=== PATIENT | male | born 1945 | race Caucasian/White ===

== ENCOUNTER 2017-12-12 15:57 | Inpatient (IN) | payer MEDICARE ==
[2017-12-12] MEDS ORDERED: ceFAZolin IN SWFI 2 GM/20 ML SYRINGE IVP ONE (16:09)
[2017-12-12] MEDS ORDERED: MORPHINE SULFATE 2 MG/ML SYRINGE IVP STA (16:20)
[2017-12-12] MEDS ORDERED: DIPH,PERTUS(ACELL)TETVAC-LF 0.5 ML VIAL IM ONE (16:35)
[2017-12-12 16:38] LABS: Basophils # (A) 0.1 k/uL (0-0.2); Basophils % (A) 1 %; Eosinophils # (A) 0.7 k/uL (0-0.7); Eosinophils % (A) 10 %; HCT 45.2 % (39.0-53.0); HGB 14.5 gm/dL (13.0-17.5); Lymphocytes # (A) 1.4 k/uL (1.0-4.8); Lymphocytes % (A) 21 %; MCH 30.6 pg (25.0-35.0); MCHC 32.2 g/dL (31.0-37.0); MCV 95.2 fL (80.0-100.0); Mean Platelet Volume 6.8; Monocytes # (A) 0.5 k/uL (0-1.0); Monocytes % (A) 7 %; Neutrophils # (A) 4.1 k/uL (1.3-7.7); Neutrophils % (A) 59 %; Platelet Count 310 k/uL (150-450); RBC 4.75 m/uL (4.30-5.90); RDW 13.3 % (11.5-15.5); WBC 6.9 k/uL (3.8-10.6)
--- NOTE | 2017-12-12 16:40 | XR ---
Left forearm HISTORY: Trauma and pain 2 views of the left forearm There is a comminuted intra-articular fracture of the distal metaphyseal left radius, comminuted frac ture of the distal ulna with displaced fracture fragments, angulation, lateral displacement of the di stal radius in relation to the ulna. Nonstandard views. Lucency in the soft tissues may be due to ope n fracture. There is soft tissue swelling. IMPRESSION: Findings suggest open fractures as described
[2017-12-12 16:48] LABS: Albumin 4.5 g/dL (3.5-5.0); Potassium 4.7 mmol/L (3.5-5.1); Total Bilirubin 0.7 mg/dL (0.2-1.3); Total Protein 7.3 g/dL (6.3-8.2)
[2017-12-12 16:53] LABS: INR 1.1 (<1.2); Prothrombin Time 10.4 sec (9.0-12.0)
[2017-12-12 16:55] LABS: Partial Thromboplastin Time 19.4 sec (22.0-30.0)
--- NOTE | 2017-12-12 17:25 | CT ---
EXAMINATION TYPE: CT brain saul phillips con DATE OF EXAM: 12/12/2017 COMPARISON: None HISTORY: Fall from ladder neck pain. Headache. CT DLP: 1421.3 mGycm Automated exposure control for dose reduction was used. TECHNIQUE: CT scan of the head and cervical spine are performed without contrast. FINDINGS: There is some cerebral cortical atrophy. There is no mass effect nor midline shift. There is no sign of intracranial hemorrhage. The calvarium is intact. There is opacification of most of th e right mastoid sinus. There is extensive mucosal thickening in the ethmoid sinus and maxillary sinus es. There is also involvement of frontal and sphenoid sinus. The calvarium is intact. Cervical vertebra have normal alignment. Posterior elements are intact. There is some mild narrowing and spurring at C5-6. Facet joints are intact. There is mild hypertrophic multilevel facet arthropath y. The skull base is intact. IMPRESSION: No acute intracranial abnormality. Severe pansinusitis. There is also chronic right mastoiditis. Ther e is mucosal thickening also in the right middle ear consistent with otitis media. Mild spondylotic changes in the cervical spine. No fracture.
--- NOTE | 2017-12-12 17:25 | ED ---
Upper Extremity HPI <Gregory Fulton - Last Filed: 12/12/17 17:32> - General Source: patient Mode of arrival: ambulatory Limitations: no limitations <Josefina Marx - Last Filed: 12/12/17 18:57> - General Chief Complaint: Extremity Injury, Upper Stated Complaint: CUT WRIST Time Seen by Provider: 12/12/17 16:08 - History of Present Illness Initial Comments: This a 72-year-old male with past medical history of type 2 diabetes, hypertension, coronary artery disease status post quadruple bypass on plavix who presents today for chief complaint of fall and left wrist pain. Patient states that about 20 minutes prior to arrival he was cleaning out his gutters, he rinsed off the deck. When he went up with the ladder he was two rungs from the roof he stated this was about 8 ft in the air, when the ladder slipped on the wet deck. When he reached the ground he extended his left outstretched hand which he stated took most of the fall he then rolled onto his left shoulder he hit his head on the deck after he rolled. Denies falling directly on his head. Patient denies falling onto his back or chest. Patient states that the pain in his wrist is 7/10, he can see his bone sticking through his skin. He was able to wiggle his fingers, they are warm to touch. Patient denies headache, chest pain, shortness breath, back pain, pain in any other extremity, gait abnormalities, dysphagia, speech changes. (Josefina Marx) - Related Data Home Medications Medication Instructions Recorded Confirmed ALPRAZolam [Xanax] 0.5 mg PO TID PRN 12/12/17 12/12/17 Albuterol Inhaler [Ventolin Hfa 1 puff INHALATION RT-Q6H PRN 12/12/17 12/12/17 Inhaler] Allopurinol [Zyloprim] 100 mg PO DAILY 12/12/17 12/12/17 Aspirin EC [Ecotrin Low Dose] 162 mg PO DAILY 12/12/17 12/12/17 Atorvastatin [Lipitor] 80 mg PO HS 12/12/17 12/12/17 Budesonide/Formoterol Fumarate 2 puff INHALATION RT-BID 12/12/17 12/12/17 [Symbicort 80-4.5 Mcg Inhaler] Clopidogrel Bisulfate [Plavix] 75 mg PO DAILY 12/12/17 12/12/17 Famotidine 40 mg PO BID 12/12/17 12/12/17 Fluticasone Nasal [place] [Flonase 1 spray EA NOSTRIL Q12H 12/12/17 12/12/17 Nasal [place]] Lisinopril [Zestril] 5 mg PO BID 12/12/17 12/12/17 Loratadine [Claritin] 10 mg PO DAILY PRN 12/12/17 12/12/17 Metoprolol Tartrate [Lopressor] 100 mg PO BID 12/12/17 12/12/17 Montelukast [Singulair] 10 mg PO DAILY 12/12/17 12/12/17 Sildenafil Citrate 100 mg PO DIRECTED PRN 12/12/17 12/12/17 metFORMIN HCL 1,000 mg PO BID 12/12/17 12/12/17 Allergies Allergy/AdvReac Type Severity Reaction Status Date / Time No Known Allergies Allergy Verified 12/12/17 16:46 Review of Systems ROS Other: All systems not noted in ROS Statement are negative. <Gregory Fulton - Last Filed: 12/12/17 17:32> ROS Other: All systems not noted in ROS Statement are negative. <Josefina Marx - Last Filed: 12/12/17 18:57> ROS Statement: Those systems with pertinent positive or pertinent negative responses have been documented in the HPI. Past Medical History Past Medical History: Coronary Artery Disease (CAD), Chest Pain / Angina, Diabetes Mellitus, Hyperlipidemia, Hypertension History of Any Multi-Drug Resistant Organisms: None Reported Past Surgical History: Coronary Bypass/CABG Past Psychological History: No Psychological Hx Reported Smoking Status: Former smoker Past Alcohol Use History: None Reported Past Drug Use History: None Reported <Josefina Marx - Last Filed: 12/12/17 18:57> General Exam <Gregory Fulton - Last Filed: 12/12/17 17:32> Limitations: no limitations <Josefina Marx - Last Filed: 12/12/17 18:57> - General Exam Comments Initial Comments: General: The patient is awake and alert, in no distress, and does not appear acutely ill. Eye: Pupils are equal, round and reactive to light, extra-ocular movements are intact. No nystagmus. There is normal conjunctiva bilaterally. No signs of icterus. Ears, nose, mouth and throat: There are moist mucous membranes and no oral lesions. Neck: The neck is supple, there is no tenderness or JVD. No midline or paravertebral tenderness to palpation of the C-spine. Patient is able to for flex, rotate, extend and lateral flex at the C-spine without difficulty or pain. Cardiovascular: There is a regular rate and rhythm. No murmur, rub or gallop is appreciated. Respiratory: Lungs are clear to auscultation, respirations are non-labored, breath sounds are equal. No wheezes, stridor, rales, or rhonchi. Gastrointestinal: Soft, non-distended, non-tender abdomen without masses or organomegaly noted. There is no rebound or guarding present. No CVA tenderness. Bowel sounds are unremarkable. Musculoskeletal: Gross deformity of the left wrist, laterally. 2cm laceration with penetrating bone fragments. Pt unable to range at the left wrist secondary to pain, tenderness to palpation over the distal forearm. Compartments soft and compressible. Pt able to wiggle fingers. Sensation intact of the hands b/l. Unable to palpate the radial pulse, the left hand is warm and capillary refill < 2seconds. Right radial pulse 2+. Pt is able to make the ok, fingers crossed and thumbs up sign with the left hand. Patient denies any pain to palpation over the shoulders, elbows, hips, knees, lower extremities and feet bilaterally. Pelvic rock negative. No rotation noted of the lower external ears bilaterally. Full range motion with strength 5/5 of the lower extremities equally bilaterally. 5/5 strength at the shoulder and elbows of the UE b/l. Neurological: A&O x 3. CN II-XII intact, There are no obvious motor or sensory deficits. Coordination appears grossly intact. Speech is normal. Skin: Skin is warm and dry and no rashes or lesions are noted. Psychiatric: Cooperative, appropriate mood & affect, normal judgment. (Josefina Marx) Vital Signs 12/12/17 16:04 Temperature 98.2 F Pulse Rate 86 Respiratory 20 Rate Blood Pressure 180/96 O2 Sat by Pulse 100 Oximetry Medical Decision Making - Lab Data Result diagrams: 12/12/17 16:27 12/12/17 16:27 <Gregory Fulton - Last Filed: 12/12/17 17:32> - Lab Data Result diagrams: 12/12/17 16:27 12/12/17 16:27 <Josefina Marx - Last Filed: 12/12/17 18:57> - Medical Decision Making I, Pablo Fulton, personally saw and examined the patient. I have reviewed and agree with the PA findings, including all diagnostic interpretations and treatment plans as written unless otherwise stated. I was present for the reyes portions of any procedures performed and the inclusive time noted for any critical care statement. (Gregory Fulton) CT negative for intracranial process, revealed acute otitis media. X-ray left wrist revealed a comminuted intra-articular fracture the distal left radius with a comminuted fracture of the distal ulna with displacement of fragments, angulatin and mild lateral displacement of the distal radius in relation to ulna. The ulna has penetrated through the soft tissues of the lateral aspect of the wrist. Pt was started on 2g ancef prior to imaging. Labs obtained and reviewed. Orthopedics consulted at 4:30 PM. I spoke with Es the Physician Exercise Specialist. I paged a second time at 5:25pm. Dr. Rowland returned page immediately, admitted pt for operative washout and closed reduction with IV abx. No further instruction. Pt admitted to [facility] in stable condition. (Josefina Marx) - Lab Data Lab Results 12/12/17 12/12/17 12/12/17 Range/Units 16:27 16:27 16:27 WBC 6.9 (3.8-10.6) k/uL RBC 4.75 (4.30-5.90) m/uL Hgb 14.5 (13.0-17.5) gm/dL Hct 45.2 (39.0-53.0) % MCV 95.2 (80.0-100.0) fL MCH 30.6 (25.0-35.0) pg MCHC 32.2 (31.0-37.0) g/dL RDW 13.3 (11.5-15.5) % Plt Count 310 (150-450) k/uL Neutrophils % 59 % Lymphocytes % 21 % Monocytes % 7 % Eosinophils % 10 % Basophils % 1 % Neutrophils # 4.1 (1.3-7.7) k/uL Lymphocytes # 1.4 (1.0-4.8) k/uL Monocytes # 0.5 (0-1.0) k/uL Eosinophils # 0.7 (0-0.7) k/uL Basophils # 0.1 (0-0.2) k/uL PT (9.0-12.0) sec INR (<1.2) APTT (22.0-30.0) sec Sodium 141 (137-145) mmol/L Potassium 4.7 (3.5-5.1) mmol/L Chloride 107 (98-107) mmol/L Carbon Dioxide 19 L (22-30) mmol/L Anion Gap 15 mmol/L BUN 23 H (9-20) mg/dL Creatinine 1.02 (0.66-1.25) mg/dL Est GFR (CKD-EPI)AfAm 86 (>60 ml/min/1.73 sqM) Est GFR (CKD-EPI)NonAf 74 (>60 ml/min/1.73 sqM) Glucose 125 H (74-99) mg/dL Calcium 10.0 (8.4-10.2) mg/dL Total Bilirubin 0.7 (0.2-1.3) mg/dL AST 33 (17-59) U/L ALT 37 (21-72) U/L Alkaline Phosphatase 85 (38-126) U/L Total Protein 7.3 (6.3-8.2) g/dL Albumin 4.5 (3.5-5.0) g/dL Blood Type A Positive Blood Type Recheck No Antibody Screen NEGATIVE Spec Expiration Date 12/15/2017232612/12/17 Range/Units 16:27 WBC (3.8-10.6) k/uL RBC (4.30-5.90) m/uL Hgb (13.0-17.5) gm/dL Hct (39.0-53.0) % MCV (80.0-100.0) fL MCH (25.0-35.0) pg MCHC (31.0-37.0) g/dL RDW (11.5-15.5) % Plt Count (150-450) k/uL Neutrophils % % Lymphocytes % % Monocytes % % Eosinophils % % Basophils % % Neutrophils # (1.3-7.7) k/uL Lymphocytes # (1.0-4.8) k/uL Monocytes # (0-1.0) k/uL Eosinophils # (0-0.7) k/uL Basophils # (0-0.2) k/uL PT 10.4 (9.0-12.0) sec INR 1.1 (<1.2) APTT 19.4 L (22.0-30.0) sec Sodium (137-145) mmol/L Potassium (3.5-5.1) mmol/L Chloride (98-107) mmol/L Carbon Dioxide (22-30) mmol/L Anion Gap mmol/L BUN (9-20) mg/dL Creatinine (0.66-1.25) mg/dL Est GFR (CKD-EPI)AfAm (>60 ml/min/1.73 sqM) Est GFR (CKD-EPI)NonAf (>60 ml/min/1.73 sqM) Glucose (74-99) mg/dL Calcium (8.4-10.2) mg/dL Total Bilirubin (0.2-1.3) mg/dL AST (17-59) U/L ALT (21-72) U/L Alkaline Phosphatase (38-126) U/L Total Protein (6.3-8.2) g/dL Albumin (3.5-5.0) g/dL Blood Type Blood Type Recheck Antibody Screen Spec Expiration Date Disposition <Gregory Fulton - Last Filed: 12/12/17 17:32> Is patient prescribed a controlled substance at d/c from ED?: No Time of Disposition: 17:30 Decision Date: 12/12/17 Decision Time: 17:30 <Josefina Marx - Last Filed: 12/12/17 18:57> Clinical Impression: Open fracture of distal ulna, Displaced comminuted fracture of shaft of radius , left arm, initial encounter for closed fracture Disposition: HOME SELF-CARE Condition: Stable
[2017-12-12] MEDS ORDERED: SODIUM CHLORIDE 0.9% 1,000 ML IV SCH ×2 (17:30→20:00)
[2017-12-12] MEDS ORDERED: fentaNYL (PF) 50 MCG/ML 2 ML AMP ONE (18:42)
[2017-12-12] MEDS ORDERED: LACTATED RINGERS 1,000 ML IV ONE (18:42)
[2017-12-12] MEDS ORDERED: ROCURONIUM BROMIDE 10 MG/ML 10 ML VIAL IV ONE (18:42)
[2017-12-12] MEDS ORDERED: LIDOCAINE 1% INJ 10MG/ML (20 ML MDV) ONE (18:42)
[2017-12-12] MEDS ORDERED: MIDAZOLAM 2 MG/2 ML VIAL ONE (18:42)
[2017-12-12] MEDS ORDERED: HYDROmorphone (PF) 1 MG/ML ONE (18:42)
[2017-12-12] MEDS ORDERED: PROPOFOL 10 MG/ML 20 ML VIAL IV ONE (18:42)
[2017-12-12] MEDS ORDERED: SODIUM CHLORIDE 0.9% IRRIGATIO 3,000 ML IRRIGATION ONE (18:45)
--- NOTE | 2017-12-12 18:46 | P.HPOR ---
History of Present Illness H&P Date: 12/12/17 The patient is a right-hand dominant 72-year-old male with a medical history significant for type 2 diabetes who presents with an isolated injury to his left wrist. Earlier today the patient fell off his ladder and injured the left arm. He had an open wound and deformity of the wrist. He was brought to the ER where x-rays and clinical exam showed an open distal radius and ulna fracture. At the time of my evaluation the patient is complaining of isolated left wrist pain. He denies hitting his head or losing consciousness. He denies pain in his neck or back. Past Medical History Past Medical History: Coronary Artery Disease (CAD), Chest Pain / Angina, Diabetes Mellitus, Hyperlipidemia, Hypertension History of Any Multi-Drug Resistant Organisms: None Reported Past Surgical History: Coronary Bypass/CABG Past Psychological History: No Psychological Hx Reported Smoking Status: Former smoker Past Alcohol Use History: None Reported Past Drug Use History: None Reported Medications and Allergies Home Medications Medication Instructions Recorded Confirmed Type ALPRAZolam [Xanax] 0.5 mg PO TID PRN 12/12/17 12/12/17 History Albuterol Inhaler [Ventolin Hfa 1 puff INHALATION RT-Q6H PRN 12/12/17 12/12/17 History Inhaler] Allopurinol [Zyloprim] 100 mg PO DAILY 12/12/17 12/12/17 History Aspirin EC [Ecotrin Low Dose] 162 mg PO DAILY 12/12/17 12/12/17 History Atorvastatin [Lipitor] 80 mg PO HS 12/12/17 12/12/17 History Budesonide/Formoterol Fumarate 2 puff INHALATION RT-BID 12/12/17 12/12/17 History [Symbicort 80-4.5 Mcg Inhaler] Clopidogrel Bisulfate [Plavix] 75 mg PO DAILY 12/12/17 12/12/17 History Famotidine 40 mg PO BID 12/12/17 12/12/17 History Fluticasone Nasal [place] [Flonase 1 spray EA NOSTRIL Q12H 12/12/17 12/12/17 History Nasal [place]] Lisinopril [Zestril] 5 mg PO BID 12/12/17 12/12/17 History Loratadine [Claritin] 10 mg PO DAILY PRN 12/12/17 12/12/17 History Metoprolol Tartrate [Lopressor] 100 mg PO BID 12/12/17 12/12/17 History Montelukast [Singulair] 10 mg PO DAILY 12/12/17 12/12/17 History Sildenafil Citrate 100 mg PO DIRECTED PRN 12/12/17 12/12/17 History metFORMIN HCL 1,000 mg PO BID 12/12/17 12/12/17 History Allergies Allergy/AdvReac Type Severity Reaction Status Date / Time No Known Allergies Allergy Verified 12/12/17 16:46 Physical Examination on examination the patient is in no apparent distress and is alert and able to answer questions. His head is normocephalic and atraumatic. He has no cervical spine tenderness. He demonstrates nonlabored breathing with symmetric chest expansion. He has no obvious deformities or tenderness throughout the right upper extremity and bilateral lower extremities. A focused examination of the left upper extremity was conducted. On inspection there is a dressing over the ulnar aspect of the arm. the dressing is saturated with blood. There is an open wound along the ulnar border of the wrist. There is an obvious deformity at the distal forearm. There is no tenderness over the left shoulder elbow. The arm and forearm are soft. The radial pulses palpable. The fingers are warm and well-perfused brisk capillary refill. Motor and sensory function are intact in the distribution of the median, ulnar, and radial nerves. There is no pain with passive range of motion of the fingers. Results x-rays of the left forearm show a displaced, comminuted intra-articular distal radius and ulna fracture - Labs Labs: Abnormal Lab Results - Last 24 Hours (Table) 12/12/17 12/12/17 Range/Units 16:27 16:27 APTT 19.4 L (22.0-30.0) sec Carbon Dioxide 19 L (22-30) mmol/L BUN 23 H (9-20) mg/dL Glucose 125 H (74-99) mg/dL H & H 12/12/17 Range/Units 16:27 Hgb 14.5 (13.0-17.5) gm/dL Hct 45.2 (39.0-53.0) % Coagulation 12/12/17 Range/Units 16:27 INR 1.1 (<1.2) Result Diagrams: 12/12/17 16:27 12/12/17 16:27 Assessment and Plan Assessment: The patient is a right-hand dominant 72-year-old male with a medical history significant for type 2 diabetes and coronary artery disease presenting with an open left distal radius and ulna fracture Plan: I recommended taking the patient for an urgent irrigation and debridement, closed reduction, pinning, and application of splint for his left forearm injury. He was given IV antibiotics in the emergency department and he will be kept overnight to receive 2 more doses of IV antibiotics. I have artery discussed the case with my hand partner Dr. Kvng Kelly who has agreed to definitively manage the patient's fractures on an outpatient basis. We discussed the potential risks and complications of the above mentioned procedure and also that he will likely need definitive fixation. The patient agreed to this and provided his consent to go forward with surgery.
[2017-12-12] MEDS ORDERED: HYDROcodone/APAP 5-325MG 1 EACH TAB PO PRN ×2 (19:56)
[2017-12-12] MEDS ORDERED: NALOXONE 0.4 MG/ML 1 ML VIAL IV PRN (19:56)
--- NOTE | 2017-12-12 19:56 | P.OP ---
Date of Procedure: 12/12/17 Preoperative Diagnosis: 1. open left distal radius and ulna fracture 2. Type 2 diabetes 3. Coronary artery disease Postoperative Diagnosis: same Procedure(s) Performed: 1. Closed reduction and percutaneous pinning left distal radius fracture as part of a staged procedure 2. Irrigation and debridement of open left distal radius and ulna fracture ( skin, subcutaneous tissue, muscle, and devitalized bone was sharply debrided with a scalpel) 3. Application of long-arm splint by physician, left arm Anesthesia: GETA Surgeon: Lukasz Rachel Estimated Blood Loss (ml): 25 IV fluids (ml): 500 Pathology: none sent Condition: stable Disposition: PACU Indications for Procedure: the patient is a 72-year-old male with a medical history significant for type 2 diabetes and coronary artery disease who sustained an isolated injury to his left wrist when he fell off a ladder earlier today. He was brought to the emergency department where he was found to have an open, highly comminuted intra -articular distal radius and ulna fracture. Orthopedics was consulted. He was given IV antibiotics in the emergency department. I spoke with my hand partner Dr. Kvng Kelly who agreed to definitively manage the patient and recommended an urgent irrigation and debridement, closed reduction, pinning, and application of splint. I agreed to temporize the patient. I met with the patient preoperatively and we discussed that tonight procedure was to irrigate and debride the open fracture and stabilized the wrist. The patient understands that he will need definitive surgery with Dr. Kelly. We discussed the potential risks and Locations of tonight surgery including but not limited to risk of anesthesia, risk of superficial infection, risk of deep infection, risk of delayed wound healing, risk of superficial wound necrosis, risk of damage to local blood vessels or nerves, and need for further surgery. The patient provided his consent to go forward with the above-mentioned procedure. Description of Procedure: the patient was met in preoperative holding and the correct left arm was marked with my initials. I reviewed the consent form with the patient and all of his questions were answered. He was brought to the operating room where he was positioned on a gurney. A general anesthetic and preoperative antibiotics were administered. The splint was taken down and there was a 3 cm open wound over the ulnar aspect of the distal wrist. There was exposed bone. The left arm was prepped and draped in the standard sterile fashion. Prior to starting surgery timeout was performed identifying the correct patient, operative extremity, and procedure. The patient's arm was then positioned on an arm table for surgery. I began by exploring, debriding, and copiously irrigating the open wound. The ulna fracture is found to be highly comminuted with several loose pieces. The wound was copiously irrigated with 3 L of sterile saline after I sharply debrided dirt and debris of the skin, subcutaneous tissue, muscle, and bone. Once the wound was irrigated I reduced the fracture and placed a K wire from the radial styloid into the shaftto provide additional fixation given the severe instability and the patient's wrist. The ulnar wound was then loosely reapproximated using 3-0 nylon. A sterile dressing was applied followed by a well-padded sugar tong splint with mold. The patient was then awoken from his anesthetic, and transferred to the PACU having tolerated the procedure well. Plan: The patient is going to be admitted overnight for a medicine consultation and 2 doses of postoperative antibiotics for his open fracture. The patient can discharge home tomorrow once his pain is controlled and he is receive 2 doses of postoperative antibiotics. The patient will follow up with Dr. Kvng Kelly next Saturday to discuss definitive treatment.
[2017-12-12] MEDS ORDERED: fentaNYL (PF) 50 MCG/ML 2 ML AMP IVP ONE ×2 (20:01→20:19)
[2017-12-12 20:49] LABS: Glucose,Whole Blood 147 mg/dL (75-99)
[2017-12-12 21:18] VITALS: BMI 27.1
[2017-12-12] MEDS: HYDROmorphone 1 MG/ML 1 ML SYRINGE IVP PRN (21:24)
[2017-12-13] MEDS: HYDROmorphone 1 MG/ML 1 ML SYRINGE IVP PRN ×3 (00:25→06:36)
[2017-12-13] MEDS: ceFAZolin IN SWFI 2 GM/20 ML SYRINGE IVP SCH ×2 (00:26→08:11)
--- NOTE | 2017-12-13 08:35 | P.DS ---
Providers Date of admission: 12/12/17 18:42 Expected date of discharge: 12/13/17 Attending physician: Lukasz Rachel Primary care physician: Segundo Anton - Discharge Diagnosis(es) (1) Displaced comminuted fracture of shaft of radius, left arm, initial encounter for closed fracture Current Visit: Yes Status: Acute (2) Open fracture of distal ulna Current Visit: Yes Status: Acute Hospital Course: The patient is a 72-year-old male who presented to the emergency department after sustaining a fall off a ladder 7 feet. He was found to have a comminuted and displaced distal radius fracture and open ulna fracture. He was taken to the operating room by Dr. Rachel for a closed reduction, irrigation and debridement, percutaneous pinning of the distal radius, and application of sugar tong splint. The procedure went well with no sequelae. Today, the patient's vitals are stable. The patient is having pain as expected and is currently receiving oral and IV pain medications. The patient's splint is clean dry and intact. He is able to wiggle his fingers. Neurological and circulatory status is intact. No other noted injuries at this time. CT of the head and neck was negative for fracture. The patient is stable for discharge home with follow-up in our office next week. Patient will follow-up with Dr. Ariel Kelly, our hand surgeon. Patient Condition at Discharge: Stable Plan - Discharge Summary Discharge Rx Participant: Yes New Discharge Prescriptions: New HYDROcodone/APAP 5-325MG [[place] 5] 1 - 2 each PO Q4-6H PRN #60 tab PRN Reason: Pain No Action Montelukast [Singulair] 10 mg PO DAILY Famotidine 40 mg PO BID Allopurinol [Zyloprim] 100 mg PO DAILY Sildenafil Citrate 100 mg PO DIRECTED PRN PRN Reason: ERECTILE DYSFUNCTION metFORMIN HCL 1,000 mg PO BID Budesonide/Formoterol Fumarate [Symbicort 80-4.5 Mcg Inhaler] 2 puff INHALATION RT-BID Atorvastatin [Lipitor] 80 mg PO HS Metoprolol Tartrate [Lopressor] 100 mg PO BID Lisinopril [Zestril] 5 mg PO BID Clopidogrel Bisulfate [Plavix] 75 mg PO DAILY Aspirin EC [Ecotrin Low Dose] 162 mg PO DAILY Albuterol Inhaler [Ventolin Hfa Inhaler] 1 puff INHALATION RT-Q6H PRN PRN Reason: Shortness Of Breath Loratadine [Claritin] 10 mg PO DAILY PRN PRN Reason: Allergy Symptoms Fluticasone Nasal [place] [Flonase Nasal [place]] 1 spray EA NOSTRIL Q12H ALPRAZolam [Xanax] 0.5 mg PO TID PRN PRN Reason: Anxiety Discharge Medication List ALPRAZolam [Xanax] 0.5 mg PO TID PRN 12/12/17 [History] Albuterol Inhaler [Ventolin Hfa Inhaler] 1 puff INHALATION RT-Q6H PRN 12/12/17 [ History] Allopurinol [Zyloprim] 100 mg PO DAILY 12/12/17 [History] Aspirin EC [Ecotrin Low Dose] 162 mg PO DAILY 12/12/17 [History] Atorvastatin [Lipitor] 80 mg PO HS 12/12/17 [History] Budesonide/Formoterol Fumarate [Symbicort 80-4.5 Mcg Inhaler] 2 puff INHALATION RT-BID 12/12/17 [History] Clopidogrel Bisulfate [Plavix] 75 mg PO DAILY 12/12/17 [History] Famotidine 40 mg PO BID 12/12/17 [History] Fluticasone Nasal [place] [Flonase Nasal [place]] 1 spray EA NOSTRIL Q12H 12/12/17 [ History] Lisinopril [Zestril] 5 mg PO BID 12/12/17 [History] Loratadine [Claritin] 10 mg PO DAILY PRN 12/12/17 [History] Metoprolol Tartrate [Lopressor] 100 mg PO BID 12/12/17 [History] Montelukast [Singulair] 10 mg PO DAILY 12/12/17 [History] Sildenafil Citrate 100 mg PO DIRECTED PRN 12/12/17 [History] metFORMIN HCL 1,000 mg PO BID 12/12/17 [History] HYDROcodone/APAP 5-325MG [[place] 5] 1 - 2 each PO Q4-6H PRN #60 tab 12/13/17 [Rx] Follow up Appointment(s)/Referral(s): Segundo Anton MD [Primary Care Provider] - 1-2 days Ariel Kelly DO [Doctor of Osteopathic Medicine] - 12/18/17 Activity/Diet/Wound Care/Special Instructions: 1. Non-weight bearing on your left arm 2. Keep splint on at all times, do not remove 3. Use a sling for comfort 4. Take pain medications as prescribed Discharge Disposition: HOME SELF-CARE
--- NOTE | 2017-12-13 09:07 | FL ---
EXAMINATION TYPE: FL guidance operating room DATE OF EXAM: 12/12/2017 HISTORY: Flouroscopy time 45 seconds of fluoroscopy provided. IMPRESSION: 1. Fluoroscopy time.
--- NOTE | 2017-12-13 09:17 | XR ---
EXAMINATION TYPE: XR wrist limited LT DATE OF EXAM: 12/12/2017 COMPARISON: NONE HISTORY: Intraoperative TECHNIQUE: One view submitted FINDINGS: Comminuted fractures of the distal radius and ulna persist with postsurgical change. IMPRESSION: Postsurgical change
[2017-12-13 09:50] VITALS: BP 136/69; PULSE 97; RESP 16; TEMP 97.6
[2017-12-13] MEDS ORDERED: HYDROcodone/APAP 7.5-325MG 1 EACH TAB PO PRN (11:54)
== END 2017-12-13 16:05 | disposition home or self-care (01) | DRG 512 ==
LOC: EC 15:57 → 3SUR 18:14 → OBSVTOIN 18:42
PROVIDERS: ADMIT Orthopaedic Surgery; ATTEND Orthopaedic Surgery
PROC: 0PSJ04Z Reposition Left Radius with Internal Fixation Device, Open Approach (ICD-10-PCS; 2017-12-12)
PROC: 0PSL04Z Reposition Left Ulna with Internal Fixation Device, Open Approach (ICD-10-PCS; 2017-12-12)
PROC: 3E0234Z Introduction of Serum, Toxoid and Vaccine into Muscle, Percutaneous Approach (ICD-10-PCS; 2017-12-12)
PROC: 0PBL0ZZ Excision of Left Ulna, Open Approach (ICD-10-PCS; principal; 2017-12-12 18:25)
DX: S52.502B Unspecified fracture of the lower end of left radius, initial encounter for open fracture type I or II (principal); S52.602B Unspecified fracture of lower end of left ulna, initial encounter for open fracture type I or II; E11.9 Type 2 diabetes mellitus without complications; Z23 Encounter for immunization; I25.10 Atherosclerotic heart disease of native coronary artery without angina pectoris; E78.5 Hyperlipidemia, unspecified; I10 Essential (primary) hypertension; M10.9 Gout, unspecified; Z79.84 Long term (current) use of oral hypoglycemic drugs; Z79.02 Long term (current) use of antithrombotics/antiplatelets; Z79.82 Long term (current) use of aspirin; Z79.51 Long term (current) use of inhaled steroids; Z79.899 Other long term (current) drug therapy; Z95.1 Presence of aortocoronary bypass graft; Z87.19 Personal history of other diseases of the digestive system; Z87.891 Personal history of nicotine dependence; W11.XXXA Fall on and from ladder, initial encounter
CPT/HCPCS: 36415; 70450; 72125; 80053; 85025; 85610; 85730; 86850; 86900; 86901; 90471; 90715; 96361; 96374; 96375; 99285

== ENCOUNTER 2021-08-29 02:50 | Emergency (ER) | payer MEDICARE ==
[2021-08-29 02:58] VITALS: BP 169/84; PULSE 74; RESP 22; TEMP 98.1
[2021-08-29 03:25] LABS: Appearance,Urine Clear (Clear); Bilirubin,Urine Negative (Negative); Blood,Urine Trace (Negative); Color,Urine Light Yellow; Glucose,Urine (UA) 4+ (Negative); Ketones,Urine Negative (Negative); Leukocyte Esterase,Urine Negative (Negative); Nitrite,Urine Negative (Negative); PH, Urine 5.5 (5.0-8.0); Protein,Urine Negative (Negative); RBC,Urine <1 /hpf (0-5); Specific Gravity,Urine 1.004 (1.001-1.035); Urobilinogen,Urine <2.0 mg/dL (<2.0); WBC,Urine 1 /hpf (0-5)
[2021-08-29 03:28] LABS: Glucose,Whole Blood 143 mg/dL (75-99)
[2021-08-29 03:44] LABS: Basophils # (A) 0.1 k/uL (0-0.2); Basophils % (A) 1 %; Eosinophils # (A) 0.5 k/uL (0-0.7); Eosinophils % (A) 4 %; HCT 49.3 % (39.0-53.0); HGB 15.7 gm/dL (13.0-17.5); Lymphocytes # (A) 0.9 k/uL (1.0-4.8); Lymphocytes % (A) 8 %; MCH 30.9 pg (25.0-35.0); MCHC 31.8 g/dL (31.0-37.0); MCV 97.2 fL (80.0-100.0); Mean Platelet Volume 8.1; Monocytes # (A) 0.9 k/uL (0-1.0); Monocytes % (A) 8 %; Neutrophils # (A) 9.4 k/uL (1.3-7.7); Neutrophils % (A) 78 %; Platelet Count 259 k/uL (150-450); RBC 5.07 m/uL (4.30-5.90); RDW 13.4 % (11.5-15.5); WBC 11.9 k/uL (3.8-10.6)
--- NOTE | 2021-08-29 03:49 | XR ---
EXAMINATION TYPE: XR KUB DATE OF EXAM: 08/29/2021 COMPARISON: NONE HISTORY: Urine retention TECHNIQUE: 2 views upright FINDINGS: No evidence of intestinal obstruction or pneumoperitoneum. Fecal pattern is normal. There i s rounded 3 mm calcification over the left kidney. There is small rounded calcifications also over th e right kidney. IMPRESSION: Bilateral renal calculi. Nonacute abdomen.
--- NOTE | 2021-08-29 03:56 | ED ---
Male Urogenital HPI - General Chief complaint: Urogenital Stated complaint: Abdominal Pain, urine retention Time Seen by Provider: 08/29/21 03:06 Source: patient, RN notes reviewed Mode of arrival: ambulatory Limitations: no limitations - History of Present Illness Initial comments: This is a pleasant 75-year-old male who presents to emergency department complaining of urinary retention. Patient states just started several hours ago. Patient states she's been able to get only a small amount of urine out very frequently. Patient believes it might be due to his new diabetes medication, Jiardiance. He states she's been on this medication for about 1 month. Patient denying any fever or chills. Has some pressure in the suprapubic area. Patient was able to out about 20 mL of urine when he was in triage. Patient has no history of prostate cancer. No significant history of BPH other than age-related. Denying any nausea or vomiting. Minimal dysuria. No rashes or lesions. No testicular pain. Penile discharge. No headache, no fever or chills, no changes in vision or hearing, no sore throat or difficulty with speech, no neck pain, no chest pain or shortness of breath, , no nausea or vomiting, no changes in bowel movements, no numbness or tingling, no extremity pain, no skin rashes or lesions. Onset/Timin -: days(s) - Related Data Home Medications Medication Instructions Recorded Confirmed ALPRAZolam [Xanax] 0.5 mg PO TID PRN 12/12/17 12/12/17 Albuterol Inhaler (Mhu) [Ventolin 1 puff INHALATION RT-Q6H PRN 12/12/17 12/12/17 Hfa Inhaler] Aspirin EC [Ecotrin Low Dose] 162 mg PO DAILY 12/12/17 12/12/17 Atorvastatin [Lipitor] 80 mg PO HS 12/12/17 12/12/17 Budesonide/Formoterol Fumarate 2 puff INHALATION RT-BID 12/12/17 12/12/17 [Symbicort 80-4.5 Mcg Inhaler] Clopidogrel Bisulfate [Plavix] 75 mg PO DAILY 12/12/17 12/12/17 Famotidine 40 mg PO BID 12/12/17 12/12/17 Fluticasone Nasal [place] [Flonase 1 spray EA NOSTRIL Q12H 12/12/17 12/12/17 Nasal [place]] Loratadine [Claritin] 10 mg PO DAILY PRN 12/12/17 12/12/17 Metoprolol Tartrate [Lopressor] 100 mg PO BID 12/12/17 12/12/17 Montelukast [Singulair] 10 mg PO DAILY 12/12/17 12/12/17 Sildenafil Citrate 100 mg PO DIRECTED PRN 12/12/17 12/12/17 allopurinoL [Zyloprim] 100 mg PO DAILY 12/12/17 12/12/17 lisinopriL [Zestril] 5 mg PO BID 12/12/17 12/12/17 metFORMIN HCL [Glucophage] 1,000 mg PO BID 12/12/17 12/12/17 Previous Rx's Medication Instructions Recorded Hydrocodone/Acetaminophen [[place] 1 - 2 tab PO Q4-6H PRN 7 Days #60 12/13/17 7.5-325] tab Allergies Allergy/AdvReac Type Severity Reaction Status Date / Time No Known Allergies Allergy Verified 08/29/21 02:58 Review of Systems ROS Statement: Those systems with pertinent positive or pertinent negative responses have been documented in the HPI. ROS Other: All systems not noted in ROS Statement are negative. Past Medical History Past Medical History: Coronary Artery Disease (CAD), Chest Pain / Angina, Diabetes Mellitus, Hyperlipidemia, Hypertension History of Any Multi-Drug Resistant Organisms: None Reported Past Surgical History: Coronary Bypass/CABG Past Psychological History: No Psychological Hx Reported Smoking Status: Never smoker Past Alcohol Use History: None Reported Past Drug Use History: None Reported General Exam - General Exam Comments Initial Comments: Patient minimal distress secondary to urinary retention. Does not appear to be ill or toxic. Vital signs reviewed, cranial nerves II through XII grossly intact Limitations: no limitations General appearance: alert, in distress Head exam: Present: atraumatic, normocephalic, normal inspection Eye exam: Present: normal appearance, PERRL, EOMI. Absent: scleral icterus, conjunctival injection, periorbital swelling ENT exam: Present: normal exam, mucous membranes moist Neck exam: Present: normal inspection. Absent: tenderness, meningismus, lymphadenopathy Respiratory exam: Present: normal lung sounds bilaterally. Absent: respiratory distress, wheezes, rales, rhonchi, stridor Cardiovascular Exam: Present: regular rate, normal rhythm, normal heart sounds. Absent: systolic murmur, diastolic murmur, rubs, gallop, clicks GI/Abdominal exam: Present: soft, tenderness (Mild tenderness in suprapubic area with evidence of distended urinary bladder.), normal bowel sounds. Absent: distended, guarding, rebound, rigid Extremities exam: Present: normal inspection, full ROM, normal capillary refill. Absent: tenderness, pedal edema, joint swelling, calf tenderness Back exam: Present: normal inspection Neurological exam: Present: alert, oriented X3, CN II-XII intact Psychiatric exam: Present: normal affect, normal mood Skin exam: Present: warm, dry, intact, normal color. Absent: rash Course Vital Signs 08/29/21 02:53 Temperature 98.1 F Pulse Rate 74 Respiratory 22 Rate Blood Pressure 169/84 O2 Sat by Pulse 97 Oximetry Medical Decision Making - Medical Decision Making Romero catheter was placed. Patient had 1900 mL of urine output. Patient will be sent home with a Romero catheter. Patient will be given follow-up with urology. There was no evidence of infectious process. Patient's urine did have 4+ glucose but his blood sugar was in the 130s on Accu-Chek. - Lab Data Result diagrams: 08/29/21 03:34 08/29/21 03:34 Lab Results 08/29/21 08/29/21 08/29/21 Range/Units 03:01 03:26 03:34 WBC 11.9 H (3.8-10.6) k/uL RBC 5.07 (4.30-5.90) m/uL Hgb 15.7 (13.0-17.5) gm/dL Hct 49.3 (39.0-53.0) % MCV 97.2 (80.0-100.0) fL MCH 30.9 (25.0-35.0) pg MCHC 31.8 (31.0-37.0) g/dL RDW 13.4 (11.5-15.5) % Plt Count 259 (150-450) k/uL MPV 8.1 Neutrophils % 78 % Lymphocytes % 8 % Monocytes % 8 % Eosinophils % 4 % Basophils % 1 % Neutrophils # 9.4 H (1.3-7.7) k/uL Lymphocytes # 0.9 L (1.0-4.8) k/uL Monocytes # 0.9 (0-1.0) k/uL Eosinophils # 0.5 (0-0.7) k/uL Basophils # 0.1 (0-0.2) k/uL Sodium (137-145) mmol/L Potassium (3.5-5.1) mmol/L Chloride (98-107) mmol/L Carbon Dioxide (22-30) mmol/L Anion Gap mmol/L BUN (9-20) mg/dL Creatinine (0.66-1.25) mg/dL Est GFR (CKD-EPI)AfAm (>60 ml/min/1.73 sqM) Est GFR (CKD-EPI)NonAf (>60 ml/min/1.73 sqM) Glucose (74-99) mg/dL POC Glucose (mg/dL) 143 H (75-99) mg/dL POC Glu Biomathematician ID Shelton, Vik Calcium (8.4-10.2) mg/dL Total Bilirubin (0.2-1.3) mg/dL AST (17-59) U/L ALT (4-49) U/L Alkaline Phosphatase (38-126) U/L Total Protein (6.3-8.2) g/dL Albumin (3.5-5.0) g/dL Urine Color Light Yellow Urine Appearance Clear (Clear) Urine pH 5.5 (5.0-8.0) Ur Specific [place] 1.004 (1.001-1.035) Urine Protein Negative (Negative) Urine Glucose (UA) 4+ H (Negative) Urine Ketones Negative (Negative) Urine Blood Trace H (Negative) Urine Nitrite Negative (Negative) Urine Bilirubin Negative (Negative) Urine Urobilinogen <2.0 (<2.0) mg/dL Ur Leukocyte Esterase Negative (Negative) Urine RBC <1 (0-5) /hpf Urine WBC 1 (0-5) /hpf 08/29/21 Range/Units 03:34 WBC (3.8-10.6) k/uL RBC (4.30-5.90) m/uL Hgb (13.0-17.5) gm/dL Hct (39.0-53.0) % MCV (80.0-100.0) fL MCH (25.0-35.0) pg MCHC (31.0-37.0) g/dL RDW (11.5-15.5) % Plt Count (150-450) k/uL MPV Neutrophils % % Lymphocytes % % Monocytes % % Eosinophils % % Basophils % % Neutrophils # (1.3-7.7) k/uL Lymphocytes # (1.0-4.8) k/uL Monocytes # (0-1.0) k/uL Eosinophils # (0-0.7) k/uL Basophils # (0-0.2) k/uL Sodium 135 L (137-145) mmol/L Potassium 4.3 (3.5-5.1) mmol/L Chloride 103 (98-107) mmol/L Carbon Dioxide 20 L (22-30) mmol/L Anion Gap 12 mmol/L BUN 17 (9-20) mg/dL Creatinine 1.24 (0.66-1.25) mg/dL Est GFR (CKD-EPI)AfAm 67 (>60 ml/min/1.73 sqM) Est GFR (CKD-EPI)NonAf 58 (>60 ml/min/1.73 sqM) Glucose 144 H (74-99) mg/dL POC Glucose (mg/dL) (75-99) mg/dL POC Glu Biomathematician ID Calcium 9.7 (8.4-10.2) mg/dL Total Bilirubin 1.0 (0.2-1.3) mg/dL AST 30 (17-59) U/L ALT 20 (4-49) U/L Alkaline Phosphatase 81 (38-126) U/L Total Protein 7.1 (6.3-8.2) g/dL Albumin 4.3 (3.5-5.0) g/dL Urine Color Urine Appearance (Clear) Urine pH (5.0-8.0) Ur Specific [place] (1.001-1.035) Urine Protein (Negative) Urine Glucose (UA) (Negative) Urine Ketones (Negative) Urine Blood (Negative) Urine Nitrite (Negative) Urine Bilirubin (Negative) Urine Urobilinogen (<2.0) mg/dL Ur Leukocyte Esterase (Negative) Urine RBC (0-5) /hpf Urine WBC (0-5) /hpf Disposition Clinical Impression: Acute urinary retention, Hypertension, poor control Disposition: HOME SELF-CARE Condition: Fair Instructions (If sedation given, give patient instructions): Urinary Retention in Men (ED), Romero Catheter Placement and Care (ED), Hypertension (ED) Additional Instructions: Follow-up with your regular physician as directed. Return to the ER immediately if any symptoms worsen, new symptoms arise, or any other problems develop. Call in the morning and set up a follow-up appointment with the urologist, Dr. Manzano Contact your regular physician as well to discuss possible side effects to medications as well as your blood pressure which was elevated here today. Is patient prescribed a controlled substance at d/c from ED?: No Referrals: Juan Manzano MD [STAFF PHYSICIAN] - 1-2 days Segundo Anton MD [Primary Care Provider] - 08/29/21 Time of Disposition: 03:55
[2021-08-29 04:07] LABS: Albumin 4.3 g/dL (3.5-5.0); Calcium 9.7 mg/dL (8.4-10.2); Potassium 4.3 mmol/L (3.5-5.1); Total Protein 7.1 g/dL (6.3-8.2)
== END 2021-08-29 04:27 | disposition home or self-care (01) ==
LOC: EC 02:50
DX: R33.9 Retention of urine, unspecified (principal); I10 Essential (primary) hypertension; I25.10 Atherosclerotic heart disease of native coronary artery without angina pectoris; Z79.1 Long term (current) use of non-steroidal anti-inflammatories (NSAID); E78.5 Hyperlipidemia, unspecified; E11.9 Type 2 diabetes mellitus without complications
CPT/HCPCS: 36415; 74018; 80053; 81001; 85025

== ENCOUNTER 2022-09-17 06:39 | Emergency (ER) | payer MEDICARE, OTHER ==
--- NOTE | 2022-09-17 07:08 | ED ---
Abdominal Pain HPI - General Chief Complaint: Abdominal Pain Stated Complaint: ABD PAIN Time Seen by Provider: 09/17/22 06:50 Source: patient, RN notes reviewed Mode of arrival: ambulatory Limitations: no limitations - History of Present Illness Initial Comments: This is a 76-year-old male who presents to the emergency department for problems urinating. States that he has not been able to produce much urine over the course of 12 hours aside from a few small drops. He has subsequently had difficulty producing more than a few pieces of stool. He had a similar problem a little over a year ago requiring Gallagher catheter placement and symptoms feels very similar. He followed up with urology afterwards but is unsure if he was told why this happened. Unsure if he has any prostate problems. He has developed a lot of pain and distention in his lower and mid abdomen. Patient is having difficulty sitting still as a result of the discomfort. Denies any fevers, chills, sore throat, cough, dyspnea, chest pain, palpitations, nausea, vomiting, diarrhea, back pain, or headaches. MD Complaint: abdominal pain - Related Data Home Medications Medication Instructions Recorded Confirmed ALPRAZolam [Xanax] 0.5 mg PO TID PRN 12/12/17 12/12/17 Albuterol Inhaler [Ventolin Hfa 1 puff INHALATION RT-Q6H PRN 12/12/17 12/12/17 Inhaler] Aspirin EC [Ecotrin Low Dose] 162 mg PO DAILY 12/12/17 12/12/17 Atorvastatin [Lipitor] 80 mg PO HS 12/12/17 12/12/17 Budesonide/Formoterol Fumarate 2 puff INHALATION RT-BID 12/12/17 12/12/17 [Symbicort 80-4.5 Mcg Inhaler] Clopidogrel Bisulfate [Plavix] 75 mg PO DAILY 12/12/17 12/12/17 Famotidine 40 mg PO BID 12/12/17 12/12/17 Fluticasone Nasal [place] [Flonase 1 spray EA NOSTRIL Q12H 12/12/17 12/12/17 Nasal [place]] Loratadine [Claritin] 10 mg PO DAILY PRN 12/12/17 12/12/17 Metoprolol Tartrate [Lopressor] 100 mg PO BID 12/12/17 12/12/17 Montelukast [Singulair] 10 mg PO DAILY 12/12/17 12/12/17 Sildenafil Citrate 100 mg PO DIRECTED PRN 12/12/17 12/12/17 allopurinoL [Zyloprim] 100 mg PO DAILY 12/12/17 12/12/17 lisinopriL [Zestril] 5 mg PO BID 12/12/17 12/12/17 metFORMIN HCL [Glucophage] 1,000 mg PO BID 12/12/17 12/12/17 Previous Rx's Medication Instructions Recorded Hydrocodone/Acetaminophen [[place] 1 - 2 tab PO Q4-6H PRN 7 Days #60 12/13/17 7.5-325] tab Allergies Allergy/AdvReac Type Severity Reaction Status Date / Time No Known Allergies Allergy Verified 09/17/22 06:45 Review of Systems ROS Statement: Those systems with pertinent positive or pertinent negative responses have been documented in the HPI. ROS Other: All systems not noted in ROS Statement are negative. Past Medical History Past Medical History: Coronary Artery Disease (CAD), Chest Pain / Angina, Diabetes Mellitus, Hyperlipidemia, Hypertension Additional Past Medical History / Comment(s): agent orange History of Any Multi-Drug Resistant Organisms: None Reported Past Surgical History: Coronary Bypass/CABG Past Psychological History: No Psychological Hx Reported Smoking Status: Never smoker Past Alcohol Use History: None Reported Past Drug Use History: None Reported General Exam Limitations: no limitations General appearance: alert, in distress Head exam: Present: atraumatic, normocephalic, normal inspection Respiratory exam: Present: normal lung sounds bilaterally. Absent: respiratory distress, wheezes, rales, rhonchi, stridor Cardiovascular Exam: Present: regular rate, normal rhythm, normal heart sounds. Absent: systolic murmur, diastolic murmur, rubs, gallop, clicks GI/Abdominal exam: Present: soft, distended, tenderness (diffuse), normal bowel sounds Neurological exam: Present: alert, oriented X3, CN II-XII intact Psychiatric exam: Present: normal affect, normal mood Skin exam: Present: warm, dry, intact, normal color. Absent: rash Course Vital Signs 09/17/22 09/17/22 06:45 10:20 Temperature 97.7 F 98.3 F Pulse Rate 69 80 Respiratory 18 17 Rate Blood Pressure 186/82 124/74 O2 Sat by Pulse 97 93 L Oximetry Medical Decision Making - Medical Decision Making This is a 76-year-old male who presents to the emergency department for urinary retention. Was pt. sent in by a medical professional or institution? @ -No Did you speak to anyone other than the patient for history? @ -No Did you review nursing and triage notes? @ -Yes, and I agree, it is accurate with regards to the patient's symptoms. Were old charts reviewed? @ -No Differential Diagnosis? @ -Differential Urinary Retention: UTI, ureteral calculus, BPH, this is not meant to be an all-inclusive list. EKG interpreted by me (3pts min.)? @ -Not obtained X-rays interpreted by me (1pt min.)? @ -Not obtained CT interpreted by me (1pt min.)? @ -Not obtained U/S interpreted by me (1pt. min.)? @ -Not interpreted by me What testing was considered but not performed? (CT, X-rays, U/S, labs)? Why? @ -None What meds were considered but not given? Why? @ -None Did you discuss the management of the patient with other professionals? @ -No Did you reconcile home meds? @ -No Was smoking cessation discussed for >3mins.? @ -No Was critical care preformed (if so, how long)? @ -No Were there social determinants of health that impacted care today? How? (Homelessness, low income, unemployed, alcoholism, drug addiction, transp ortation, low edu. Level, literacy, decrease access to med. care, shelter, rehab)? @ -No Was there de-escalation of care discussed even if they declined? (Discuss DNR or withdrawal of care, Hospice)? @ -No What co-morbidities impacted this encounter? (DM, HTN, Smoking, COPD, CAD, Cancer, CVA, Hep., AIDS, mental health diagnosis, sleep apnea, morbid obesity)? @ -DM Was patient admitted / discharged? @ -Discharged. Bladder scan revealed 250 mL of urine. A gallagher catheter was subsequently placed. Urinalysis has a large amount of blood, however there was otherwise no sign of infection. Lab work was nonactionable. Ultrasound of the kidneys and bladder obtained. No acute findings were identified. His prostate does appear enlarged per the ultrasound reading. Patient ended up putting out 1400 mL of urine after Gallagher catheter placement with significant relief in symptoms. Patient discharged home with Gallagher catheter in place and instructed to follow-up with urology. Undiagnosed new problem with uncertain prognosis? @ -None Drug Therapy requiring intensive monitoring for toxicity (Heparin, Nitro, Insul in, Cardizem)? @ -None Were any procedures done? @ -None Diagnosis/symptom? @ -Urinary retention Acute, or Chronic, or Acute on Chronic? @ -Acute Uncomplicated (without systemic symptoms) or Complicated (systemic symptoms)? @ -Uncomplicated Side effects of treatment? @ -None Exacerbation, Progression, or Severe Exacerbation] @ -Not applicable Poses a threat to life or bodily function? @ -No Return precautions reviewed in depth, the patient is instructed to return to the emergency department with any new, worsening, or concerning symptoms. Patient verbalized understanding. This case was discussed in detail with the attending ED physician, Dr. Fitzgerald. Presentation, findings, and treatment plan discussed in detail as well. - Lab Data Result diagrams: 09/17/22 07:45 09/17/22 08:45 Lab Results 09/17/22 09/17/22 09/17/22 Range/Units 06:56 07:45 08:45 WBC 11.2 H (3.8-10.6) k/uL RBC 5.09 (4.30-5.90) m/uL Hgb 16.0 (13.0-17.5) gm/dL Hct 49.3 (39.0-53.0) % MCV 96.8 (80.0-100.0) fL MCH 31.5 (25.0-35.0) pg MCHC 32.5 (31.0-37.0) g/dL RDW 13.5 (11.5-15.5) % Plt Count 288 (150-450) k/uL MPV 7.7 Neutrophils % 77 % Lymphocytes % 10 % Monocytes % 7 % Eosinophils % 4 % Basophils % 1 % Neutrophils # 8.6 H (1.3-7.7) k/uL Lymphocytes # 1.1 (1.0-4.8) k/uL Monocytes # 0.8 (0-1.0) k/uL Eosinophils # 0.4 (0-0.7) k/uL Basophils # 0.1 (0-0.2) k/uL Sodium 138 (137-145) mmol/L Potassium 4.5 (3.5-5.1) mmol/L Chloride 107 (98-107) mmol/L Carbon Dioxide 22 (22-30) mmol/L Anion Gap 9 mmol/L BUN 17 (9-20) mg/dL Creatinine 0.84 (0.66-1.25) mg/dL Est GFR (CKD-EPI)AfAm >90 (>60 ml/min/1.73 sqM) Est GFR (CKD-EPI)NonAf 86 (>60 ml/min/1.73 sqM) Glucose 221 H (74-99) mg/dL Calcium 9.2 (8.4-10.2) mg/dL Total Bilirubin 0.9 (0.2-1.3) mg/dL AST 22 (17-59) U/L ALT 21 (4-49) U/L Alkaline Phosphatase 74 (38-126) U/L Total Protein 6.5 (6.3-8.2) g/dL Albumin 3.9 (3.5-5.0) g/dL Urine Color Yellow Urine Appearance Clear (Clear) Urine pH 5.5 (5.0-8.0) Ur Specific [place] 1.025 (1.001-1.035) Urine Protein Negative (Negative) Urine Glucose (UA) 4+ H (Negative) Urine Ketones Negative (Negative) Urine Blood Large H (Negative) Urine Nitrite Negative (Negative) Urine Bilirubin Negative (Negative) Urine Urobilinogen <2.0 (<2.0) mg/dL Ur Leukocyte Esterase Trace H (Negative) Urine RBC 98 H (0-5) /hpf Urine WBC 6 H (0-5) /hpf Ur Squamous Epith Cells <1 (0-4) /hpf - Radiology Data Radiology results: report reviewed, image reviewed Disposition Clinical Impression: Urinary retention Disposition: HOME SELF-CARE Instructions (If sedation given, give patient instructions): Urinary Retention in Men (ED), Gallagher Catheter Placement and Care (ED), How to Change a Catheter Drainage Bag (DC) Additional Instructions: Return to the emergency department with any new, worsening, or concerning symptoms. Contact urology as listed below for a follow-up appointment regarding the urinary retention. Is patient prescribed a controlled substance at d/c from ED?: No Referrals: [facility],Clinic [Primary Care Provider] - 1-2 days Juan Manzano MD [STAFF PHYSICIAN] - 1-2 days
[2022-09-17] MEDS ORDERED: MORPHINE SULFATE 2 MG/ML SYRINGE IVP STA (08:04)
[2022-09-17] MEDS ORDERED: KETOROLAC 15 MG/ML 1 ML VIAL IVP STA (08:04)
[2022-09-17 08:26] LABS: Appearance,Urine Clear (Clear); Bilirubin,Urine Negative (Negative); Blood,Urine Large (Negative); Color,Urine Yellow; Glucose,Urine (UA) 4+ (Negative); Ketones,Urine Negative (Negative); Leukocyte Esterase,Urine Trace (Negative); Nitrite,Urine Negative (Negative); PH, Urine 5.5 (5.0-8.0); Protein,Urine Negative (Negative); RBC,Urine 98 /hpf (0-5); Specific Gravity,Urine 1.025 (1.001-1.035); Squamous Epithelial Cell,Urine <1 /hpf (0-4); Urobilinogen,Urine <2.0 mg/dL (<2.0); WBC,Urine 6 /hpf (0-5)
[2022-09-17 08:35] LABS: Basophils # (A) 0.1 k/uL (0-0.2); Basophils % (A) 1 %; Eosinophils # (A) 0.4 k/uL (0-0.7); Eosinophils % (A) 4 %; HCT 49.3 % (39.0-53.0); Lymphocytes # (A) 1.1 k/uL (1.0-4.8); Lymphocytes % (A) 10 %; MCH 31.5 pg (25.0-35.0); MCHC 32.5 g/dL (31.0-37.0); MCV 96.8 fL (80.0-100.0); Mean Platelet Volume 7.7; Monocytes # (A) 0.8 k/uL (0-1.0); Monocytes % (A) 7 %; Neutrophils # (A) 8.6 k/uL (1.3-7.7); Neutrophils % (A) 77 %; Platelet Count 288 k/uL (150-450); RBC 5.09 m/uL (4.30-5.90); RDW 13.5 % (11.5-15.5); WBC 11.2 k/uL (3.8-10.6)
[2022-09-17 09:08] LABS: ALT 21 U/L (4-49); AST 22 U/L (17-59); African American GFR (CKD) >90 (>60 ml/min/1.73 sqM); Albumin 3.9 g/dL (3.5-5.0); Alkaline Phosphatase 74 U/L (38-126); Anion Gap 9 mmol/L; Blood Urea Nitrogen 17 mg/dL (9-20); Calcium 9.2 mg/dL (8.4-10.2); Carbon Dioxide 22 mmol/L (22-30); Chloride 107 mmol/L (98-107); Glucose 221 mg/dL (74-99); Non-African American GFR(CKD) 86 (>60 ml/min/1.73 sqM); Potassium 4.5 mmol/L (3.5-5.1); Sodium 138 mmol/L (137-145); Total Bilirubin 0.9 mg/dL (0.2-1.3); Total Protein 6.5 g/dL (6.3-8.2)
--- NOTE | 2022-09-17 09:47 | US ---
EXAMINATION TYPE: US kidneys/renal and bladder DATE OF EXAM: 09/17/2022 COMPARISON: NONE CLINICAL INDICATION: Male, 76 years old with history of Urinary retention; urinary retention, history of kidney stones EXAM MEASUREMENTS: Right Kidney: 11.9 x 4.5 x 4.3 cm Left Kidney: 11.9 x 5.6 x 4.1 cm Right Kidney: cystic area = 1.8 x 2.0 x 1.8cm. possible stones = 0.8cm Left Kidney: possible stones = 0.7cm Bladder: Romero Catheter *Prostate appears enlarged = 5.2cm IMPRESSION: 1. Bilateral nephrolithiasis. No evidence hydronephrosis. 2. Simple cyst right kidney.
[2022-09-17 10:25] VITALS: BP 124/74; PULSE 80; RESP 17; TEMP 98.3
== END 2022-09-17 10:28 | disposition home or self-care (01) ==
LOC: EC 06:39
DX: N20.0 Calculus of kidney (principal); N28.1 Cyst of kidney, acquired; I10 Essential (primary) hypertension; E11.9 Type 2 diabetes mellitus without complications; E78.5 Hyperlipidemia, unspecified; I25.10 Atherosclerotic heart disease of native coronary artery without angina pectoris; Z79.82 Long term (current) use of aspirin; Z79.899 Other long term (current) drug therapy
CPT/HCPCS: 51798; 36415; 80053; 85025; 81001; 76770; 99284; 96374; 96375; 51702; J2270; J1885

== ENCOUNTER 2024-09-30 13:37 | Inpatient (IN) | payer OTHER, MEDICARE ==
[2024-09-30 14:23] LABS: Basophils # (A) 0.06 10*3/uL (0.00-0.10); Basophils % (A) 0.5 %; Eosinophils # (A) 0.02 10*3/uL (0.04-0.35); Eosinophils % (A) 0.2 %; HCT 45.2 % (39.6-50.0); HGB 15.7 g/dL (13.0-17.0); Lymphocytes # (A) 0.78 10*3/uL (0.90-5.00); Lymphocytes % (A) 6.3 %; MCH 32.4 pg (27.0-32.0); MCHC 34.7 g/dL (32.0-37.0); MCV 93.2 fL (80.0-97.0); Monocytes # (A) 1.02 10*3/uL (0.20-1.00); Monocytes % (A) 8.2 %; Neutrophils # (A) 10.45 10*3/uL (1.80-7.70); Neutrophils % (A) 84.5 %; Platelet Count 245 10*3/uL (140-440); RBC 4.85 10*6/uL (4.40-5.60); RDW 13.6 % (11.5-14.5); WBC 12.37 10*3/uL (4.50-10.00)
--- NOTE | 2024-09-30 14:25 | ED ---
Fall HPI - General Source: patient, EMS, RN notes reviewed Mode of arrival: EMS Limitations: physical limitation <Harinder Jarrell - Last Filed: 09/30/24 14:23> <Jasmeet Garcia - Last Filed: 09/30/24 21:46> - General Chief Complaint: Fall Stated Complaint: Fall Time Seen by Provider: 09/30/24 13:46 - History of Present Illness Initial Comments: 78-year-old male presents emergency department with chief complaint of a fall. Patient states that he was on the roof approximate 10 feet when he fell off yesterday around noon. Patient states that he has back pain he did strike his head he is on blood thinners per patient. Patient states that he was able to crawl back into his house has been laying on the ground. Patient states his pain is diffuse in his back, he has mild headache no significant neck pain he w as placed in a c-collar by EMS denies hip or pelvis pain (Harinder Jarrell) - Related Data Home Medications Medication Instructions Recorded Confirmed ALPRAZolam [Xanax] 0.5 mg PO TID PRN 12/12/17 09/30/24 Albuterol Inhaler [Ventolin Hfa 2 puff INHALATION RT-Q4H PRN 12/12/17 09/30/24 Inhaler] Atorvastatin [Lipitor] 80 mg PO HS 12/12/17 09/30/24 Clopidogrel Bisulfate [Plavix] 75 mg PO DAILY 12/12/17 09/30/24 Fluticasone Nasal [place] [Flonase 1 spray EA NOSTRIL Q12H 12/12/17 09/30/24 Nasal [place]] Loratadine [Claritin] 10 mg PO DAILY PRN 12/12/17 09/30/24 Metoprolol Tartrate [Lopressor] 100 mg PO BID 12/12/17 09/30/24 Montelukast [Singulair] 10 mg PO DAILY 12/12/17 09/30/24 lisinopriL [Zestril] 5 mg PO BID 12/12/17 09/30/24 metFORMIN HCL [Glucophage] 1,000 mg PO BID 12/12/17 09/30/24 Fluticasone Propion/Salmeterol 1 puff INHALATION RT-BID 09/30/24 09/30/24 [Fluticasone-Salmeterol 250-50] Nitroglycerin Sl Tabs [Nitrostat] 0.4 mg SUBLINGUAL Q5M PRN 09/30/24 09/30/24 Tamsulosin [Flomax] 0.4 mg PO BID 09/30/24 09/30/24 glipiZIDE [Glucotrol] 10 mg PO DAILY 09/30/24 09/30/24 Allergies Allergy/AdvReac Type Severity Reaction Status Date / Time No Known Allergies Allergy Verified 09/30/24 19:05 Review of Systems ROS Other: All systems not noted in ROS Statement are negative. <Harinder Jarrell - Last Filed: 09/30/24 14:23> ROS Other: All systems not noted in ROS Statement are negative. <Jasmeet Garcia - Last Filed: 09/30/24 21:46> ROS Statement: Those systems with pertinent positive or pertinent negative responses have been documented in the HPI. Past Medical History Past Medical History: Coronary Artery Disease (CAD), Chest Pain / Angina, Diabetes Mellitus, Hyperlipidemia, Hypertension Additional Past Medical History / Comment(s): agent orange History of Any Multi-Drug Resistant Organisms: None Reported Past Surgical History: Coronary Bypass/CABG Past Psychological History: No Psychological Hx Reported Smoking Status: Never smoker Past Alcohol Use History: None Reported Past Drug Use History: None Reported <Harinder Jarrell - Last Filed: 09/30/24 14:23> General Exam Limitations: no limitations General appearance: alert, in no apparent distress Head exam: Present: atraumatic, normocephalic, normal inspection Eye exam: Present: normal appearance, PERRL, EOMI. Absent: scleral icterus, conjunctival injection, periorbital swelling ENT exam: Present: normal exam, normal oropharynx, mucous membranes moist Neck exam: Present: normal inspection. Absent: tenderness, meningismus, full ROM (In c-collar), lymphadenopathy Respiratory exam: Present: normal lung sounds bilaterally. Absent: respiratory distress, wheezes, rales, rhonchi, stridor Cardiovascular Exam: Present: regular rate, normal rhythm, normal heart sounds. Absent: systolic murmur, diastolic murmur, rubs, gallop, clicks GI/Abdominal exam: Present: soft, normal bowel sounds. Absent: distended, tenderness, guarding, rebound, rigid Extremities exam: Present: full ROM. Absent: normal inspection (Abrasions of the lower extremity), tenderness Back exam: Present: normal inspection, tenderness, paraspinal tenderness, vertebral tenderness. Absent: full ROM Neurological exam: Present: alert, oriented X3, CN II-XII intact, reflexes normal. Absent: motor sensory deficit <Harinder Jarrell - Last Filed: 09/30/24 14:23> Course Vital Signs 09/30/24 09/30/24 09/30/24 13:42 15:15 16:58 Pulse Rate 101 H 90 79 Respiratory 17 16 19 Rate Blood Pressure 120/63 170/84 159/87 O2 Sat by Pulse 95 92 L 96 Oximetry 09/30/24 18:05 Pulse Rate 64 Respiratory 17 Rate Blood Pressure 178/98 O2 Sat by Pulse 95 Oximetry Medical Decision Making - EKG Data -: EKG Interpreted by Me <Harinder Jarrell - Last Filed: 09/30/24 14:23> - Lab Data Result diagrams: 09/30/24 14:10 09/30/24 14:10 <Jasmeet Garcia - Last Filed: 09/30/24 21:46> - Medical Decision Making Patient signed out to me pending results of imaging and labs. Briefly, patient fell over 24 hours ago. Hit his head. Is on blood thinners. Fell off a roof. Was able to crawl into his house and laid down and did not move because he was so sore. Primarily complaining of back pain. Brought in by EMS for further evaluation at this time. Previous provider evaluate the patient and started workup. Labs returned remarkable for a creatinine kinase of 2288. Patient started on IV fluid hydration. Patient did not meet criteria for trauma activation or code coag as the fall occurred [address] brain, C-spine, chest abdomen pelvis is interpreted by myself as negative for any obvious acute injury, including no obvious spine injury. No acute intracranial bleed. Cervical collar cleared. I discussed results with the patient. He will be admitted for fluid hydration for his rhabdomyolysis. Patient was in agreement this plan. I spoke with the admitting provider, Dr. Valero who accepted the admission. Diagnosis/symptom? @ -Fall, rhabdomyolysis, dehydration Acute, or Chronic, or Acute on Chronic? @ -Acute Uncomplicated (without systemic symptoms) or Complicated (systemic symptoms)? @ -Complicated Side effects of treatment? @ -None Exacerbation, Progression, or Severe Exacerbation] @ -No Poses a threat to life or bodily function? @ -Potentially, yes (Jasmeet Garcia) - Lab Data Lab Results 09/30/24 09/30/24 09/30/24 Range/Units 14:10 14:10 14:10 WBC 12.37 H (4.50-10.00) 10*3/uL RBC 4.85 (4.40-5.60) 10*6/uL Hgb 15.7 (13.0-17.0) g/dL Hct 45.2 (39.6-50.0) % MCV 93.2 (80.0-97.0) fL MCH 32.4 H (27.0-32.0) pg MCHC 34.7 (32.0-37.0) g/dL Plt Count 245 (140-440) 10*3/uL MPV 9.9 (9.5-12.2) fL Immature Gran % (Auto) 0.3 % Neutrophils % 84.5 % Lymphocytes % 6.3 % Monocytes % 8.2 % Eosinophils % 0.2 % Basophils % 0.5 % Immature Gran # 0.04 (0.00-0.04) 10*3/uL Neutrophils # 10.45 H (1.80-7.70) 10*3/uL Lymphocytes # 0.78 L (0.90-5.00) 10*3/uL Monocytes # 1.02 H (0.20-1.00) 10*3/uL Eosinophils # 0.02 L (0.04-0.35) 10*3/uL Basophils # 0.06 (0.00-0.10) 10*3/uL PT 11.8 (10.0-12.5) sec INR 1.1 (<1.2) APTT 21.9 L (22.0-30.0) sec Sodium 143 (137-145) mmol/L Potassium 4.0 (3.5-5.1) mmol/L Chloride 108 H (98-107) mmol/L Carbon Dioxide 20 L (22-30) mmol/L Anion Gap 15 mmol/L BUN 21 H (9-20) mg/dL Creatinine 0.85 (0.66-1.25) mg/dL Est GFR (CKD-EPI)AfAm >90 (>60 ml/min/1.73 sqM) Est GFR (CKD-EPI)NonAf 85 (>60 ml/min/1.73 sqM) Glucose 195 H (74-99) mg/dL Calcium 10.0 (8.4-10.2) mg/dL Magnesium 1.7 (1.6-2.3) mg/dL Total Bilirubin 2.3 H (0.2-1.3) mg/dL AST 51 (17-59) U/L ALT 25 (4-49) U/L Alkaline Phosphatase 107 (38-126) U/L Creatine Kinase 2288 H* (55-170) U/L Total Protein 7.2 (6.3-8.2) g/dL Albumin 4.5 (3.5-5.0) g/dL - EKG Data EKG Comments: EKG performed at 13: 51 sinus rhythm with a rate of 99 MD 165 QRS 98 QT/QTc 350/406 (Harinder Jarrell) Disposition <Harinder Jarrell - Last Filed: 09/30/24 14:23> Time of Disposition: 17:40 <Jasmeet Garcia - Last Filed: 09/30/24 21:46> Clinical Impression: Fall, Rhabdomyolysis, Dehydration Disposition: ADMITTED IP TO THIS HOSP Condition: Stable
[2024-09-30 14:34] LABS: ALT 25 U/L (4-49); AST 51 U/L (17-59); African American GFR (CKD) >90 (>60 ml/min/1.73 sqM); Albumin 4.5 g/dL (3.5-5.0); Alkaline Phosphatase 107 U/L (38-126); Anion Gap 15 mmol/L; Blood Urea Nitrogen 21 mg/dL (9-20); Calcium 10.0 mg/dL (8.4-10.2); Carbon Dioxide 20 mmol/L (22-30); Chloride 108 mmol/L (98-107); Glucose 195 mg/dL (74-99); Magnesium 1.7 mg/dL (1.6-2.3); Non-African American GFR(CKD) 85 (>60 ml/min/1.73 sqM); Potassium 4.0 mmol/L (3.5-5.1); Sodium 143 mmol/L (137-145); Total Protein 7.2 g/dL (6.3-8.2)
[2024-09-30 14:38] LABS: INR 1.1 (<1.2); Prothrombin Time 11.8 sec (10.0-12.5)
[2024-09-30 14:45] LABS: Partial Thromboplastin Time 21.9 sec (22.0-30.0)
[2024-09-30 15:14] LABS: Creatine Kinase 2288 U/L (55-170)
[2024-09-30] MEDS: HYDROmorphone 0.5 MG/0.5 ML SYRINGE IVP STA (15:27)
[2024-09-30] MEDS: SODIUM CHLORIDE 0.9% 1,000 ML IV ONE (15:29)
--- NOTE | 2024-09-30 16:28 | CT ---
EXAMINATION TYPE: CT brain saul wo con DATE OF EXAM: 09/30/2024 COMPARISON: 12/12/2017 CLINICAL INDICATION: Male, 78 years old with history of pain; PHH, Fall from roof over 24 hours ago, pt. hit head on thinners, no loc, back pain. TECHNIQUE: CT scan of the head and cervical spine are performed without contrast. CT DLP: 1540.[address] CTDI: mGy Automated exposure control for dose reduction was used. Findings: Head CT: Ventricles, basal cisterns and sulci over convexities are mildly to moderately enlarged consistent wi th mild to moderate age-appropriate atrophy. There is no mass effect or shift of midline structures. No abnormal density is seen throughout the brain parenchyma and there is no acute intra or extra-axia l hemorrhage. Posterior fossa including the brainstem, fourth ventricle and cerebellar pontine angles are grossly n ormal. The intraorbital contents appear normal and symmetric. There is complete opacification of the right a xilla sinus with inspissated dense material and there is marked mucosal thickening in the ethmoid sin uses. There is fluid in the mastoid air cells bilaterally, left greater than right. Calvarium is inta ct. CT cervical spine: Craniovertebral junction relationships and prevertebral soft tissues are normal. The cervical vertebral segments are normal in height and alignment and there is no fracture subluxati on. There is mild degenerative disease at C5-6 level where there is mild disc space narrowing and spondyl osis. There is mild degenerative change of facet joints throughout the cervical spine. There is mild degene ration of the uncovertebral joints at the C5-6 level. The bony cervical canal is widely patent and there is no bony encroachment of the neural foramina. The paraspinal soft tissues unremarkable. IMPRESSION: 1. Head CT: No acute bleed or mass effect. Mild to moderate age-appropriate senescent changes. 2. CT cervical spine: No acute trauma. Mild degenerative changes as described above. [facility], , 09/30/2024 4:25 PM
--- NOTE | 2024-09-30 16:34 | CT ---
EXAMINATION TYPE: CT ChestAbdPelvis w con DATE OF EXAM: 09/30/2024 COMPARISON: None CLINICAL INDICATION: Male, 78 years old with history of fall, back pain CT DLP: 1393.5 mGycm Automated exposure control for dose reduction was used. CONTRAST: CT scan of the chest, abdomen and pelvis is performed without Oral Contrast and with IV Contrast, pat ient injected with 100 ml mL of Isovue 300. FINDINGS: CT chest: There is no suspicious lung mass or nodule. There is no abnormal airspace/consolidative density or abnormal interstitial density. There is no pleural effusion, pleural thickening or pneumothorax. The great vessels and chest are normal there is no mediastinal, hilar or axillary adenopathy. No focal osseous lesions are seen. CT abdomen and pelvis: There is mild cholelithiasis.. There is no biliary ductal dilatation. There is no focal mass or organomegaly involving the liver, pancreas, spleen or adrenal glands.. There is no solid renal mass or hydronephrosis. There is no retroperitoneal adenopathy or hemorrhage in the caliber of the abdominal aorta is normal. The bowel loops are normal in caliber and there is no dilatation or obstruction. No inflammatory jarvis ges identified in the bowel wall and mesentery. There is no free intracranial air or fluid. There is no pelvic mass or adenopathy. There is marked prostatic hypertrophy. No focal osseous lesions are seen. There are fat-containing inguinal hernias, right greater than left . IMPRESSION: 1. No acute trauma within the chest, abdomen or pelvis. 2. Mild cholelithiasis. 3. Marked prostatic hypertrophy. 4. Bilateral fat-containing inguinal hernias. [facility], , 09/30/2024 4:31 PM
[2024-09-30] MEDS: SODIUM CHLORIDE 0.9% 500 ML 500 ML IV ONE (16:57)
[2024-09-30] MEDS ORDERED: ONDANSETRON 4 MG/2 ML VIAL IVP PRN (17:42)
[2024-09-30] MEDS ORDERED: ACETAMINOPHEN TAB 325 MG TAB PO PRN (17:42)
[2024-09-30] MEDS ORDERED: NALOXONE 0.4 MG/ML 1 ML VIAL IV PRN (17:42)
[2024-09-30] MEDS: SODIUM CHLORIDE 0.9% 1,000 ML IV SCH (18:09)
[2024-09-30] MEDS: HYDROmorphone 0.5 MG/0.5 ML SYRINGE IVP PRN (18:12)
[2024-09-30] MEDS ORDERED: ALBUTEROL NEBULIZED 2.5 MG/3 ML INHALATION PRN (19:18)
[2024-09-30] MEDS: metFORMIN 500 MG TAB PO SCH (20:12)
[2024-09-30] MEDS: BACITRACIN OINT 1 EACH PACKET TOPICAL ONE (20:12)
[2024-09-30] MEDS: TAMSULOSIN 0.4 MG CAP.ER.24H PO SCH (20:13)
[2024-09-30] MEDS: METOPROLOL TARTRATE 50 MG TAB PO SCH (20:13)
[2024-09-30] MEDS: ATORVASTATIN 80 MG TAB PO SCH (20:59)
[2024-09-30] MEDS: FLUTICASONE NASAL 50MCG/SPRAY 16GM BTL EA NOSTRIL SCH (21:12)
--- NOTE | 2024-09-30 21:38 | P.HPIM ---
History of Present Illness H&P Date: 09/30/24 Chief Complaint: Fall Patient is a 78 y/o M with MPHx of CAD, Angina, DM, HLD, HTN, Asthma, and agent orange exposure here for being unable to bear weight after a fall. He was cleaning the gutters when he fell around 10ft onto his back/buttock 2 days ago around noon. He was not able to bear weight after this and had to spend 6 hours crawling back home. Throughout the course of that night he regained the ability to walk and was able to walk to bed/bathroom that night. The next day he was unable to get out of bed and had to crawl out. It was at this time around 11:30am earlier today he decided to call the ambulance and go to the ER. He endorses new onset back/right shoulder pain since the fall. He has not urinated in 2 days but denies hematuria, dysuria. Endorses weakness and myalgia in the back region and R shoulder. Review of Systems Constitutional: Denies chills, Denies fever, Denies night sweats, Denies weight gain, Denies weight loss Ears, nose, mouth and throat: Reports as per HPI Cardiovascular: Reports as per HPI Respiratory: Reports as per HPI Gastrointestinal: Reports as per HPI Genitourinary: Reports as per HPI Musculoskeletal: Reports as per HPI Integumentary: Reports as per HPI Neurological: Reports weakness Psychiatric: Reports as per HPI Endocrine: Reports as per HPI Hematologic/Lymphatic: Reports as per HPI Allergic/Immunologic: Reports as per HPI Past Medical History Past Medical History: Coronary Artery Disease (CAD), Chest Pain / Angina, Diabetes Mellitus, Hyperlipidemia, Hypertension Additional Past Medical History / Comment(s): agent orange History of Any Multi-Drug Resistant Organisms: None Reported Past Surgical History: Coronary Bypass/CABG (8/9 years ago) Past Psychological History: No Psychological Hx Reported Smoking Status: Never smoker Past Alcohol Use History: None Reported Past Drug Use History: None Reported Medications and Allergies Home Medications Medication Instructions Recorded Confirmed Type ALPRAZolam [Xanax] 0.5 mg PO TID PRN 12/12/17 09/30/24 History Albuterol Inhaler [Ventolin Hfa 2 puff INHALATION RT-Q4H PRN 12/12/17 09/30/24 History Inhaler] Atorvastatin [Lipitor] 80 mg PO HS 12/12/17 09/30/24 History Clopidogrel Bisulfate [Plavix] 75 mg PO DAILY 12/12/17 09/30/24 History Fluticasone Nasal [place] [Flonase 1 spray EA NOSTRIL Q12H 12/12/17 09/30/24 History Nasal [place]] Loratadine [Claritin] 10 mg PO DAILY PRN 12/12/17 09/30/24 History Metoprolol Tartrate [Lopressor] 100 mg PO BID 12/12/17 09/30/24 History Montelukast [Singulair] 10 mg PO DAILY 12/12/17 09/30/24 History lisinopriL [Zestril] 5 mg PO BID 12/12/17 09/30/24 History metFORMIN HCL [Glucophage] 1,000 mg PO BID 12/12/17 09/30/24 History Fluticasone Propion/Salmeterol 1 puff INHALATION RT-BID 09/30/24 09/30/24 History [Fluticasone-Salmeterol 250-50] Nitroglycerin Sl Tabs [Nitrostat] 0.4 mg SUBLINGUAL Q5M PRN 09/30/24 09/30/24 History Tamsulosin [Flomax] 0.4 mg PO BID 09/30/24 09/30/24 History glipiZIDE [Glucotrol] 10 mg PO DAILY 09/30/24 09/30/24 History Allergies Allergy/AdvReac Type Severity Reaction Status Date / Time No Known Allergies Allergy Verified 09/30/24 19:05 Physical Exam Vitals: Vital Signs Pulse Resp BP Pulse Ox 09/30/24 18:05 64 17 178/98 95 09/30/24 16:58 79 19 159/87 96 09/30/24 15:15 90 16 170/84 92 L 09/30/24 13:42 101 H 17 120/63 95 Intake and Output 09/30/24 09/30/24 09/30/24 06:59 14:59 22:59 Other: Weight 84.822 kg - Constitutional General appearance: cooperative, no acute distress - EENT Eyes: EOMI, PERRLA ENT: NA/AT - Neck Neck: no normal ROM (Cannot turn head to the right all the way) - Respiratory Respiratory: bilateral: CTA - Cardiovascular Rhythm: regular Heart sounds: normal: S1, S2 Abnormal Heart Sounds: no systolic murmur, no diastolic murmur - Gastrointestinal General gastrointestinal: normal bowel sounds, soft - Psychiatric Psychiatric: A&O x's 3, appropriate affect, intact judgment & insight Results CBC & Chem 7: 09/30/24 14:10 09/30/24 14:10 Labs: Abnormal Lab Results - Last 24 Hours (Table) 09/30/24 09/30/24 09/30/24 Range/Units 14:10 14:10 14:10 WBC 12.37 H (4.50-10.00) 10*3/uL MCH 32.4 H (27.0-32.0) pg Neutrophils # 10.45 H (1.80-7.70) 10*3/uL Lymphocytes # 0.78 L (0.90-5.00) 10*3/uL Monocytes # 1.02 H (0.20-1.00) 10*3/uL Eosinophils # 0.02 L (0.04-0.35) 10*3/uL APTT 21.9 L (22.0-30.0) sec Chloride 108 H (98-107) mmol/L Carbon Dioxide 20 L (22-30) mmol/L BUN 21 H (9-20) mg/dL Glucose 195 H (74-99) mg/dL Total Bilirubin 2.3 H (0.2-1.3) mg/dL Creatine Kinase 2288 H* (55-170) U/L CT scan - abdomen: report reviewed, image reviewed CT Scan - head: report reviewed, image reviewed Assessment and Plan (1) Rhabdomyolysis Current Visit: Yes Status: Acute Priority: High Code(s): M62.82 - RHABDOMYOLYSIS SNOMED Code(s): 138200547 (2) Neck pain on right side Current Visit: Yes Status: Acute Code(s): M54.2 - CERVICALGIA SNOMED Code(s): 40756093 (3) Hyperlipidemia Current Visit: Yes Status: Chronic Priority: Medium Code(s): E78.5 - HYPERLIPIDEMIA, UNSPECIFIED SNOMED Code(s): 27764752 (4) Diabetes Current Visit: Yes Status: Chronic Priority: Medium Code(s): E11.9 - TYPE 2 DIABETES MELLITUS WITHOUT COMPLICATIONS SNOMED Code(s): 72212356 Plan: #Suspected Rhabdomyolysis Patient has elevated CK (2288) in the setting of a fall and extended period of immobilization with no urine production for 2 days is suspicious for mild rhabdomyolysis. CT ABD and Head CT has ruled out any acute processes Plan: -Continue 150ml/hr normal saline -Serial CK measurements #Right Sided Neck Pain Patient endorses new onset right sided neck and mid back pain after the fall. Likely d/t how he landed and muscle soreness after injury Plan: -PT/OT to see/evaluate patient #Hyperlipidemia Chronic issue Plan: continue lipitor and atorvastatin #DM Chronic Plan: Continue Metformin and Glipizide Attestation : Patient seen and examined with biomedical scientist. Agree with above assessment and plan. 69-year-old male patient with a past medical history of coronary artery disease, [id number] type 2 diabetes mellitus, dyslipidemia and essential hypertension who presented after a mechanical fall. Patient has elevated creatinine kinase of around 2000. He has mild rhabdomyolysis due to extended period of immobilization. He does complain of muscle pain. No acute kidney injury. Will continue with aggressive IV fluid resuscitation with serial creatinine kinase measurements. Trauma imaging did not show any fracture or dislocation. Patient does complain of right-sided neck and mid back pain along with bilateral knee pain. Will continue with pain management and have physical therapy evaluate patient. Discontinue statin therapy for now . Will keep patient on low-dose insulin sliding scale for type 2 diabetes Time spent : 55 min Time with Patient: Greater than 30
[2024-10-01 01:05] LABS: Bacteria,Urine Occasional /hpf; Bilirubin,Urine Negative (Negative); Blood,Urine Moderate (Negative); Color,Urine Light Yellow; Glucose,Urine (UA) 1+ (Negative); Leukocyte Esterase,Urine Large (Negative); Mucus,Urine Many /hpf; Nitrite,Urine Positive (Negative); PH, Urine 5.5 (5.0-8.0); Protein,Urine 1+ (Negative); RBC,Urine 87 /hpf (0-5); Squamous Epithelial Cell,Urine 2 /hpf (0-4); Urobilinogen,Urine <2.0 mg/dL (<2.0); WBC,Urine 122 /hpf (0-5)
[2024-10-01 01:07] LABS: Specific Gravity,Urine 1.050 (1.001-1.035)
[2024-10-01 01:08] LABS: Ketones,Urine 2+ (Negative)
[2024-10-01] MEDS: ALPRAZolam 0.5 MG TAB PO PRN (01:40)
[2024-10-01] MEDS ORDERED: glipiZIDE 5 MG TAB PO SCH (07:30)
[2024-10-01 08:21] LABS: Glucose,Whole Blood 147 mg/dL (70-110)
[2024-10-01] MEDS: INSULIN LISPRO (HumaLOG) 100 UNIT/ML 10 mL VL SQ SCH (09:39)
[2024-10-01] MEDS: CLOPIDOGREL 75 MG TAB PO SCH (09:40)
[2024-10-01] MEDS: MONTELUKAST 10 MG TAB PO SCH (09:40)
[2024-10-01] MEDS: ENOXAPARIN 40 MG/0.4 ML SYRINGE SQ SCH (09:41)
[2024-10-01 09:57] LABS: Basophils # (A) 0.05 10*3/uL (0.00-0.10); Basophils % (A) 0.4 %; Eosinophils # (A) 0.02 10*3/uL (0.04-0.35); Eosinophils % (A) 0.1 %; HCT 45.8 % (39.6-50.0); HGB 15.3 g/dL (13.0-17.0); Lymphocytes # (A) 0.79 10*3/uL (0.90-5.00); Lymphocytes % (A) 5.8 %; MCH 31.8 pg (27.0-32.0); MCHC 33.4 g/dL (32.0-37.0); MCV 95.2 fL (80.0-97.0); Monocytes # (A) 1.15 10*3/uL (0.20-1.00); Monocytes % (A) 8.5 %; Neutrophils # (A) 11.48 10*3/uL (1.80-7.70); Neutrophils % (A) 84.7 %; Platelet Count 239 10*3/uL (140-440); RBC 4.81 10*6/uL (4.40-5.60); RDW 13.8 % (11.5-14.5); WBC 13.56 10*3/uL (4.50-10.00)
[2024-10-01 10:18] LABS: African American GFR (CKD) 74 (>60 ml/min/1.73 sqM); Anion Gap 14 mmol/L; Blood Urea Nitrogen 25 mg/dL (9-20); Calcium 9.2 mg/dL (8.4-10.2); Carbon Dioxide 17 mmol/L (22-30); Chloride 110 mmol/L (98-107); Glucose 154 mg/dL (74-99); Non-African American GFR(CKD) 64 (>60 ml/min/1.73 sqM); Potassium 4.3 mmol/L (3.5-5.1); Sodium 141 mmol/L (137-145)
[2024-10-01 12:21] LABS: Glucose,Whole Blood 187 mg/dL (70-110)
[2024-10-01] MEDS: LACTATED RINGERS 1,000 ML IV SCH (13:12)
--- NOTE | 2024-10-01 15:30 | P.PN ---
Subjective Progress Note Date: 10/01/24 Principal diagnosis: 78 y.o M with PMHx of CAD, Angina, DM, HLD, HTN, Asthma, and agent orange exposure here for being unable to bear weight after a mechanical fall, he is a/f suspected rhabdomyolysis secondary to extended immobility from his fall. Hospital course: Trauma imaging was unremarkable for fractures or dislocations, was found to have an elevated creatinine kinase >2000, no CHARLEY was noted. Started on aggressive IV fluid resuscitation with serial CK. Of note pt initially reported lower extremity muscle pain specifically, b/l knee pain. Also reported right-sided ne ck and mid back pain. Pt was started on a pain medication regimen and physical therapy evaluation was placed. Was started on low-dose insulin sliding scale for type 2 diabetes. Interval history: No acute events overnight. Hemodynamically stable and afebrile. Continues to endorses lower back pain, and bilateral lower extremity pain. Endorses that he urinated once earlier this morning. No other symptoms noted. Physical Exam: Vital signs reviewed. General: nontoxic, no distress, appears at stated age Head: atraumatic, normocephalic, symmetric Eyes: EOMI, anicteric sclera Mouth: no lip lesion, mucus membranes moist Resp: comfortable on room air, no use of accessory muscles Abdominal: soft, non-tender to palpation, no appreciable organomegaly Extremities: b/l knee abrasions, no gross muscle atrophy, no edema. Muscle strength 3/5 with b/l hip flexion. Cap refill < 2sec BLE Neuro: Alert, Oriented, CNII-XII grossly intact Psych: well appearing, appropriate affect Pertinent Labs: WBC 12.37 > 13.56 CK 2288 > 736 Cl 108 > 110 HCO3 20 > 17 BUN 21 > 25 Imaging: no new imaging Assessment and Plan: 78 y.o M with PMHx of CAD, Angina, DM, HLD, HTN, Asthma, and agent orange expo sure here for being unable to bear weight after a mechanical fall, he is a/f suspected rhabdomyolysis secondary to extended immobility from his fall. # Mild traumatic rhabdomyolysis #non-anion gap metabolic acidosis #Close diastolic leukocytosis, likely reactive - elevated CK in the setting of a fall and extended period of immobilization with minimal UOP for mild rhabdomyolysis, now with down trending CK 2288 > 736 - d/c serial CK measurements as now downtrending - c/w IVFs, switched to 150cc/hr LR from NS for metabolic acidosis likely secondary to NS - monitor I/Os #Right Sided Neck Pain - new onset right sided neck and mid back pain after the fall. Likely d/t mechanism of injury - follow up PT/OT eval/recs #Hyperlipidemia Chronic - continue to hold atorvastatin for now #Asymptomatic bacteriuria - Continue to monitor off antibiotics #DM Chronic - c/w low dose insulin sliding scale #HTN chronic - can resume home dose of lisinopril and metoprolol #BPH - Continue tamsulosin Fluids: 150 cc/hr LR Electrolytes: monitor chloride Nutrition: on heart healthy diet Ambulatory Status/Activity: fall precuations, follow-up PT/OT consult DVT ppx: lovenox Anticipated discharge place: pending clinical course Anticipated discharge time: pending clinical course I have seen and evaluated the patient today. Discussed with the resident and agree with the residents finding and plan as documented in the resident's note. Changes highlighted in blue font. Objective - Vital Signs Vital signs: Vital Signs Temp 97.2 F L 10/01/24 08:20 Pulse 70 10/01/24 10:50 Resp 16 10/01/24 10:50 BP 163/80 10/01/24 10:50 Pulse Ox 94 L 10/01/24 10:50 FiO2 Intake & Output 09/30/24 10/01/24 10/01/24 18:59 06:59 18:59 Output Total 75 Balance -75 Weight 84.822 kg Output: Urine 75 - Labs CBC & Chem 7: 10/01/24 08:39 10/01/24 08:39 Labs: Abnormal Lab Results - Last 24 Hours (Table) 09/30/24 09/30/24 09/30/24 Range/Units 14:10 14:10 14:10 WBC 12.37 H (4.50-10.00) 10*3/uL MCH 32.4 H (27.0-32.0) pg Immature Gran # (0.00-0.04) 10*3/uL Neutrophils # 10.45 H (1.80-7.70) 10*3/uL Lymphocytes # 0.78 L (0.90-5.00) 10*3/uL Monocytes # 1.02 H (0.20-1.00) 10*3/uL Eosinophils # 0.02 L (0.04-0.35) 10*3/uL APTT 21.9 L (22.0-30.0) sec Chloride 108 H (98-107) mmol/L Carbon Dioxide 20 L (22-30) mmol/L BUN 21 H (9-20) mg/dL Glucose 195 H (74-99) mg/dL POC Glucose (mg/dL) (70-110) mg/dL Total Bilirubin 2.3 H (0.2-1.3) mg/dL Creatine Kinase 2288 H* (55-170) U/L Ur Specific [place] (1.001-1.035) Urine Protein (Negative) Urine Glucose (UA) (Negative) Urine Ketones (Negative) Urine Blood (Negative) Ur Leukocyte Esterase (Negative) Urine RBC (0-5) /hpf Urine WBC (0-5) /hpf Urine Bacteria (None) /hpf Urine Mucus (None) /hpf 10/01/24 10/01/24 10/01/24 Range/Units 00:30 08:19 08:39 WBC (4.50-10.00) 10*3/uL MCH (27.0-32.0) pg Immature Gran # (0.00-0.04) 10*3/uL Neutrophils # (1.80-7.70) 10*3/uL Lymphocytes # (0.90-5.00) 10*3/uL Monocytes # (0.20-1.00) 10*3/uL Eosinophils # (0.04-0.35) 10*3/uL APTT (22.0-30.0) sec Chloride (98-107) mmol/L Carbon Dioxide (22-30) mmol/L BUN (9-20) mg/dL Glucose (74-99) mg/dL POC Glucose (mg/dL) 147 H (70-110) mg/dL Total Bilirubin (0.2-1.3) mg/dL Creatine Kinase 736 H (55-170) U/L Ur Specific [place] 1.050 H (1.001-1.035) Urine Protein 1+ H (Negative) Urine Glucose (UA) 1+ H (Negative) Urine Ketones 2+ H (Negative) Urine Blood Moderate H (Negative) Ur Leukocyte Esterase Large H (Negative) Urine RBC 87 H (0-5) /hpf Urine WBC 122 H (0-5) /hpf Urine Bacteria Occasional H (None) /hpf Urine Mucus Many H (None) /hpf 10/01/24 10/01/24 10/01/24 Range/Units 08:39 08:39 12:19 WBC 13.56 H (4.50-10.00) 10*3/uL MCH (27.0-32.0) pg Immature Gran # 0.07 H (0.00-0.04) 10*3/uL Neutrophils # 11.48 H (1.80-7.70) 10*3/uL Lymphocytes # 0.79 L (0.90-5.00) 10*3/uL Monocytes # 1.15 H (0.20-1.00) 10*3/uL Eosinophils # 0.02 L (0.04-0.35) 10*3/uL APTT (22.0-30.0) sec Chloride 110 H (98-107) mmol/L Carbon Dioxide 17 L (22-30) mmol/L BUN 25 H (9-20) mg/dL Glucose 154 H (74-99) mg/dL POC Glucose (mg/dL) 187 H (70-110) mg/dL Total Bilirubin (0.2-1.3) mg/dL Creatine Kinase (55-170) U/L Ur Specific [place] (1.001-1.035) Urine Protein (Negative) Urine Glucose (UA) (Negative) Urine Ketones (Negative) Urine Blood (Negative) Ur Leukocyte Esterase (Negative) Urine RBC (0-5) /hpf Urine WBC (0-5) /hpf Urine Bacteria (None) /hpf Urine Mucus (None) /hpf
[2024-10-01 19:01] LABS: Glucose,Whole Blood 161 mg/dL (70-110)
[2024-10-02] MEDS: hydrALAZINE HCL 20 MG/ML 1 ML VIAL IVP PRN (02:34)
[2024-10-02 05:11] LABS: Basophils # (A) 0.04 10*3/uL (0.00-0.10); Basophils % (A) 0.3 %; Eosinophils # (A) 0.05 10*3/uL (0.04-0.35); Eosinophils % (A) 0.3 %; HCT 43.3 % (39.6-50.0); HGB 14.7 g/dL (13.0-17.0); Lymphocytes # (A) 0.57 10*3/uL (0.90-5.00); Lymphocytes % (A) 3.6 %; MCH 32.2 pg (27.0-32.0); MCHC 33.9 g/dL (32.0-37.0); MCV 95.0 fL (80.0-97.0); Monocytes # (A) 0.89 10*3/uL (0.20-1.00); Monocytes % (A) 5.6 %; Neutrophils # (A) 14.04 10*3/uL (1.80-7.70); Neutrophils % (A) 89.1 %; Platelet Count 185 10*3/uL (140-440); RBC 4.56 10*6/uL (4.40-5.60); RDW 13.6 % (11.5-14.5); WBC 15.76 10*3/uL (4.50-10.00)
[2024-10-02 05:32] LABS: African American GFR (CKD) 39 (>60 ml/min/1.73 sqM); Anion Gap 17 mmol/L; Blood Urea Nitrogen 39 mg/dL (9-20); Calcium 9.3 mg/dL (8.4-10.2); Carbon Dioxide 16 mmol/L (22-30); Chloride 109 mmol/L (98-107); Glucose 178 mg/dL (74-99); Magnesium 1.7 mg/dL (1.6-2.3); Non-African American GFR(CKD) 34 (>60 ml/min/1.73 sqM); Potassium 3.8 mmol/L (3.5-5.1); Sodium 142 mmol/L (137-145)
[2024-10-02 06:36] LABS: Glucose,Whole Blood 187 mg/dL (70-110)
[2024-10-02 11:47] LABS: Glucose,Whole Blood 210 mg/dL (70-110)
--- NOTE | 2024-10-02 12:56 | US ---
EXAMINATION TYPE: US kidneys/renal and bladder DATE OF EXAM: 10/02/2024 COMPARISON: CLINICAL INDICATION: Male, 78 years old with history of michelle; Hx right renal cyst. Patient states he feels like he has to void but can't go. TECHNIQUE: Grayscale imaging of the bilateral kidneys and urinary bladder: FINDINGS: EXAM MEASUREMENTS: Right Kidney: 12.4 x 6.5 x 6.4 cm Left Kidney: 12.9 x 5.2 x 7.2 cm Right Kidney: Hydronephrosis. Lower medial hypoechoic anterior lesion = 2.4 x 1.9 x 2.0 cm Left Kidney: No prominent hydronephrosis or masses seen at time of scan Bladder: Very distended, anechoic Bilateral Jets not seen There is no evidence for hydronephrosis at this point in time. No nephrolithiasis is seen. No darrell s are identified. The urinary bladder is anechoic. IMPRESSION: Right hydronephrosis not definitively seen on prior CT. If there is concern for obstructive uropathy consider renal stone protocol CT. No hydronephrosis seen on 09/30/2024 CT. [facility], , 10/02/2024 12:53 PM
--- NOTE | 2024-10-02 14:50 | P.PN ---
Subjective Progress Note Date: 10/02/24 Principal diagnosis: 78 y.o M with PMHx of CAD, Angina, DM, HLD, HTN, Asthma, and agent orange exposure here for being unable to bear weight after a mechanical fall, he is a/f suspected rhabdomyolysis secondary to extended immobility from his fall. Hospital course: Trauma imaging was unremarkable for fractures or dislocations, was found to have an elevated creatinine kinase >2000, no CHARLEY was noted. Started on aggressive IV fluid resuscitation with serial CK. Of note pt initially reported lower extremity muscle pain specifically, b/l knee pain. Also reported right-sided ne ck and mid back pain. Pt was started on a pain medication regimen and physical therapy evaluation was placed. Was started on low-dose insulin sliding scale for type 2 diabetes. Found to have CHARLEY on hospital day 2. Interval history: Now in CHARLEY with elevated Cr 1.89. Otherwise hemodynamically stable and afebrile. Was straight cath overnight. Continues to endorse lower back pain, and bilateral lower extremity pain but much improved from admission. No other symptoms noted. Physical Exam: Vital signs reviewed. General: nontoxic, no distress, appears at stated age Head: atraumatic, normocephalic, symmetric Eyes: EOMI, anicteric sclera Mouth: no lip lesion, mucus membranes moist Resp: comfortable on room air, no use of accessory muscles Abdominal: soft, non-tender to palpation, no appreciable organomegaly Extremities: b/l knee abrasions, no gross muscle atrophy, no edema. Muscle stre ngth 3/5 with b/l hip flexion. Cap refill < 2sec BLE Neuro: Alert, Oriented, CNII-XII grossly intact Psych: well appearing, appropriate affect Pertinent Labs: WBC 12.37 > 13.56 > 15.76 CK 2288 > 736 Cl 108 > 110 > 109 HCO3 20 > 17 > 16 BUN 21 > 25 > 39 Cr 0.85 > 1.12 > 1.89 Imaging: no new imaging Assessment and Plan: 78 y.o M with PMHx of CAD, Angina, DM, HLD, HTN, Asthma, and agent orange exposure here for being unable to bear weight after a mechanical fall, he is a/f suspected rhabdomyolysis secondary to extended immobility from his fall. Acute #Mild traumatic rhabdomyolysis #anion gap metabolic acidosis #Leukocytosis, likely reactive #acute kidney injury, post secondary to urinary retention vs intrarenal secondary to contrast - elevated CK in the setting of a fall and extended period of immobilization with minimal UOP for mild rhabdomyolysis, now with down trending CK 2288 > 736 - c/w IVFs, switched to 150cc/hr LR from NS for metabolic acidosis - CHARLEY, mild traumatic rhabdomyolysis vs. post-renal from obstruction - monitor I/Os, urine output, serial bladder scans Q6H - renal US to r/o any intrarenal pathology resulting in CHARLEY - lovenox (renally excreted) switched to HSQ #Right Sided Neck Pain - new onset right sided neck and mid back pain after the fall. Likely d/t mechanism of injury, improving - follow up PT/OT eval/recs Chronic #Hyperlipidemia - continue to hold atorvastatin for now #DM - c/w low dose insulin sliding scale #HTN - c/w metoprolol home dose - hold lisinopril d/t CHARLEY #BPH - Continue tamsulosin Fluids: 150 cc/hr LR Electrolytes: monitor chloride, BUN/Cr Nutrition: on heart healthy diet Ambulatory Status/Activity: fall precuations, follow-up PT/OT consult DVT ppx: HSQ Anticipated discharge place: pending clinical course Anticipated discharge time: pending clinical course I have seen and evaluated the patient today. Discussed with the resident and agree with the residents finding and plan as documented in the resident's note. Changes highlighted in blue font. Objective - Vital Signs Vital signs: Vital Signs Temp 97.6 F 10/02/24 01:06 Pulse 83 10/02/24 01:06 Resp 18 10/01/24 21:10 BP 149/72 10/02/24 04:38 Pulse Ox 92 L 10/02/24 01:06 FiO2 Intake & Output 10/01/24 10/02/24 10/02/24 18:59 06:59 18:59 Output Total 75 885 Balance -75 -885 Weight 84.822 kg Output: Urine 75 885 Straight 425 Other: Voiding Method External Catheter - Labs CBC & Chem 7: 10/02/24 04:26 10/02/24 04:26 Labs: Abnormal Lab Results - Last 24 Hours (Table) 10/01/24 10/01/24 10/01/24 Range/Units 08:19 08:39 08:39 WBC 13.56 H (4.50-10.00) 10*3/uL MCH (27.0-32.0) pg Immature Gran # 0.07 H (0.00-0.04) 10*3/uL Neutrophils # 11.48 H (1.80-7.70) 10*3/uL Lymphocytes # 0.79 L (0.90-5.00) 10*3/uL Monocytes # 1.15 H (0.20-1.00) 10*3/uL Eosinophils # 0.02 L (0.04-0.35) 10*3/uL Chloride (98-107) mmol/L Carbon Dioxide (22-30) mmol/L BUN (9-20) mg/dL Creatinine (0.66-1.25) mg/dL Glucose (74-99) mg/dL POC Glucose (mg/dL) 147 H (70-110) mg/dL Creatine Kinase 736 H (55-170) U/L 10/01/24 10/01/24 10/01/24 Range/Units 08:39 12:19 18:59 WBC (4.50-10.00) 10*3/uL MCH (27.0-32.0) pg Immature Gran # (0.00-0.04) 10*3/uL Neutrophils # (1.80-7.70) 10*3/uL Lymphocytes # (0.90-5.00) 10*3/uL Monocytes # (0.20-1.00) 10*3/uL Eosinophils # (0.04-0.35) 10*3/uL Chloride 110 H (98-107) mmol/L Carbon Dioxide 17 L (22-30) mmol/L BUN 25 H (9-20) mg/dL Creatinine (0.66-1.25) mg/dL Glucose 154 H (74-99) mg/dL POC Glucose (mg/dL) 187 H 161 H (70-110) mg/dL Creatine Kinase (55-170) U/L 10/02/24 10/02/24 10/02/24 Range/Units 04:26 04:26 06:34 WBC 15.76 H (4.50-10.00) 10*3/uL MCH 32.2 H (27.0-32.0) pg Immature Gran # 0.17 H (0.00-0.04) 10*3/uL Neutrophils # 14.04 H (1.80-7.70) 10*3/uL Lymphocytes # 0.57 L (0.90-5.00) 10*3/uL Monocytes # (0.20-1.00) 10*3/uL Eosinophils # (0.04-0.35) 10*3/uL Chloride 109 H (98-107) mmol/L Carbon Dioxide 16 L (22-30) mmol/L BUN 39 H (9-20) mg/dL Creatinine 1.89 H (0.66-1.25) mg/dL Glucose 178 H (74-99) mg/dL POC Glucose (mg/dL) 187 H (70-110) mg/dL Creatine Kinase (55-170) U/L
[2024-10-02] MEDS: HEPARIN SODIUM,PORCINE 5,000 UNIT/ML 1 ML VIAL SQ SCH (16:34)
[2024-10-02 17:02] LABS: Glucose,Whole Blood 217 mg/dL (70-110)
[2024-10-03 04:32] LABS: Basophils # (A) 0.06 10*3/uL (0.00-0.10); Basophils % (A) 0.6 %; Eosinophils # (A) 0.40 10*3/uL (0.04-0.35); Eosinophils % (A) 3.8 %; HCT 38.7 % (39.6-50.0); HGB 13.0 g/dL (13.0-17.0); Lymphocytes # (A) 0.67 10*3/uL (0.90-5.00); Lymphocytes % (A) 6.4 %; MCH 31.7 pg (27.0-32.0); MCHC 33.6 g/dL (32.0-37.0); MCV 94.4 fL (80.0-97.0); Monocytes # (A) 0.89 10*3/uL (0.20-1.00); Monocytes % (A) 8.5 %; Neutrophils # (A) 8.33 10*3/uL (1.80-7.70); Neutrophils % (A) 80.0 %; Platelet Count 154 10*3/uL (140-440); RBC 4.10 10*6/uL (4.40-5.60); RDW 13.9 % (11.5-14.5); WBC 10.42 10*3/uL (4.50-10.00)
[2024-10-03 04:58] LABS: African American GFR (CKD) 74 (>60 ml/min/1.73 sqM); Anion Gap 11 mmol/L; Blood Urea Nitrogen 35 mg/dL (9-20); Calcium 9.0 mg/dL (8.4-10.2); Carbon Dioxide 20 mmol/L (22-30); Chloride 106 mmol/L (98-107); Glucose 151 mg/dL (74-99); Magnesium 1.9 mg/dL (1.6-2.3); Non-African American GFR(CKD) 64 (>60 ml/min/1.73 sqM); Potassium 3.4 mmol/L (3.5-5.1); Sodium 137 mmol/L (137-145)
[2024-10-03 06:04] LABS: Glucose,Whole Blood 148 mg/dL (70-110)
[2024-10-03] MEDS: POTASSIUM CHLORIDE ER 20 MEQ TAB.ER PO STA (09:19)
[2024-10-03 11:45] LABS: Glucose,Whole Blood 296 mg/dL (70-110)
--- NOTE | 2024-10-03 13:16 | P.PN ---
Subjective Progress Note Date: 10/03/24 Subjective: Patient seen and examined at bedside. No acute events overnight. Now has a Romero catheter. Claims that he is eating and drinking better Pertinent positives and negatives as discussed above, a complete review of systems was performed and all other systems are negative. Vitals Signs Reviewed. General: Nontoxic, no distress, appears at stated age, Romero catheter in place Derm: Warm, dry Head: Atraumatic, normocephalic, symmetric Eyes: EOMI, no lid lag, anicteric sclera Mouth: No lip lesion, mucus membranes moist Cardiovascular: S1S2 reg, no murmur Lungs: CTA bilateral, no rhonchi, no rales, no accessory muscle use Abdominal: Soft, nontender to palpation, no guarding, no appreciable organomegaly Ext: No gross muscle atrophy, no edema, no contractures Neuro: CN II-XI grossly intact, no focal neuro deficits, strength 3/5 bilateral lower extremities Psych: Alert, oriented, appropriate affect Data Reviewed Today: Pertinent Labs: WBC 10.42, potassium 3.4, creatinine 1.12, blood sugars range between 148-217, magnesium 1.9 Imaging: Renal ultrasound did show right hydronephrosis, no prior hydronephrosis seen on CT. Assessment and Plan: Active: CHARLEY likely postrenal, resolving Acute urinary retention status post Romero catheter BPH Right hydronephrosis Mild traumatic rhabdomyolysis, improving Mild metabolic acidosis, improving - Renal function improving with Romero catheter as well as lactated Ringer's 150 cc an hour - Continue fluids for now - No symptoms with regards to right hydronephrosis, continue to monitor renal function - Continue to hold lisinopril - Continue tamsulosin 0.4 twice daily Generalized weakness Debility -PT OT - Will likely need subacute rehab Hypokalemia - 40 mill equivalent oral potassium given today - Monitor BMP Type 2 diabetes - Continue sliding scale insulin, monitor for hypoglycemia Resolved: Leukocytosis Chronic: Hypertension CAD Dyslipidemia-holding statin Asthma/COPD, not in exacerbation DVT ppx: Subcu heparin Code status: Full code Anticipated discharge place: Pending clinical course Anticipated discharge time: Pending clinical course Objective - Vital Signs Vital signs: Vital Signs Temp 99.3 F 10/03/24 07:29 Pulse 69 10/03/24 07:29 Resp 18 10/03/24 07:29 BP 167/71 10/03/24 07:29 Pulse Ox 93 L 10/03/24 07:29 FiO2 Intake & Output 10/02/24 10/03/24 10/03/24 18:59 06:59 18:59 Intake Total 2300 Output Total 3950 2000 Balance -3950 300 Intake: Intake, IV Titration 1800 Amount Lactated Ringers 1,000 ml 1800 @ 150 mls/hr IV .[id number] [facility] Rx#:[id number] Oral 500 Output: Urine 3950 2000 Straight 1650 1000 Other: Voiding Method Urinal Indwelling Catheter Indwelling Catheter - Labs CBC & Chem 7: 10/03/24 04:05 10/03/24 04:05 Labs: Abnormal Lab Results - Last 24 Hours (Table) 10/02/24 10/03/24 10/03/24 Range/Units 17:00 04:05 04:05 WBC 10.42 H (4.50-10.00) 10*3/uL RBC 4.10 L (4.40-5.60) 10*6/uL Hct 38.7 L (39.6-50.0) % Immature Gran # 0.07 H (0.00-0.04) 10*3/uL Neutrophils # 8.33 H (1.80-7.70) 10*3/uL Lymphocytes # 0.67 L (0.90-5.00) 10*3/uL Eosinophils # 0.40 H (0.04-0.35) 10*3/uL Potassium 3.4 L (3.5-5.1) mmol/L Carbon Dioxide 20 L (22-30) mmol/L BUN 35 H (9-20) mg/dL Glucose 151 H (74-99) mg/dL POC Glucose (mg/dL) 217 H (70-110) mg/dL 10/03/24 10/03/24 Range/Units 06:01 11:41 WBC (4.50-10.00) 10*3/uL RBC (4.40-5.60) 10*6/uL Hct (39.6-50.0) % Immature Gran # (0.00-0.04) 10*3/uL Neutrophils # (1.80-7.70) 10*3/uL Lymphocytes # (0.90-5.00) 10*3/uL Eosinophils # (0.04-0.35) 10*3/uL Potassium (3.5-5.1) mmol/L Carbon Dioxide (22-30) mmol/L BUN (9-20) mg/dL Glucose (74-99) mg/dL POC Glucose (mg/dL) 148 H 296 H (70-110) mg/dL
[2024-10-03 16:40] LABS: Glucose,Whole Blood 189 mg/dL (70-110)
[2024-10-03] MEDS: SYMBICORT 80-4.5 MCG INHALER INHALATION SCH (19:07)
[2024-10-03 20:28] LABS: Glucose,Whole Blood 143 mg/dL (70-110)
[2024-10-04 06:36] LABS: Glucose,Whole Blood 208 mg/dL (70-110)
[2024-10-04 09:06] LABS: Anion Gap 12.00 mmol/L (4.00-12.00); BUN/Creat Ratio 17.44 Ratio (12.00-20.00); Blood Urea Nitrogen 15.7 mg/dL (9.0-27.0); Calcium 8.7 mg/dL (8.7-10.3); Carbon Dioxide 23.0 mmol/L (21.6-31.8); Chloride 103 mmol/L (96-109); Glucose 192 mg/dL (70-110); Magnesium 1.4 mg/dL (1.5-2.4); Potassium 3.5 mmol/L (3.5-5.5); Sodium 138 mmol/L (135-145)
[2024-10-04] MEDS: MAGNESIUM SULFATE-D5W PMX 1 GM in DEXTROSE/WATER 1 100ML.BAG IVPB SCH (10:44)
--- NOTE | 2024-10-04 10:47 | P.PN ---
Subjective Progress Note Date: 10/04/24 Principal diagnosis: 78 y.o M with PMHx of CAD, Angina, DM, HLD, HTN, Asthma, and agent orange exposure here for being unable to bear weight after a mechanical fall, he is a/f suspected rhabdomyolysis secondary to extended immobility from his fall. Hospital course: Trauma imaging was unremarkable for fractures or dislocations, was found to have an elevated creatinine kinase >2000, no CHARLEY was noted. Started on aggressive IV fluid resuscitation with serial CK. Of note pt initially reported lower extremity muscle pain specifically, b/l knee pain. Also reported right-sided ne ck and mid back pain. Pt was started on a pain medication regimen and physical therapy evaluation was placed. Was started on low-dose insulin sliding scale for type 2 diabetes. Found to have CHARLEY on hospital day 2, intrarenal vs post renal, likely post renal as pt has BPH and was retaining urine, was straight cath before eventual indwelling gallagher catheter placement. Renal US showed right hydronephrosis, however asymptomatic. Interval history: No acute events overnight. Hemodynamically stable and afebrile. Appropriate UOP with gallagher catheter in place. Continues to endorse lower back pain, and bilateral lower extremity pain but much improved from admission. No other symptoms noted. Physical Exam: Vital signs reviewed. General: nontoxic, no distress, appears at stated age Head: atraumatic, normocephalic, symmetric Eyes: EOMI, anicteric sclera Mouth: no lip lesion, mucus membranes moist Resp: comfortable on room air, no use of accessory muscles Abdominal: soft, non-tender to palpation, no appreciable organomegaly Extremities: b/l knee abrasions, no gross muscle atrophy, no edema. Muscle strength 3/5 with b/l hip flexion. Cap refill < 2sec BLE Neuro: Alert, Oriented, CNII-XII grossly intact Psych: well appearing, appropriate affect Pertinent Labs: Cl 109 > 106 > 103 HCO3 16 > 20 > 23 BUN 39 > 35 > 15.7 Cr 1.89 > 1.12 > 0.9 Imaging: no new imaging Assessment and Plan: 78 y.o M with PMHx of CAD, Angina, DM, HLD, HTN, Asthma, and agent orange exposure here for being unable to bear weight after a mechanical fall, he is a/f suspected rhabdomyolysis secondary to extended immobility from his fall. Active: #CHARLEY likely postrenal, resolved #Acute urinary retention s/p Gallagher catheter #BPH #Right hydronephrosis #Mild traumatic rhabdomyolysis, improving #Mild metabolic acidosis, resolved - Renal function improving with Gallagher catheter as well as lactated Ringer's 150 cc an hour - D/C gallagher and fluids is having adequate PO intake - No symptoms with regards to right hydronephrosis, continue to monitor renal function - can resume lisinopril as CHARLEY has resolved - c/w tamsulosin 0.4 twice daily #Generalized weakness #Debility - PT/OT eval - OOBTC/ambulate - Will likely need subacute rehab #Hypokalemia, resolved #Hypomagenesium - supplement with 2mg - Monitor BMP #Type 2 diabetes - Continue sliding scale insulin, monitor for hypoglycemia Resolved: #Leukocytosis Chronic: #Hypertension -resume home lisinopril #CAD #Dyslipidemia-resume home statin #Asthma/COPD, not in exacerbation DVT ppx: HSQ Code status: Full code Anticipated discharge place: Pending clinical course Anticipated discharge time: Pending clinical course Chelsie Correa MD PGY1 FM I have seen and evaluated the patient today. Discussed with the resident and agree with the residents finding and plan as documented in the resident's note. Changes highlighted in blue font. Objective - Vital Signs Vital signs: Vital Signs Temp 99.4 F 10/04/24 00:55 Pulse 79 10/04/24 00:55 Resp 17 10/04/24 00:55 BP 155/63 10/04/24 00:55 Pulse Ox 94 L 10/04/24 00:55 FiO2 Intake & Output 10/03/24 10/04/24 10/04/24 18:59 06:59 18:59 Output Total 1500 1601 Balance -1500 -1601 Output: Urine 1500 1600 Stool 1 Other: Voiding Method Indwelling Catheter Indwelling Catheter # Voids 1 - Labs CBC & Chem 7: 10/03/24 04:05 10/04/24 05:55 Labs: Abnormal Lab Results - Last 24 Hours (Table) 10/03/24 10/03/24 10/03/24 Range/Units 11:41 16:38 20:27 POC Glucose (mg/dL) 296 H 189 H 143 H (70-110) mg/dL 10/04/24 Range/Units 06:34 POC Glucose (mg/dL) 208 H (70-110) mg/dL
[2024-10-04 12:01] LABS: Glucose,Whole Blood 220 mg/dL (70-110)
[2024-10-04 16:59] LABS: Glucose,Whole Blood 205 mg/dL (70-110)
[2024-10-04] MEDS ORDERED: ZINC OXIDE PASTE (Z-GUARD) 1 APPLIC TOPICAL PRN (19:22)
[2024-10-04 20:15] LABS: Glucose,Whole Blood 213 mg/dL (70-110)
[2024-10-04] MEDS ORDERED: HEPARIN SODIUM 1,000 UN/ML (10ML VL) IV PRN (22:24)
--- NOTE | 2024-10-04 22:27 | P.EN ---
new onset afib with RVR asympotmatic transfer to step down unit initiate cardizem bolus / drip, titrate to heart rate<110 heparin gtt dosing by [facility] cardio consult check echo , TSH reflex F t4
[2024-10-04] MEDS: HEPARIN SOD,PORK IN 0.45% NACL 25,000 UNIT in 0.45% NACL 1 250ML.BAG IV SCH (23:11)
[2024-10-04] MEDS: HEPARIN SODIUM 1,000 UN/ML (10ML VL) IV ONE (23:14)
[2024-10-05 00:01] LABS: INR 1.1 (<1.2); Partial Thromboplastin Time 23.1 sec (22.0-30.0); Prothrombin Time 11.6 sec (10.0-12.5)
[2024-10-05 00:50] LABS: Basophils # (A) 0.07 10*3/uL (0.00-0.10); Basophils % (A) 0.6 %; Eosinophils # (A) 0.28 10*3/uL (0.04-0.35); Eosinophils % (A) 2.5 %; HCT 44.0 % (39.6-50.0); HGB 15.0 g/dL (13.0-17.0); Lymphocytes # (A) 0.70 10*3/uL (0.90-5.00); Lymphocytes % (A) 6.2 %; MCH 31.7 pg (27.0-32.0); MCHC 34.1 g/dL (32.0-37.0); MCV 93.0 fL (80.0-97.0); Monocytes # (A) 0.96 10*3/uL (0.20-1.00); Monocytes % (A) 8.5 %; Neutrophils # (A) 9.26 10*3/uL (1.80-7.70); Neutrophils % (A) 81.6 %; Platelet Count 205 10*3/uL (140-440); RBC 4.73 10*6/uL (4.40-5.60); RDW 13.6 % (11.5-14.5); WBC 11.34 10*3/uL (4.50-10.00)
[2024-10-05 05:58] LABS: Glucose,Whole Blood 219 mg/dL (70-110)
[2024-10-05 08:06] LABS: African American GFR (CKD) >90 (>60 ml/min/1.73 sqM); Anion Gap 7 mmol/L; Blood Urea Nitrogen 18 mg/dL (9-20); Calcium 9.0 mg/dL (8.4-10.2); Carbon Dioxide 27 mmol/L (22-30); Chloride 108 mmol/L (98-107); Glucose 205 mg/dL (74-99); Magnesium 1.6 mg/dL (1.6-2.3); Non-African American GFR(CKD) 84 (>60 ml/min/1.73 sqM); Potassium 3.4 mmol/L (3.5-5.1); Sodium 142 mmol/L (137-145)
[2024-10-05] MEDS: APIXABAN 5 MG TAB PO SCH (09:55)
[2024-10-05] MEDS: HYDROcodone/APAP 5-325MG 1 EACH TAB PO ONE (09:55)
[2024-10-05] MEDS: POTASSIUM CHLORIDE ER 20 MEQ TAB.ER PO STA (09:56)
[2024-10-05] MEDS: DILTIAZEM 5 MG/ML 5 ML VIAL IVP STA (09:56)
[2024-10-05] MEDS: DILTIAZEM 125 MG in DEXTROSE 5% IN WATER 100 ML IV SCH (09:57)
[2024-10-05 10:01] LABS: NT-Pro-B-Type Natriuretic Pept 7450 pg/mL
[2024-10-05 10:47] LABS: Basophils # (A) 0.07 X 10*3/uL (0.00-0.10); Basophils % (A) 0.8 %; Eosinophils # (A) 0.31 X 10*3/uL (0.04-0.35); Eosinophils % (A) 3.7 %; HCT 40.1 % (39.6-50.0); HGB 13.4 g/dL (13.0-17.0); Immature Grans, Automated 0.40 %; Lymphocytes # (A) 0.89 X 10*3/uL (0.90-5.00); Lymphocytes % (A) 10.6 %; MCH 31.5 pg (27.0-32.0); MCHC 33.4 g/dL (32.0-37.0); MCV 94.4 FL (80.0-97.0); Monocytes # (A) 0.97 X 10*3/uL (0.20-1.00); Monocytes % (A) 11.5 %; NRBC Per 100 WBC 0 X 10*3/uL (0.00-0.01); Neutrophils # (A) 6.14 X 10*3/uL (1.80-7.70); Neutrophils % (A) 73.0 %; Platelet Count 198 X 10*3/uL (140-440); RBC 4.25 X 10*6/uL (4.40-5.60); RDW 13.7 % (11.5-14.5); WBC 8.41 X 10*3/uL (4.50-10.00)
[2024-10-05 11:44] LABS: Glucose,Whole Blood 161 mg/dL (70-110)
--- NOTE | 2024-10-05 12:41 | P.CRDCN ---
History of Present Illness Consult date: 10/05/24 History of present illness: HISTORY OF PRESENTING ILLNESS: 78-year-old with past medical history of CAD status post CABG, dyslipidemia diabetes hypertension asthma. Apparently patient was on a ladder clearing his roof gutters when he had a fall and could not get up with prolonged immobility with concerns of rhabdomyolysis. On admission his CPK was more than 2000, with mild evidence of CHARLEY urinary retention requiring Romero catheterization, mild right hydronephrosis. He was also having generalized weakness, debility and some electrolyte imbalance. Yesterday it was noted that patient was in atrial fibrillation which is a new diagnosis for him. For this cardiology was consulted. He denies having any active chest pain chest pressure shortness of breath. Denies any palpitation symptoms. He denies feeling sick before he had a mechanical fall. Admission ECG shows normal sinus rhythm Repeat ECG shows atrial fibrillation, rate controlled Telemetry shows atrial fibrillation Pertinent labs, TSH 3.5, NT-proBNP 7450, BUN 18, creatinine 0.8, magnesium 1.6 potassium 3.4. REVIEW OF SYSTEMS: 14 point review of system is negative except what is mentioned above in HPI. PHYSICAL EXAMINATION: Neck: Brisk carotid upstroke, no jugular venous distention. Lungs: Clear to auscultation. Heart: Irregular rate and rhythm, S1-S2, , no murmur or rub. Chest surgical sc ar is intact Abdomen: Soft nontender, positive bowel sounds. Extremities: No edema, intact distal pulses. Neuro: Alert, oritented, no focal deficits. Detailed neuro exam was not performed. ASSESSMENT: # Atrial fibrillation, rate controlled. New diagnosis 09/2024, [id number] # CAD status post CABG # Essential hypertension # Type 2 diabetes # Dyslipidemia # Admitted with mechanical fall, rhabdomyolysis, CHARLEY with urinary retention, generalized weakness PLAN: Replace electrolyte. Keep potassium at 4 magnesium at 2. Give 2 g of magnesium sulfate IV Start Eliquis 5 mg twice daily. Discontinue Plavix. Start aspirin 81 mg daily for history of CABG Continue metoprolol 100 twice daily, Discontinue Cardizem drip Obtain echocardiogram Obtain HbA1c and lipid panel Reed Morales MD, FACC, RPVI Thank you for allowing [facility] to participate in this patient's care. Feel free to reach out in case of any followup questions. Past Medical History Past Medical History: Coronary Artery Disease (CAD), Chest Pain / Angina, Diabe nicholas Mellitus, Hyperlipidemia, Hypertension Additional Past Medical History / Comment(s): agent orange History of Any Multi-Drug Resistant Organisms: None Reported Past Surgical History: Coronary Bypass/CABG Past Anesthesia/Blood Transfusion Reactions: No Reported Reaction Past Psychological History: No Psychological Hx Reported Smoking Status: Never smoker Past Alcohol Use History: None Reported Past Drug Use History: None Reported Medications and Allergies Home Medications Medication Instructions Recorded Confirmed Type ALPRAZolam [Xanax] 0.5 mg PO TID PRN 12/12/17 09/30/24 History Albuterol Inhaler [Ventolin Hfa 2 puff INHALATION RT-Q4H PRN 12/12/17 09/30/24 History Inhaler] Atorvastatin [Lipitor] 80 mg PO HS 12/12/17 09/30/24 History Clopidogrel Bisulfate [Plavix] 75 mg PO DAILY 12/12/17 09/30/24 History Fluticasone Nasal [place] [Flonase 1 spray EA NOSTRIL Q12H 12/12/17 09/30/24 History Nasal [place]] Loratadine [Claritin] 10 mg PO DAILY PRN 12/12/17 09/30/24 History Metoprolol Tartrate [Lopressor] 100 mg PO BID 12/12/17 09/30/24 History Montelukast [Singulair] 10 mg PO DAILY 12/12/17 09/30/24 History lisinopriL [Zestril] 5 mg PO BID 12/12/17 09/30/24 History metFORMIN HCL [Glucophage] 1,000 mg PO BID 12/12/17 09/30/24 History Fluticasone Propion/Salmeterol 1 puff INHALATION RT-BID 09/30/24 09/30/24 History [Fluticasone-Salmeterol 250-50] Nitroglycerin Sl Tabs [Nitrostat] 0.4 mg SUBLINGUAL Q5M PRN 09/30/24 09/30/24 History Tamsulosin [Flomax] 0.4 mg PO BID 09/30/24 09/30/24 History glipiZIDE [Glucotrol] 10 mg PO DAILY 09/30/24 09/30/24 History Allergies Allergy/AdvReac Type Severity Reaction Status Date / Time No Known Allergies Allergy Verified 09/30/24 19:05 Physical Exam Vitals: Vital Signs Temp Pulse Pulse Resp BP Pulse Ox 10/05/24 12:27 97.8 F 96 16 154/93 99 10/05/24 09:50 91 18 146/85 95 10/05/24 04:00 98.2 F 82 18 172/82 92 L 10/05/24 00:00 98.8 F 98 18 175/93 94 L 10/04/24 20:20 18 10/04/24 19:40 98.8 F 114 H 16 147/84 93 L 10/04/24 13:59 98.2 F 54 L 18 138/76 92 L Intake and Output 10/04/24 10/05/24 10/05/24 22:59 06:59 14:59 Output Total 2175 650 Balance -2175 -650 Output: Urine 2175 650 Uretheral (Romero) 1325 Other: Voiding Method Bedside Commode Indwelling Catheter Urinal # Bowel Movements 2 Weight 77.5 kg Results 10/05/24 06:48 10/05/24 06:48 Coagulation 10/04/24 Range/Units 23:26 PT 11.6 (10.0-12.5) sec APTT 23.1 (22.0-30.0) sec CBC 10/04/24 10/05/24 Range/Units 23:26 06:48 WBC 11.34 H 8.41 (4.50-10.00) 10*3/uL RBC 4.73 4.25 L (4.40-5.60) 10*6/uL Hgb 15.0 13.4 (13.0-17.0) g/dL Hct 44.0 40.1 (39.6-50.0) % Plt Count 205 198 (140-440) 10*3/uL Comprehensive Metabolic Panel 10/05/24 Range/Units 06:48 Sodium 142 (137-145) mmol/L Potassium 3.4 L (3.5-5.1) mmol/L Chloride 108 H (98-107) mmol/L Carbon Dioxide 27 (22-30) mmol/L BUN 18 (9-20) mg/dL Creatinine 0.88 (0.66-1.25) mg/dL Glucose 205 H (74-99) mg/dL Calcium 9.0 (8.4-10.2) mg/dL Current Medications Generic Name Dose Route Start Last Admin Trade Name Freq PRN Reason Stop Dose Admin Acetaminophen 650 mg 09/30/24 17:42 Acetaminophen Tab 325 Mg Tab PO Q6HR PRN Mild Pain or Fever > 100.5 Albuterol Sulfate 2.5 mg 09/30/24 19:18 Albuterol Nebulized 2.5 Mg/3 Ml INHALATION RT-Q4H PRN Shortness Of Breath Alprazolam 0.5 mg 09/30/24 19:18 10/05/24 05:32 Alprazolam 0.5 Mg Tab PO 0.5 mg TID PRN Administration Anxiety Apixaban 5 mg 10/05/24 09:15 10/05/24 09:55 Apixaban 5 Mg Tab PO 5 mg BID FOUZIA Administration Protocol Budesonide/Formoterol Fumarate 2 puff 10/03/24 20:00 10/05/24 08:48 Symbicort 80-4.5 Mcg Inhaler INHALATION 2 puff RT-BID FOUZIA Administration Fluticasone Propionate 1 spray 09/30/24 20:00 10/05/24 09:56 Fluticasone Nasal 50mcg/[place] 16gm Btl EA NOSTRIL 1 spray Q12H FOUZIA Administration Hydromorphone HCl 0.5 mg 09/30/24 17:42 10/04/24 23:09 Hydromorphone 0.5 Mg/0.5 Ml Syringe IVP 0.5 mg Q3HR PRN Administration Moderate Pain (Scale 4 to 6) Insulin Human Lispro 0 unit 10/01/24 07:30 10/05/24 12:32 Insulin Lispro (Humalog) 100 Unit/Ml 10 Ml Vl SQ 2 unit AC-TID FOUZIA Administration Protocol Lidocaine 1 patch 10/06/24 09:00 Lidocaine 4% Patch TOPICAL DAILY FOUZIA Protocol Lisinopril 5 mg 10/04/24 09:30 10/05/24 09:56 Lisinopril 5 Mg Tab PO 5 mg DAILY FOUZIA Administration Metoprolol Tartrate 100 mg 09/30/24 21:00 10/05/24 09:54 Metoprolol Tartrate 50 Mg Tab PO 100 mg BID FOUZIA Administration Montelukast Sodium 10 mg 10/01/24 09:00 10/05/24 09:54 Montelukast 10 Mg Tab PO 10 mg DAILY FOUZIA Administration Naloxone HCl 0.2 mg 09/30/24 17:42 Naloxone 0.4 Mg/Ml 1 Ml Vial IV Q2M PRN Opioid Reversal Ondansetron HCl 4 mg 09/30/24 17:42 Ondansetron 4 Mg/2 Ml Vial IVP Q8HR PRN Nausea And Vomiting Petrolatum 1 applic 10/04/24 19:22 Zinc Oxide Paste (Z-Guard) 1 Applic TOPICAL BID PRN Wound Healing Protocol Tamsulosin HCl 0.4 mg 09/30/24 21:00 10/05/24 09:55 Tamsulosin 0.4 Mg Cap.Er.24h PO 0.4 mg BID FOUZIA Administration Intake and Output 10/04/24 10/05/24 10/05/24 22:59 06:59 14:59 Output Total 2175 650 Balance -2175 -650 Output: Urine 2175 650 Uretheral (Romero) 1325 Other: Voiding Method Bedside Commode Indwelling Catheter Urinal # Bowel Movements 2 Weight 77.5 kg 10/05/24 06:48 10/05/24 06:48
--- NOTE | 2024-10-05 14:12 | P.PN ---
Subjective Progress Note Date: 10/05/24 Principal diagnosis: 78 year old male with PMHx of CAD,angina, DM, hyperlipedmia, HTN, asthma, and agent orange exposure due to not being able to bear weight after mechanical fall, rhabdomyolysis (resolved) secondary to immobility and CHARLEY (resolved) due to rhabdomyolysis. Subject: H&P TEMPLATE 78 y.o M with PMHx of CAD, Angina, DM, hyperlipidemia, HTN, Asthma, and agent orange exposure here for due to not being unable to bear weight after a mechanical fall, rhabdomyolysis secondary to immobility due to fall, now resolved. Hospital course: Trauma imaging was unremarkable for fractures or dislocations, was found to have an elevated creatinine kinase >2000, no CHARLEY was noted. Started on aggressive IV fluid resuscitation with serial CK. Of note pt initially reported lower extremity muscle pain specifically, b/l knee pain. Also reported right-sided neck and mid back pain. pt. states he feels weak. Pt was started on a pain medication regimen and physical therapy evaluation was placed. Was started on low-dose insulin sliding scale for type 2 diabetes. Found to have CHARLEY on hospital day 2. Swithced to 150cc/hr LR from NS due to metablic acidosis, straight cath inititated then swithced to gallagher catheter. Renal US showed right hydronephrosis. Swithced from lovenox to HSQ. 10/04/2024 new onset a.fib with RVR asymptomatic [id number] = 5, cardizem bolus/drip to titrate to heart rate <110, switched to metoporlol after cardizem d/c. Patient seen and examined at bedside. Overnight events as mentioned above CT head/spine, no abnormalities. Abd/pelvis u/s; right hydronephrosis. Pertinent Labs: WBC 11.34 >8.41 Cl 103 > 108 HCO3 23 > 27 BUN 15.7 > 18 Cr 0.9 >0.88 TSH 3.5 NT-proBNP 7450 EKG independently interpreted, shows atrial fibrillation with RVR, now sinus rhythm Potassium 3.4, magnesium 1.6 Physical Exam: Vital signs reviewed. General: nontoxic, no distress, appears at stated age Head: atraumatic, normocephalic, symmetric Eyes: EOMI, anicteric sclera Mouth: no lip lesion, mucus membranes moist Resp: comfortable on room air, no use of accessory muscles Abdominal: soft, non-tender to palpation, no appreciable organomegaly Extremities: b/l knee abrasions (wrapped), no gross muscle atrophy, no edema. Muscle strength 3/5 with b/l hip flexion. Neuro: Alert, Oriented, CNII-XII grossly intact Psych: well appearing, appropriate affect Review of systems: Pertinent positives and negatives as discussed in HPI, a complete review of systems was performed and all other systems are negative. Physical examination: Vital signs reviewed General: non toxic, no distress, appears at stated age, normal weight Derm: no unusual rashes/lesions, warm Head: atraumatic, normocephalic, symmetric Eyes: EOMI, anicteric sclera, pupils equal round reactive to light ENT: Nose and ears atraumatic Neck: No cervical lymphadenopathy, trachea midline, supple Mouth: no lip lesion, mucus membranes moist Cardiovascular: S1S2 reg, no murmur, positive dorsalis pedis pulse bilateral, no edema Lungs: CTA bilateral, no rhonchi, no rales, no accessory muscle use Abdominal: soft, nontender to palpation, no guarding Ext: muscle strength 5 out of 5 in all 4 extremities grossly, no gross muscle atrophy Neuro: CN II-XI grossly intact, no gross focal neuro deficits Psych: Alert, oriented to person, place, and time Assessment/Plan: Atrial fibrillation, rate controlled. New diagnosis 09/2024, [id number], con tinue Eliquis 5 twice daily, Metoprolol 100 twice daily, cardio following, echocardiogram pending Acute urinary retention, continue Gallagher catheter - repeat bladder scan 10/06, continue tamsulosin Generalized weakness - PT/OT eval T2DM - contine sliding scale insulin, monitor for hypoglycemia HTN - continue lisinopril Dyslipidemia - continue to hold statin due to recent rhabdo Hypokalemia-40 mEq oral potassium given DVT prophylaxis: Eliquis Code status: Full code Anticipated discharge place: Pending clinical course Anticipated discharge time: Pending clinical course Catherine Hou MD PGY-1 FM Dictation was produced using [employer] dictation software. please excuse any grammatical, word or spelling errors. Octavia confidentiality statement: "The information contained in this communication, including attachments, is confidential, may be privileged, and is intended only for the use of the named recipient(s). Unauthorized use, disclosure, forwarding or copying is strictly prohibited and may be unlawful. If you have received this communication in error, please notify me IMMEDIATELY at the phone number or pager listed above." I have seen and evaluated the patient today. Discussed with the resident and agree with the residents finding and plan as documented in the resident's note. Changes highlighted in blue font. Objective - Vital Signs Vital signs: Vital Signs Temp 97.8 F 10/05/24 12:27 Pulse 96 10/05/24 12:27 Resp 16 10/05/24 12:27 BP 154/93 10/05/24 12:27 Pulse Ox 99 10/05/24 12:27 FiO2 Intake & Output 10/04/24 10/05/24 10/05/24 18:59 06:59 18:59 Output Total 1500 2175 651 Balance -1500 -2175 -651 Weight 77.5 kg Output: Urine 1500 2175 650 Uretheral (Gallagher) 1325 Stool 1 Other: Voiding Method Indwelling Catheter Indwelling Catheter Indwelling Catheter # Bowel Movements 2 - Labs CBC & Chem 7: 10/05/24 06:48 10/05/24 06:48 Labs: Abnormal Lab Results - Last 24 Hours (Table) 10/04/24 10/04/24 10/04/24 Range/Units 16:57 20:13 23:26 WBC 11.34 H (4.50-10.00) 10*3/uL RBC (4.40-5.60) X 10*6/uL Immature Gran # 0.07 H (0.00-0.04) 10*3/uL Neutrophils # 9.26 H (1.80-7.70) 10*3/uL Lymphocytes # 0.70 L (0.90-5.00) 10*3/uL Potassium (3.5-5.1) mmol/L Chloride (98-107) mmol/L Glucose (74-99) mg/dL POC Glucose (mg/dL) 205 H 213 H (70-110) mg/dL 10/05/24 10/05/24 10/05/24 Range/Units 05:56 06:48 06:48 WBC (4.50-10.00) 10*3/uL RBC 4.25 L (4.40-5.60) X 10*6/uL Immature Gran # (0.00-0.04) 10*3/uL Neutrophils # (1.80-7.70) 10*3/uL Lymphocytes # 0.89 L (0.90-5.00) 10*3/uL Potassium 3.4 L (3.5-5.1) mmol/L Chloride 108 H (98-107) mmol/L Glucose 205 H (74-99) mg/dL POC Glucose (mg/dL) 219 H (70-110) mg/dL 10/05/24 Range/Units 11:43 WBC (4.50-10.00) 10*3/uL RBC (4.40-5.60) X 10*6/uL Immature Gran # (0.00-0.04) 10*3/uL Neutrophils # (1.80-7.70) 10*3/uL Lymphocytes # (0.90-5.00) 10*3/uL Potassium (3.5-5.1) mmol/L Chloride (98-107) mmol/L Glucose (74-99) mg/dL POC Glucose (mg/dL) 161 H (70-110) mg/dL
[2024-10-05 15:48] LABS: Cholesterol 97.00 mg/dL (0.00-200.00); HDL Cholesterol 15.50 mg/dL (40.00-60.00); LDL Cholesterol,Calculated 44.3 mg/dL (0.0-131.0); Triglycerides 186.00 mg/dL (0.00-149.00); VLDL Calculation 37.20 mg/dL (5.00-40.00)
[2024-10-05 16:24] LABS: Glucose,Whole Blood 274 mg/dL (70-110)
[2024-10-05] MEDS: ASPIRIN 81 MG PO SCH (16:41)
--- NOTE | 2024-10-05 19:28 | CA ---
Transthoracic Echo Report Name: Geraldo Bales Age: 78 Gender: M : 1945 Exam Date: 10/05/2024 08:18 Exam Location: [facility] Ht (in): 71 Wt (lb): 187 Ordering Physician: Carol Avila MD Attending/Referring Phys: [id number], Margarita Special Procedures Tech Sheree Grace RDCS Procedure CPT: Indications: new afib Cardiac Hx: Technical Quality: Fair Contrast 1: Total Dose (mL): Contrast 2: Total Dose (mL): MEASUREMENTS (Male / Female) Normal Values 2D ECHO LV Diastolic Diameter PLAX 4.6 cm 4.2 - 5.9 / 3.9 - 5.3 cm LV Systolic Diameter PLAX 2.7 cm IVS Diastolic Thickness 1.0 cm 0.6 - 1.0 / 0.6 - 0.9 cm LVPW Diastolic Thickness 1.1 cm 0.6 - 1.0 / 0.6 - 0.9 cm LV Relative Wall Thickness 0.5 RV Internal Dim ED PLAX 3.0 cm LA Systolic Diameter LX 3.8 cm 3.0 - 4.0 / 2.7 - 3.8 cm LV Diastolic Volume MOD 4C 128.6 cm??? LV Systolic Volume MOD 4C 70.3 cm??? LV Ejection Fraction MOD 4C 45.4 % LV Cardiac Index MOD 4C 2703.4 cm???/min???m??? LV Diastolic Length 4C 8.7 cm LV Systolic Length 4C 7.7 cm LV Diastolic Volume MOD 2C 70.6 cm??? LV Systolic Volume MOD 2C 38.0 cm??? LV Ejection Fraction MOD 2C 46.2 % LV Cardiac Index MOD 2C 1510.8 cm???/min???m??? LV Diastolic Length 2C 8.6 cm LV Systolic Length 2C 7.3 cm M-MODE Aortic Root Diameter MM 3.1 cm LA Systolic Diameter MM 1.8 cm LA Ao Ratio MM 0.6 DOPPLER AV Peak Velocity 130.3 cm/s AV Peak Gradient 6.8 mmHg AV Mean Velocity 86.8 cm/s AV Mean Gradient 3.5 mmHg AV Velocity Time Integral 20.9 cm LVOT Peak Velocity 102.1 cm/s LVOT Peak Gradient 4.2 mmHg LVOT Velocity Time Integral 17.9 cm FINDINGS Left Ventricle Left ventricular ejection fraction is estimated at 40-45 %. Left ventricular cavity size normal. Left ventricular wall thickness normal. Right Ventricle Normal right ventricular size. Unable to estimate the right ventricular systolic pressure. Right Atrium Normal right atrial size. No right atrial thrombus or mass seen. Left Atrium Normal left atrial size. No left atrial thrombus or mass present. Mitral Valve Structurally normal mitral valve. No evidence for mitral valve prolapse. No mitral stenosis. Mild mitral regurgitation. Aortic Valve Trileaflet aortic valve. Aortic valve sclerosis. No aortic stenosis. No aortic regurgitation. Tricuspid Valve Structurally normal tricuspid valve. No tricuspid stenosis, regurgitation or prolapse. Pulmonic Valve Pulmonic valve not well visualized. Pericardium No pericardial effusion. Aorta Normal size aortic root and proximal ascending aorta. CONCLUSIONS Reason for echo: New onset atrial fibrillation Patient in atrial fibrillation with RVR. Mildly reduced LV systolic function ejection fraction 45% Previewed by: Dr. Yang Toro MD (Electronically Signed) Final Date: 05 October 2024 19:27
[2024-10-05 20:08] LABS: Glucose,Whole Blood 328 mg/dL (70-110)
[2024-10-05] MEDS: INSULIN LISPRO (HumaLOG) 100 UNIT/ML 10 mL VL SQ ONE (21:45)
[2024-10-06 05:37] LABS: Glucose,Whole Blood 165 mg/dL (70-110)
[2024-10-06 08:17] LABS: Basophils # (A) 0.10 10*3/uL (0.00-0.10); Basophils % (A) 1.3 %; Eosinophils # (A) 0.81 10*3/uL (0.04-0.35); Eosinophils % (A) 10.4 %; HCT 38.0 % (39.6-50.0); HGB 12.8 g/dL (13.0-17.0); Lymphocytes # (A) 1.06 10*3/uL (0.90-5.00); Lymphocytes % (A) 13.6 %; MCH 31.8 pg (27.0-32.0); MCHC 33.7 g/dL (32.0-37.0); MCV 94.3 fL (80.0-97.0); Monocytes # (A) 0.81 10*3/uL (0.20-1.00); Monocytes % (A) 10.4 %; Neutrophils # (A) 4.93 10*3/uL (1.80-7.70); Neutrophils % (A) 63.5 %; Platelet Count 230 10*3/uL (140-440); RBC 4.03 10*6/uL (4.40-5.60); RDW 13.6 % (11.5-14.5); WBC 7.77 10*3/uL (4.50-10.00)
[2024-10-06 08:37] LABS: ALT 59 U/L (4-49); AST 38 U/L (17-59); African American GFR (CKD) >90 (>60 ml/min/1.73 sqM); Albumin 2.8 g/dL (3.5-5.0); Alkaline Phosphatase 132 U/L (38-126); Anion Gap 6 mmol/L; Blood Urea Nitrogen 19 mg/dL (9-20); Calcium 8.7 mg/dL (8.4-10.2); Carbon Dioxide 29 mmol/L (22-30); Chloride 106 mmol/L (98-107); Glucose 158 mg/dL (74-99); Magnesium 1.5 mg/dL (1.6-2.3); Non-African American GFR(CKD) 84 (>60 ml/min/1.73 sqM); Potassium 3.6 mmol/L (3.5-5.1); Sodium 141 mmol/L (137-145); Total Protein 5.4 g/dL (6.3-8.2)
[2024-10-06] MEDS: LIDOCAINE 4% PATCH TOPICAL SCH (09:54)
--- NOTE | 2024-10-06 10:31 | P.PN ---
Subjective Progress Note Date: 10/06/24 HISTORY OF PRESENTING ILLNESS: 78-year-old with past medical history of CAD status post CABG, dyslipidemia diabetes hypertension asthma. Apparently patient was on a ladder clearing his roof gutters when he had a fall and could not get up with prolonged immobility with concerns of rhabdomyolysis. On admission his CPK was more than 2000, with mild evidence of CHARLEY urinary retention requiring Romero catheterization, mild right hydronephrosis. He was also having generalized weakness, debility and some electrolyte imbalance. Yesterday it was noted that patient was in atrial fibrillation which is a new d iagnosis for him. For this cardiology was consulted. He denies having any active chest pain chest pressure shortness of breath. Denies any palpitation symptoms. He denies feeling sick before he had a mechanical fall. Admission ECG shows normal sinus rhythm Repeat ECG shows atrial fibrillation, rate controlled Telemetry shows atrial fibrillation Pertinent labs, TSH 3.5, NT-proBNP 7450, BUN 18, creatinine 0.8, magnesium 1.6 potassium 3.4. 10/06/2024 Seen and examined at bedside this a.m. Blood pressure 150 systolic, labs shows potassium 3.6, magnesium 1.5. Will give him additional magnesium. He is in sinus rhythm at this time with heart rate around 180s. He is going in and out of atrial fibrillation when reviewing his 24-hour telemetry REVIEW OF SYSTEMS: 14 point review of system is negative except what is mentioned above in HPI. PHYSICAL EXAMINATION: Neck: Brisk carotid upstroke, no jugular venous distention. Lungs: Clear to auscultation. Heart: Irregular rate and rhythm, S1-S2, , no murmur or rub. Chest surgical scar is intact Abdomen: Soft nontender, positive bowel sounds. Extremities: No edema, intact distal pulses. Neuro: Alert, oritented, no focal deficits. Detailed neuro exam was not performed. ASSESSMENT: # Atrial fibrillation, rate controlled. New diagnosis 09/2024, [id number] # CAD status post CABG # Essential hypertension # Type 2 diabetes # Dyslipidemia # Admitted with mechanical fall, rhabdomyolysis, CHARLEY with urinary retention, generalized weakness PLAN: Replace electrolyte. Keep potassium at 4 magnesium at 2. Give 2 g of magnesium sulfate IV Start Eliquis 5 mg twice daily. Discontinue Plavix. Start aspirin 81 mg daily for history of CABG Continue metoprolol 100 twice daily, Goal is to continue metoprolol at this time and discharge him on a Holter monitor. If he has significant A-fib burden, consider rhythm control with amiodarone or catheter ablation. Objective - Vital Signs Vital signs: Vital Signs Temp 98.5 F 10/06/24 04:00 Pulse 96 10/06/24 08:33 Resp 16 10/06/24 08:33 BP 152/75 10/06/24 08:33 Pulse Ox 92 L 10/06/24 08:33 FiO2 Intake & Output 10/05/24 10/06/24 10/06/24 18:59 06:59 18:59 Intake Total 377 780 237 Output Total 827 1060 300 Balance -450 -280 -63 Weight 89.5 kg Intake: Oral 377 780 237 Output: Urine 825 1060 300 Stool 2 Other: Voiding Method Indwelling Catheter Indwelling Catheter - Labs CBC & Chem 7: 10/06/24 07:44 10/06/24 07:44 Labs: Abnormal Lab Results - Last 24 Hours (Table) 10/05/24 10/05/24 10/05/24 Range/Units 06:48 06:48 06:48 RBC 4.25 L (4.40-5.60) X 10*6/uL Hgb (13.0-17.0) g/dL Hct (39.6-50.0) % Immature Gran # (0.00-0.04) 10*3/uL Lymphocytes # 0.89 L (0.90-5.00) X 10*3/uL Eosinophils # (0.04-0.35) 10*3/uL Glucose (74-99) mg/dL POC Glucose (mg/dL) (70-110) mg/dL Hemoglobin A1c 7.1 H (<=6.0) % Magnesium (1.6-2.3) mg/dL Total Bilirubin (0.2-1.3) mg/dL ALT (4-49) U/L Alkaline Phosphatase (38-126) U/L Total Protein (6.3-8.2) g/dL Albumin (3.5-5.0) g/dL Triglycerides 186.00 H (0.00-149.00) mg/dL HDL Cholesterol 15.50 L (40.00-60.00) mg/dL 10/05/24 10/05/2425 Range/Units 11:43 16:22 20:03 RBC (4.40-5.60) X 10*6/uL Hgb (13.0-17.0) g/dL Hct (39.6-50.0) % Immature Gran # (0.00-0.04) 10*3/uL Lymphocytes # (0.90-5.00) X 10*3/uL Eosinophils # (0.04-0.35) 10*3/uL Glucose (74-99) mg/dL POC Glucose (mg/dL) 161 H 274 H 328 H (70-110) mg/dL Hemoglobin A1c (<=6.0) % Magnesium (1.6-2.3) mg/dL Total Bilirubin (0.2-1.3) mg/dL ALT (4-49) U/L Alkaline Phosphatase (38-126) U/L Total Protein (6.3-8.2) g/dL Albumin (3.5-5.0) g/dL Triglycerides (0.00-149.00) mg/dL HDL Cholesterol (40.00-60.00) mg/dL 10/06/24 10/06/24 10/06/24 Range/Units 05:34 07:44 07:44 RBC 4.03 L (4.40-5.60) X 10*6/uL Hgb 12.8 L (13.0-17.0) g/dL Hct 38.0 L (39.6-50.0) % Immature Gran # 0.06 H (0.00-0.04) 10*3/uL Lymphocytes # (0.90-5.00) X 10*3/uL Eosinophils # 0.81 H (0.04-0.35) 10*3/uL Glucose 158 H (74-99) mg/dL POC Glucose (mg/dL) 165 H (70-110) mg/dL Hemoglobin A1c (<=6.0) % Magnesium 1.5 L (1.6-2.3) mg/dL Total Bilirubin 1.5 H (0.2-1.3) mg/dL ALT 59 H (4-49) U/L Alkaline Phosphatase 132 H (38-126) U/L Total Protein 5.4 L (6.3-8.2) g/dL Albumin 2.8 L (3.5-5.0) g/dL Triglycerides (0.00-149.00) mg/dL HDL Cholesterol (40.00-60.00) mg/dL
[2024-10-06 11:32] LABS: Glucose,Whole Blood 231 mg/dL (70-110)
[2024-10-06] MEDS: MAGNESIUM SULFATE-D5W PMX 1 GM in DEXTROSE/WATER 1 100ML.BAG IVPB SCH (12:36)
[2024-10-06] MEDS: POTASSIUM CHLORIDE ER 20 MEQ TAB.ER PO STA (12:36)
[2024-10-06] MEDS: DAPAGLIFLOZIN PROPANEDIOL 10 MG TABLET PO SCH (12:39)
--- NOTE | 2024-10-06 15:25 | P.PN ---
Subjective Progress Note Date: 10/06/24 Hospital Course: Trauma imaging was unremarkable for fractures or dislocations, was found to have an elevated creatinine kinase >2000, no CHARLEY was noted. Started on aggressive IV fluid resuscitation with serial CK. Of note pt initially reported lower extremity muscle pain specifically, b/l knee pain. Also reported right-sided neck and mid back pain. pt. states he feels weak. Pt was started on a pain medic ation regimen and physical therapy evaluation was placed. Was started on low- dose insulin sliding scale for type 2 diabetes. Found to have CHARLEY on hospital day 2. Swithced to 150cc/hr LR from NS due to metablic acidosis, straight cath initiated then switched to gallagher catheter. Renal US showed right hydronephrosis. Switched from lovenox to HSQ. 10/04/2024 new onset a.fib with RVR asymptomatic [id number] = 5, cardizem bolus/drip to titrate to heart rate <110, switched to metoporlol 100 metoprolol bid, after cardizem d/c. CHF with ejection fraction of 40-45% per scho on 10/05/2024. Pro-bnp 7450. Gallagher discontinued and patient is urinating. Apixiban initiated at 5mg BID, aspirin 81mg daily for hisotry of CABG, pt denies any chest pain, palpitation and states he has been feeling better. potassium replaced to keep at 4, and Magnesium at 2, magnesium sulfate 2 g given. Patient states physical therapy is going well, physical therapy evaluation states benefits for short term post acute rehab placement. Subjective: Patient seen and examined at bedside. Glucose spiked to 326, insulin aspart 1 0units given, repeat glucose 165. Pertinent positives and negatives as discussed above, a complete review of systems was performed and all other systems are negative. Vitals: Signs Reviewed Physical Exam: Vital signs reviewed. General: nontoxic, no distress, appears at stated age Head: atraumatic, normocephalic, symmetric Eyes: EOMI, anicteric sclera Mouth: no lip lesion, mucus membranes moist Resp: comfortable on room air, no use of accessory muscles Abdominal: soft, non-tender to palpation, no appreciable organomegaly Extremities: b/l knee abrasions (wrapped), no gross muscle atrophy, no edema. Muscle strength 3/5 with b/l hip flexion. Neuro: Alert, Oriented, CNII-XII grossly intact Psych: well appearing, appropriate affect Data Received Today: Pertinent Labs: WBC: 11.34 > 8.41 > 7.77 RBC: 4.73 > 4.25 > 4.03 hgb: 15 > 13.4 > 12.8 POC glucose: 328 > 165 > 231 M.4 > 1.6 > 1.5 Imaging: EKG independently interpreted, shows atrial fibrillation with RVR, now sinus rhythm Assessment and Plan: Atrial fibrillation, rate controlled. New diagnosis 09/2024, [id number] 5, continue Eliquis 5 twice daily, Metoprolol 100 twice daily, cardio following, aspirin 81mg due to history of CABG CHF 40-45% EF - cardio following. continue metoprolol 100 bid, dapagliflozin 10 mg po qday., lisinopril 10mg qday, Acute urinary retention - catheter removed, patient urininating on his own - continue observing - continute tamsulosin 0.4mg BID Generalized weakness - PT/OT evaluation - Benefit for subactue rehab T2DM - contine sliding scale insulin, continue dapagliflozin 10mg qday monitor for hypoglycemia Hypokalemia - continue observation, 40 meq oral potassium given 10/06 12:36 HTN - continue lisinopril Dyslipidemia - continue to hold statin due to recent rhabdo DVT prophylaxis: Eliquis Code status: full code Anticipated discharge place: pending case management Anticipated discharge time: Pending case management Catherine Hou MD PGY-1 FM Dictation was produced using [employer] dictation software. please excuse any grammatical, word or spelling errors. I have seen and evaluated the patient today. Discussed with the resident and agree with the residents finding and plan as documented in the resident's note. Changes highlighted in blue font. Objective - Vital Signs Vital signs: Vital Signs Temp 97.8 F 10/06/24 12:35 Pulse 64 10/06/24 12:35 Resp 16 10/06/24 12:35 BP 160/80 10/06/24 12:35 Pulse Ox 95 10/06/24 12:35 FiO2 Intake & Output 10/05/24 10/06/24 10/06/24 18:59 06:59 18:59 Intake Total 377 780 474 Output Total 827 1060 300 Balance -450 -280 174 Weight 89.5 kg Intake: Oral 377 907 474 Output: Urine 825 1060 300 Stool 2 Other: Voiding Method Indwelling Catheter Indwelling Catheter - Labs CBC & Chem 7: 10/06/24 07:44 10/06/24 07:44 Labs: Abnormal Lab Results - Last 24 Hours (Table) 10/05/24 10/05/24 10/05/24 Range/Units 06:48 06:48 16:22 RBC (4.40-5.60) 10*6/uL Hgb (13.0-17.0) g/dL Hct (39.6-50.0) % Immature Gran # (0.00-0.04) 10*3/uL Eosinophils # (0.04-0.35) 10*3/uL Glucose (74-99) mg/dL POC Glucose (mg/dL) 274 H (70-110) mg/dL Hemoglobin A1c 7.1 H (<=6.0) % Magnesium (1.6-2.3) mg/dL Total Bilirubin (0.2-1.3) mg/dL ALT (4-49) U/L Alkaline Phosphatase (38-126) U/L Total Protein (6.3-8.2) g/dL Albumin (3.5-5.0) g/dL Triglycerides 186.00 H (0.00-149.00) mg/dL HDL Cholesterol 15.50 L (40.00-60.00) mg/dL 10/05/24 10/06/24 10/06/24 Range/Units 20:03 05:34 07:44 RBC 4.03 L (4.40-5.60) 10*6/uL Hgb 12.8 L (13.0-17.0) g/dL Hct 38.0 L (39.6-50.0) % Immature Gran # 0.06 H (0.00-0.04) 10*3/uL Eosinophils # 0.81 H (0.04-0.35) 10*3/uL Glucose (74-99) mg/dL POC Glucose (mg/dL) 328 H 165 H (70-110) mg/dL Hemoglobin A1c (<=6.0) % Magnesium (1.6-2.3) mg/dL Total Bilirubin (0.2-1.3) mg/dL ALT (4-49) U/L Alkaline Phosphatase (38-126) U/L Total Protein (6.3-8.2) g/dL Albumin (3.5-5.0) g/dL Triglycerides (0.00-149.00) mg/dL HDL Cholesterol (40.00-60.00) mg/dL 10/06/24 10/06/24 Range/Units 07:44 11:31 RBC (4.40-5.60) 10*6/uL Hgb (13.0-17.0) g/dL Hct (39.6-50.0) % Immature Gran # (0.00-0.04) 10*3/uL Eosinophils # (0.04-0.35) 10*3/uL Glucose 158 H (74-99) mg/dL POC Glucose (mg/dL) 231 H (70-110) mg/dL Hemoglobin A1c (<=6.0) % Magnesium 1.5 L (1.6-2.3) mg/dL Total Bilirubin 1.5 H (0.2-1.3) mg/dL ALT 59 H (4-49) U/L Alkaline Phosphatase 132 H (38-126) U/L Total Protein 5.4 L (6.3-8.2) g/dL Albumin 2.8 L (3.5-5.0) g/dL Triglycerides (0.00-149.00) mg/dL HDL Cholesterol (40.00-60.00) mg/dL
[2024-10-06 16:16] LABS: Glucose,Whole Blood 179 mg/dL (70-110)
[2024-10-06 20:08] LABS: Glucose,Whole Blood 191 mg/dL (70-110)
--- NOTE | 2024-10-07 06:05 | P.GSCN ---
History of Present Illness Consult date: 10/06/24 Reason for Consult: Urinary retention Requesting physician: Carol Avila History of present illness: The patient is a 78-year-old white male who fell approximately 10 feet from a ladder while cleaning his gutters on September 29, 2024. He was immobilized for an extended period following that. He presented to the ER on September 30 and was admitted. He indicated at that time that he had not voided for [address] scan at that time showed evidence of bladder distention. There was no hydronephrosis. A right renal lesion was noted, likely a cyst. I initially saw Mr. Bales in 2021 for evaluation of urinary retention. S pecifically, 1900 cc of urine was drained from his bladder when he presented with retention in July 2021. He has taken tamsulosin since that time. His urinary retention recurred in August 2022, possibly due to constipation. The retention resolved, and he was last seen in September 2022. At that time, he was taking tamsulosin 0.8 mg daily, and his postvoid residual was 171 cc. Review of Systems - Genitourinary Reports as per HPI Past Medical History Past Medical History: Coronary Artery Disease (CAD), Chest Pain / Angina, Diabetes Mellitus, Hyperlipidemia, Hypertension Additional Past Medical History / Comment(s): agent orange History of Any Multi-Drug Resistant Organisms: None Reported Past Surgical History: Coronary Bypass/CABG Past Anesthesia/Blood Transfusion Reactions: No Reported Reaction Past Psychological History: No Psychological Hx Reported Smoking Status: Never smoker Past Alcohol Use History: None Reported Past Drug Use History: None Reported Medications and Allergies Home Medications Medication Instructions Recorded Confirmed Type ALPRAZolam [Xanax] 0.5 mg PO TID PRN 12/12/17 09/30/24 History Albuterol Inhaler [Ventolin Hfa 2 puff INHALATION RT-Q4H PRN 12/12/17 09/30/24 History Inhaler] Atorvastatin [Lipitor] 80 mg PO HS 12/12/17 09/30/24 History Clopidogrel Bisulfate [Plavix] 75 mg PO DAILY 12/12/17 09/30/24 History Fluticasone Nasal [place] [Flonase 1 spray EA NOSTRIL Q12H 12/12/17 09/30/24 History Nasal [place]] Loratadine [Claritin] 10 mg PO DAILY PRN 12/12/17 09/30/24 History Metoprolol Tartrate [Lopressor] 100 mg PO BID 12/12/17 09/30/24 History Montelukast [Singulair] 10 mg PO DAILY 12/12/17 09/30/24 History lisinopriL [Zestril] 5 mg PO BID 12/12/17 09/30/24 History metFORMIN HCL [Glucophage] 1,000 mg PO BID 12/12/17 09/30/24 History Fluticasone Propion/Salmeterol 1 puff INHALATION RT-BID 09/30/24 09/30/24 History [Fluticasone-Salmeterol 250-50] Nitroglycerin Sl Tabs [Nitrostat] 0.4 mg SUBLINGUAL Q5M PRN 09/30/24 09/30/24 History Tamsulosin [Flomax] 0.4 mg PO BID 09/30/24 09/30/24 History glipiZIDE [Glucotrol] 10 mg PO DAILY 09/30/24 09/30/24 History Allergies Allergy/AdvReac Type Severity Reaction Status Date / Time No Known Allergies Allergy Verified 09/30/24 19:05 Surgical - Exam Vital Signs Pulse Resp BP Pulse Ox 101 H 17 120/63 95 09/30/24 13:42 09/30/24 13:42 09/30/24 13:42 09/30/24 13:42 - General well developed, well nourished, no distress - Respiratory normal respiratory effort - Abdomen Abdomen: soft, non tender, no guarding, no rigid, no rebound - Genitourinary normal penis with no external lesions, testicles non-tender - Rectum Patient refused examination. - Psychiatric oriented to time, oriented to person, oriented to place, speech is normal, memory intact Results - Labs 10/06/24 07:44 10/06/24 07:44 Abnormal Lab Results - Last 24 Hours (Table) 10/05/24 10/05/24 10/05/24 Range/Units 06:48 06:48 06:48 RBC 4.25 L (4.40-5.60) X 10*6/uL Lymphocytes # 0.89 L (0.90-5.00) X 10*3/uL Potassium 3.4 L (3.5-5.1) mmol/L Chloride 108 H (98-107) mmol/L Glucose 205 H (74-99) mg/dL POC Glucose (mg/dL) (70-110) mg/dL Hemoglobin A1c 7.1 H (<=6.0) % Triglycerides (0.00-149.00) mg/dL HDL Cholesterol (40.00-60.00) mg/dL 10/05/24 10/05/24 10/05/24 Range/Units 06:48 11:43 16:22 RBC (4.40-5.60) X 10*6/uL Lymphocytes # (0.90-5.00) X 10*3/uL Potassium (3.5-5.1) mmol/L Chloride (98-107) mmol/L Glucose (74-99) mg/dL POC Glucose (mg/dL) 161 H 274 H (70-110) mg/dL Hemoglobin A1c (<=6.0) % Triglycerides 186.00 H (0.00-149.00) mg/dL HDL Cholesterol 15.50 L (40.00-60.00) mg/dL 10/05/24 10/06/24 Range/Units 20:03 05:34 RBC (4.40-5.60) X 10*6/uL Lymphocytes # (0.90-5.00) X 10*3/uL Potassium (3.5-5.1) mmol/L Chloride (98-107) mmol/L Glucose (74-99) mg/dL POC Glucose (mg/dL) 328 H 165 H (70-110) mg/dL Hemoglobin A1c (<=6.0) % Triglycerides (0.00-149.00) mg/dL HDL Cholesterol (40.00-60.00) mg/dL Diabetes panel 10/05/24 10/05/24 10/05/24 Range/Units 06:48 06:48 06:48 Sodium 142 (137-145) mmol/L Potassium 3.4 L (3.5-5.1) mmol/L Chloride 108 H (98-107) mmol/L Carbon Dioxide 27 (22-30) mmol/L BUN 18 (9-20) mg/dL Creatinine 0.88 (0.66-1.25) mg/dL Glucose 205 H (74-99) mg/dL Hemoglobin A1c 7.1 H (<=6.0) % Calcium 9.0 (8.4-10.2) mg/dL Triglycerides 186.00 H (0.00-149.00) mg/dL HDL Cholesterol 15.50 L (40.00-60.00) mg/dL Thyroid panel 10/05/24 Range/Units 06:48 TSH 3.520 (0.465-4.680) mIU/L Calcium panel 10/05/24 Range/Units 06:48 Calcium 9.0 (8.4-10.2) mg/dL Pituitary panel 10/05/24 10/05/24 Range/Units 06:48 06:48 Sodium 142 (137-145) mmol/L Potassium 3.4 L (3.5-5.1) mmol/L Chloride 108 H (98-107) mmol/L Carbon Dioxide 27 (22-30) mmol/L BUN 18 (9-20) mg/dL Creatinine 0.88 (0.66-1.25) mg/dL Glucose 205 H (74-99) mg/dL Calcium 9.0 (8.4-10.2) mg/dL TSH 3.520 (0.465-4.680) mIU/L Adrenal panel 10/05/24 Range/Units 06:48 Sodium 142 (137-145) mmol/L Potassium 3.4 L (3.5-5.1) mmol/L Chloride 108 H (98-107) mmol/L Carbon Dioxide 27 (22-30) mmol/L BUN 18 (9-20) mg/dL Creatinine 0.88 (0.66-1.25) mg/dL Glucose 205 H (74-99) mg/dL Calcium 9.0 (8.4-10.2) mg/dL - Imaging CT scan - abdomen: report reviewed, image reviewed Assessment and Plan (1) Retention of urine, unspecified Current Visit: Yes Status: Acute Code(s): R33.9 - RETENTION OF URINE, UNSPECIFIED SNOMED Code(s): 863052152 Plan: Continue tamsulosin 0.8 mg daily. Remove Romero catheter for a voiding trial prior to discharge. Bladder scan should be utilized to assess bladder emptying. If the postvoid residual is under 300 cc, the patient may be discharged home. If it is over 300 cc, the Romero catheter should be replaced and he should be discharged home with the catheter and follow-up with me as an outpatient. Time with Patient: Greater than 30
[2024-10-07] MEDS: POTASSIUM CHLORIDE ER 20 MEQ TAB.ER PO SCH (09:11)
[2024-10-07] MEDS: MAGNESIUM SULFATE-D5W PMX 1 GM in DEXTROSE/WATER 1 100ML.BAG IVPB SCH (09:15)
[2024-10-07 11:38] LABS: Glucose,Whole Blood 197 mg/dL (70-110)
--- NOTE | 2024-10-07 11:57 | P.PN ---
Subjective Progress Note Date: 10/07/24 Subjective: Patient seen and examined at bedside. No acute events overnight. Pertinent positives and negatives as discussed above, a complete review of systems was performed and all other systems are negative. Vitals Signs Reviewed. General: Nontoxic, no distress, appears at stated age, Romero catheter in place Derm: Warm, dry Head: Atraumatic, normocephalic, symmetric Eyes: EOMI, no lid lag, anicteric sclera Mouth: No lip lesion, mucus membranes moist Cardiovascular: S1S2 reg, no murmur Lungs: CTA bilateral, no rhonchi, no rales, no accessory muscle use Abdominal: Soft, nontender to palpation, no guarding, no appreciable organomegaly Ext: No gross muscle atrophy, no edema, no contractures Neuro: CN II-XI grossly intact, no focal neuro deficits Psych: Alert, oriented, appropriate affect Data Reviewed Today: Pertinent Labs: Glucose range between 158-191 Imaging: No new imaging Assessment and Plan: New onset atrial fibrillation, rate controlled - Continue on Eliquis 5 twice daily, metoprolol 100 twice daily HFrEF, EF 45%, not in exacerbation - On lisinopril 10 mg daily, metoprolol, Farxiga 10 mg daily - Unclear ischemic or nonischemic CHARLEY likely postrenal, resolved Acute urinary retention status post Romero catheter BPH Right hydronephrosis Mild traumatic rhabdomyolysis, resolved Mild metabolic acidosis, resolved - Holding fluids - No symptoms with regards to right hydronephrosis, continue to monitor renal function - Continue tamsulosin 0.4 twice daily Generalized weakness Debility -PT OT - Will likely need subacute rehab Hypokalemia, resolved Type 2 diabetes - Continue sliding scale insulin, monitor for hypoglycemia Resolved: Leukocytosis Chronic: Hypertension CAD Dyslipidemia-holding statin Asthma/COPD, not in exacerbation DVT ppx: Eliquis Code status: Full code Anticipated discharge place: Subacute rehab Anticipated discharge time: Pending insurance Auth Objective - Vital Signs Vital signs: Vital Signs Temp 98.3 F 10/07/24 08:30 Pulse 77 10/07/24 08:30 Resp 18 10/07/24 08:30 BP 142/65 10/07/24 08:30 Pulse Ox 95 10/07/24 08:30 FiO2 Intake & Output 10/06/24 10/07/24 10/07/24 18:59 06:59 18:59 Intake Total 711 720 237 Output Total 2001 1444 1700 [facility], [place] -3301 -282 [phone] Weight 90 kg Intake: Oral 711 720 237 Output: Urine 1999 1000 1700 Stool 2 2 Other: Voiding Method Indwelling Catheter Indwelling Catheter Indwelling Catheter - Labs CBC & Chem 7: 10/06/24 07:44 10/06/24 07:44 Labs: Abnormal Lab Results - Last 24 Hours (Table) 10/06/24 10/06/24 10/07/24 Range/Units 16:15 20:06 11:36 POC Glucose (mg/dL) 179 H 191 H 197 H (70-110) mg/dL
--- NOTE | 2024-10-07 13:52 | P.PN ---
Subjective Progress Note Date: 10/07/24 HISTORY OF PRESENTING ILLNESS: 78-year-old with past medical history of CAD status post CABG, dyslipidemia diabetes hypertension asthma. Apparently patient was on a ladder clearing his roof gutters when he had a fall and could not get up with prolonged immobility with concerns of rhabdomyolysis. On admission his CPK was more than 2000, with mild evidence of CHARLEY urinary retention requiring Romero catheterization, mild right hydronephrosis. He was also having generalized weakness, debility and some electrolyte imbalance. Yesterday it was noted that patient was in atrial fibrillation which is a new d iagnosis for him. For this cardiology was consulted. He denies having any active chest pain chest pressure shortness of breath. Denies any palpitation symptoms. He denies feeling sick before he had a mechanical fall. Admission ECG shows normal sinus rhythm Repeat ECG shows atrial fibrillation, rate controlled Telemetry shows atrial fibrillation Pertinent labs, TSH 3.5, NT-proBNP 7450, BUN 18, creatinine 0.8, magnesium 1.6 potassium 3.4. 10/06/2024 Seen and examined at bedside this a.m. Blood pressure 150 systolic, labs shows potassium 3.6, magnesium 1.5. Will give him additional magnesium. He is in sinus rhythm at this time with heart rate around 180s. He is going in and out of atrial fibrillation when reviewing his 24-hour telemetry 10/07/2024 Seen and examined at bedside this a.m. maintaining sinus rhythm. Denies any active chest pain chest pressure shortness of breath. Euvolemic. REVIEW OF SYSTEMS: 14 point review of system is negative except what is mentioned above in HPI. PHYSICAL EXAMINATION: Neck: Brisk carotid upstroke, no jugular venous distention. Lungs: Clear to auscultation. Heart: Irregular rate and rhythm, S1-S2, , no murmur or rub. Chest surgical scar is intact Abdomen: Soft nontender, positive bowel sounds. Extremities: No edema, intact distal pulses. Neuro: Alert, oritented, no focal deficits. Detailed neuro exam was not performed. ASSESSMENT: # Atrial fibrillation, rate controlled. New diagnosis 09/2024, [id number] # CAD status post CABG # Essential hypertension # Type 2 diabetes # Dyslipidemia # Admitted with mechanical fall, rhabdomyolysis, CHARLEY with urinary retention, generalized weakness PLAN: Replace electrolyte. Keep potassium at 4 magnesium at 2. Start Eliquis 5 mg twice daily. Discontinue Plavix. Start aspirin 81 mg daily for history of CABG Continue metoprolol 100 twice daily, Goal is to continue metoprolol at this time and discharge him on a Holter monitor. If he has significant A-fib burden, consider rhythm control with amiodarone or catheter ablation. Patient is cleared from cardiovascular standpoint. Recommend outpatient follow- up Objective - Vital Signs Vital signs: Vital Signs Temp 98.5 F 10/07/24 11:45 Pulse 63 10/07/24 11:45 Resp 18 10/07/24 11:45 BP 146/73 10/07/24 11:45 Pulse Ox 95 10/07/24 11:45 FiO2 Intake & Output 10/06/24 10/07/24 10/07/24 18:59 06:59 18:59 Intake Total 711 720 237 Output Total 2001 1002 1700 Balance -1291 -282 -1463 Weight 90 kg Intake: Oral 711 720 237 Output: Urine 1999 1000 1700 Stool 2 2 Other: Voiding Method Indwelling Catheter Indwelling Catheter Indwelling Catheter - Labs CBC & Chem 7: 10/06/24 07:44 10/06/24 07:44 Labs: Abnormal Lab Results - Last 24 Hours (Table) 10/06/24 10/06/24 10/07/24 Range/Units 16:15 20:06 11:36 POC Glucose (mg/dL) 179 H 191 H 197 H (70-110) mg/dL
[2024-10-07 16:52] LABS: Glucose,Whole Blood 228 mg/dL (70-110)
[2024-10-07 20:00] LABS: Glucose,Whole Blood 191 mg/dL (70-110)
[2024-10-08 05:54] LABS: Glucose,Whole Blood 146 mg/dL (70-110)
[2024-10-08 07:24] LABS: African American GFR (CKD) 84 (>60 ml/min/1.73 sqM); Anion Gap 7 mmol/L; Blood Urea Nitrogen 19 mg/dL (9-20); Calcium 9.1 mg/dL (8.4-10.2); Carbon Dioxide 25 mmol/L (22-30); Chloride 106 mmol/L (98-107); Glucose 148 mg/dL (74-99); Magnesium 1.9 mg/dL (1.6-2.3); Non-African American GFR(CKD) 73 (>60 ml/min/1.73 sqM); Potassium 4.6 mmol/L (3.5-5.1); Sodium 138 mmol/L (137-145)
--- NOTE | 2024-10-08 09:12 | P.PN ---
Subjective Progress Note Date: 10/08/24 Principal diagnosis: Urinary retention Patient has a Romero catheter in place due to recurrent urinary retention. The catheter is draining clear yellow urine. He is receiving tamsulosin. I suggested that the Romero catheter be removed today for a voiding trial. However, in the past he has required a longer course of Romero catheter drainage in order for the retention to resolve, and for this reason he wishes to leave the catheter in place and do the voiding trial next week as an outpatient. Objective - Vital Signs Vital signs: Vital Signs Temp 98.7 F 10/08/24 08:15 Pulse 76 10/08/24 08:15 Resp 19 10/08/24 08:15 BP 138/78 10/08/24 08:15 Pulse Ox 98 10/08/24 08:15 FiO2 Intake & Output 10/07/24 10/08/24 10/08/24 18:59 06:59 18:59 Intake Total 717 598 222 Output Total 3101 2930 Balance -2384 -2332 222 Intake: Oral 717 598 222 Output: Urine 3100 2930 Stool 1 Other: Voiding Method Indwelling Catheter Indwelling Catheter # Voids 1 - Constitutional General appearance: Present: average body habitus, cooperative, no acute distress - Genitourinary Genitourinary Comment(s): Romero catheter intact, draining clear yellow urine. Patient declines YOLANDA today. - Psychiatric Psychiatric: Present: A&O x's 3 - Labs CBC & Chem 7: 10/06/24 07:44 10/08/24 06:16 Labs: Abnormal Lab Results - Last 24 Hours (Table) 10/07/24 10/07/24 10/07/24 Range/Units 11:36 16:51 19:57 Glucose (74-99) mg/dL POC Glucose (mg/dL) 197 H 228 H 191 H (70-110) mg/dL 10/08/24 10/08/24 Range/Units 05:52 06:16 Glucose 148 H (74-99) mg/dL POC Glucose (mg/dL) 146 H (70-110) mg/dL Assessment and Plan (1) Retention of urine, unspecified Current Visit: Yes Status: Acute Code(s): R33.9 - RETENTION OF URINE, UNSPECIFIED SNOMED Code(s): 780683754 Plan: I suggested that the Romero catheter be removed today for a voiding trial. However, in the past he has required a longer course of Romero catheter drainage in order for the retention to resolve, and for this reason he wishes to leave the catheter in place and do the voiding trial next week as an outpatient. Arrangements will be made for this, and he will continue to take tamsulosin. Please notify me if I can be of any further assistance during this hospitalization.
[2024-10-08 11:12] LABS: Glucose,Whole Blood 286 mg/dL (70-110)
[2024-10-08] MEDS: oxyCODONE-APAP 7.5-325MG 1 EACH TAB PO PRN (13:05)
--- NOTE | 2024-10-08 13:27 | P.PN ---
Subjective Progress Note Date: 10/08/24 Hospital Course: Trauma imaging was unremarkable for fractures or dislocations, was found to have an elevated creatinine kinase >2000, no CHARLEY was noted. Started on aggressive IV fluid resuscitation with serial CK. Of note pt initially reported lower extremity muscle pain specifically, b/l knee pain. Also reported right-sided neck and mid back pain. pt. states he feels weak. Pt was started on a pain medic ation regimen and physical therapy evaluation was placed. Was started on low- dose insulin sliding scale for type 2 diabetes. Found to have CHARLEY on hospital day 2. Swithced to 150cc/hr LR from NS due to metablic acidosis, straight cath initiated then switched to gallagher catheter. Renal US showed right hydronephrosis. Switched from lovenox to HSQ. 10/04/2024 new onset a.fib with RVR asymptomatic [id number] = 5, cardizem bolus/drip to titrate to heart rate <110, switched to metoporlol 100 metoprolol bid, after cardizem d/c. CHF with ejection fraction of 40-45% per scho on 10/05/2024. Pro-bnp 7450. Gallagher discontinued and patient is urinating. Apixiban initiated at 5mg BID, aspirin 81mg daily for hisotry of CABG, pt denies any chest pain, palpitation and states he has been feeling better. potassium replaced to keep at 4, and Magnesium at 2, magnesium sulfate 2 g given. Patient had gallagher catheter put in for urinary retention, pt states he wants to keep it in until he goes outpatient. Patient states physical therapy is going well, physical therapy evaluation states benefits for short term post acute rehab placement. Case managment working on rehab for patient d/c Subjective: Patient seen and examined at bedside. No acute events overnight. Pertinent positives and negatives as discussed above, a complete review of systems was performed and all other systems are negative. Vitals: Signs Reviewed Physical Exam: Vital signs reviewed. General: nontoxic, no distress, appears at stated age Head: atraumatic, normocephalic, symmetric Eyes: EOMI, anicteric sclera Mouth: no lip lesion, mucus membranes moist Resp: comfortable on room air, no use of accessory muscles Abdominal: soft, non-tender to palpation, no appreciable organomegaly Extremities: b/l knee abrasions, no gross muscle atrophy, no edema. Muscle strength 3/5 with b/l hip flexion. Neuro: Alert, Oriented, CNII-XII grossly intact Psych: well appearing, appropriate affect Data Received Today: Pertinent Labs: Na: 138 K: 4.6 BUN 19 Cr 1.00 POC glucose 191 > 146 > 286 M.9 Assessment and Plan: Atrial fibrillation, rate controlled. New diagnosis 09/2024, [id number] 5, continue Eliquis 5 twice daily, Metoprolol 100 twice daily, cardio following, aspirin 81mg due to history of CABG, discountine plavix CHF 40-45% EF - cardio following. continue metoprolol 100 bid, dapagliflozin 10mg po qday., lisinopril 10mg qday, Acute urinary retention - catheter gallagher in place, pt wanting to wait until he is outpatient to get it removed, continue tamsulosin 0.4mg BID Generalized weakness - PT/OT evaluation - Benefit for subactue rehab T2DM - contine sliding scale insulin, continue dapagliflozin 10mg qday monitor for hypoglycemia Hypokalemia - continue observation, 40 meq oral potassium given 10/06 12:36 HTN - continue lisinopril Dyslipidemia - continue to hold statin due to recent rhabdo DVT ppx: Eliquis Code status: Full code Anticipated discharge place: pending case management Anticipated discharge time: Pending case management Catherine Hou MD PGY-1 FM Dictation was produced using [employer] dictation software. please excuse any grammatical, word or spelling errors. I have seen and evaluated the patient today. Discussed with the resident and agree with the residents subjective and objective as documented in the note above. We discussed the assessment and plan as below. New onset A-Fib: Rate controlled. Eliquis 5 mg PO BID. Metoprolol 100 mg PO BID. Cardiology on board, Holter monitor on discharge. HFrEF: EF 40-45%. Not in acute exacerbation. Farxiga 10 mg PO QD. Lisinopril 10 mg PO QD. Metoprolol as above. Consider K sparing diuretic. Cardiology on board. CHARLEY with obstructive uropathy: Status post Gallagher. Continue Flomax 0.4 mg PO BID. Patient would like to follow up with Urology outpatient for Gallagher removal understanding the risks of infection. Urology on board. Traumatic rhabdo: Improved with IV hydration. Abnormal UA: Asymptomatic. No indication for antibiotics. Hyperbilirubinemia and Transaminitis: CT AP shows cholelithiasis with no biliary duct dilation. Repeat CMP in the AM. COPD: Not in acute exacerbation. Albuterol neb Q4H PRN. Symbicort 2 INH BID. Singulair 10 mg PO QD. CAD: ASA 81 mg PO QD. Eliquis as above. Metoprolol as above. Would benefit from statin but will defer to PCP given acute rhabdo + transaminitis. DM: ISS with Accuchecks ACHS along with hypoglycemic precautions. HTN: Lisinopril + Metoprolol as above. Generalized weakness and Debility: PT and OT on board. Fall precautions. Plans for SNF when accepted. Resolved: Leukocytosis. Objective - Vital Signs Vital signs: Vital Signs Temp 97.7 F 10/08/24 11:42 Pulse 62 10/08/24 11:42 Resp 19 10/08/24 11:42 BP 124/79 10/08/24 11:42 Pulse Ox 97 10/08/24 11:42 FiO2 Intake & Output 10/07/24 10/08/24 10/08/24 18:59 06:59 18:59 Intake Total 717 598 340 Output Total 3101 2930 1601 Balance -9174 -7072 -2901 Intake: Oral 717 598 340 Output: Urine 3100 2930 1600 Stool 1 1 Other: Voiding Method Indwelling Catheter Indwelling Catheter Indwelling Catheter # Voids 1 - Labs CBC & Chem 7: 10/06/24 07:44 10/08/24 06:16 Labs: Abnormal Lab Results - Last 24 Hours (Table) 10/07/24 10/07/24 10/08/24 Range/Units 16:51 19:57 05:52 Glucose (74-99) mg/dL POC Glucose (mg/dL) 228 H 191 H 146 H (70-110) mg/dL 10/08/24 10/08/24 Range/Units 06:16 11:10 Glucose 148 H (74-99) mg/dL POC Glucose (mg/dL) 286 H (70-110) mg/dL
[2024-10-08 16:11] LABS: Glucose,Whole Blood 210 mg/dL (70-110)
[2024-10-08 20:15] LABS: Glucose,Whole Blood 233 mg/dL (70-110)
[2024-10-09 06:25] LABS: Glucose,Whole Blood 174 mg/dL (70-110)
[2024-10-09 08:31] LABS: ALT 48 U/L (4-49); AST 30 U/L (17-59); African American GFR (CKD) >90 (>60 ml/min/1.73 sqM); Albumin 3.6 g/dL (3.5-5.0); Alkaline Phosphatase 183 U/L (38-126); Anion Gap 11 mmol/L; Blood Urea Nitrogen 21 mg/dL (9-20); Calcium 9.5 mg/dL (8.4-10.2); Carbon Dioxide 22 mmol/L (22-30); Chloride 104 mmol/L (98-107); Glucose 150 mg/dL (74-99); Non-African American GFR(CKD) 87 (>60 ml/min/1.73 sqM); Potassium 4.7 mmol/L (3.5-5.1); Sodium 137 mmol/L (137-145); Total Protein 6.7 g/dL (6.3-8.2)
[2024-10-09 11:49] LABS: Glucose,Whole Blood 153 mg/dL (70-110)
[2024-10-09 12:01] VITALS: RESP 17
--- NOTE | 2024-10-09 15:47 | P.DS ---
Providers Date of admission: 09/30/24 18:28 Expected date of discharge: 10/09/24 Attending physician: Wang Valero Consults: 10/04/24 22:25 Consult Physician Routine Consulting Provider: Samson Romero Consult Reason/Comments: afib new Do you want consulting provider notified?: Yes 10/05/24 03:09 Consult Physician Routine Consulting Provider: Adithya Ramirez Consult Reason/Comments: Urinary retention Do you want consulting provider notified?: Yes, Notify in am Primary care physician: Harinder Myers Hospital Course: Discharge Diagnosis: new onset a.fib RVR CHF 40-45% EF Acute urinary retention T2DM HLD Hospital Course: Pt admitted due to fall. Trauma imaging was unremarkable for fractures or dislocations, was found to have an elevated creatinine kinase >2000. Started on IV fluid. Pt was started on a pain medication regimen and physical therapy evaluation was placed. Was started on low-dose insulin sliding scale for type 2 diabetes. Found to have CHARLEY on hospital day 2. Switched to 150cc/hr LR from NS due to metabolic acidosis, straight cath initiated then switched to gallagher catheter. Renal US showed right hydronephrosis. Switched from lovenox to HSQ. 10/04/2024 new onset a.fib with RVR asymptomatic [id number] = 5, cardizem bolus/drip to titrate to heart rate <110, switched to metoporlol 100 metoprolol bid, after cardizem d/c. CHF with ejection fraction of 40-45% per scho on 10/05/2024. Gallagher discontinued and patient is urinating. Apixiban initiated at 5mg BID, aspirin 81mg daily for history of CABG, pt denies any chest pain, palpitation and states he has been feeling better. potassium replaced to keep at 4, and Magnesium at 2. Patient had gallagher catheter put back in for urinary retention, pt states he wants to keep it in until he goes outpatient. Patient states physical therapy is going well, physical therapy evaluation states benefits for short term post acute rehab placement. Case management arranged rehab for patient d/c to [facility]. D/c Aspirin and continue plavix, will discharge on apixiban 5mg bid for new onset a.fib. 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 Patient seen and examined at bedside. Hemodynamically stable Vital signs reviewed and stable. Physical Exam: Vital signs reviewed. General: nontoxic, no distress, appears at stated age Head: atraumatic, normocephalic, symmetric Eyes: EOMI, anicteric sclera Mouth: no lip lesion, mucus membranes moist Resp: comfortable on room air, no use of accessory muscles Abdominal: soft, non-tender to palpation, no appreciable organomegaly Extremities: b/l knee abrasions, no gross muscle atrophy, no edema. Muscle strength 3/5 with b/l hip flexion. Neuro: Alert, Oriented, CNII-XII grossly intact Psych: well appearing, appropriate affect A total of greater than 30 minutes of time were spent preparing this complex discharge summary. Patient was discharged on 09/29/2024. Catherine Hou MD PGY-1 FM Dictation was produced using [employer] dictation software. please excuse any grammatical, word or spelling errors. I saw and evaluated the patient during the reyes and critical portions of this encounter, and discussed the case in detail with the resident author of this note, I agree with the Assessment and Plan, and my changes, if any, are highlighted in blue. Patient Condition at Discharge: Stable Plan - Discharge Summary Discharge Rx Participant: No New Discharge Prescriptions: New Apixaban [Eliquis] 5 mg PO BID #0 tab Lidocaine 4% Patch 1 patch TOPICAL DAILY patch oxyCODONE-APAP 7.5-325MG [Percocet 7.5-325 mg] 1 each PO Q4HR PRN #12 tab PRN Reason: Pain Continue Montelukast [Singulair] 10 mg PO DAILY metFORMIN HCL [Glucophage] 1,000 mg PO BID Atorvastatin [Lipitor] 80 mg PO HS Metoprolol Tartrate [Lopressor] 100 mg PO BID lisinopriL [Zestril] 5 mg PO BID Clopidogrel Bisulfate [Plavix] 75 mg PO DAILY Albuterol Inhaler [Ventolin Hfa Inhaler] 2 puff INHALATION RT-Q4H PRN PRN Reason: Shortness Of Breath Loratadine [Claritin] 10 mg PO DAILY PRN PRN Reason: Allergy Symptoms Fluticasone Nasal [place] [Flonase Nasal [place]] 1 spray EA NOSTRIL Q12H Tamsulosin [Flomax] 0.4 mg PO BID glipiZIDE [Glucotrol] 10 mg PO DAILY Nitroglycerin Sl Tabs [Nitrostat] 0.4 mg SUBLINGUAL Q5M PRN PRN Reason: Chest Pain Fluticasone Propion/Salmeterol [Fluticasone-Salmeterol 250-50] 1 puff INHALATION RT-BID ALPRAZolam [Xanax] 0.5 mg PO TID PRN #9 tab PRN Reason: Anxiety Discharge Medication List Albuterol Inhaler [Ventolin Hfa Inhaler] 2 puff INHALATION RT-Q4H PRN 12/12/17 [History] Atorvastatin [Lipitor] 80 mg PO HS 12/12/17 [History] Clopidogrel Bisulfate [Plavix] 75 mg PO DAILY 12/12/17 [History] Fluticasone Nasal [place] [Flonase Nasal [place]] 1 spray EA NOSTRIL Q12H 12/12/17 [History] Loratadine [Claritin] 10 mg PO DAILY PRN 12/12/17 [History] Metoprolol Tartrate [Lopressor] 100 mg PO BID 12/12/17 [History] Montelukast [Singulair] 10 mg PO DAILY 12/12/17 [History] lisinopriL [Zestril] 5 mg PO BID 12/12/17 [History] metFORMIN HCL [Glucophage] 1,000 mg PO BID 12/12/17 [History] Fluticasone Propion/Salmeterol [Fluticasone-Salmeterol 250-50] 1 puff INHALATION RT-BID 09/30/24 [History] Nitroglycerin Sl Tabs [Nitrostat] 0.4 mg SUBLINGUAL Q5M PRN 09/30/24 [History] Tamsulosin [Flomax] 0.4 mg PO BID 09/30/24 [History] glipiZIDE [Glucotrol] 10 mg PO DAILY 09/30/24 [History] ALPRAZolam [Xanax] 0.5 mg PO TID PRN #9 tab 10/09/24 [Rx] Apixaban [Eliquis] 5 mg PO BID #0 tab 10/09/24 [Rx] Lidocaine 4% Patch 1 patch TOPICAL DAILY patch 10/09/24 [Rx] oxyCODONE-APAP 7.5-325MG [Percocet 7.5-325 mg] 1 each PO Q4HR PRN #12 tab 10/09/24 [Rx] Follow up Appointment(s)/Referral(s): Reed Morales MD [Medical Doctor] - 1 Week Adithya Ramirez MD [STAFF PHYSICIAN] - 1 Week Harinder Myers DO [Primary Care Provider] - 1-2 days Activity/Diet/Wound Care/Special Instructions: Patient is to be discharged home with Gallagher catheter. Schedule follow-up appointment with Dr. Ramirez in 1 week for Gallagher catheter removal (this should be an plaster block layer appointment). Discharge Disposition: TRANSFER TO SNF/ECF
[2024-10-09 16:00] VITALS: BP 137/73; PULSE 64; TEMP 98.1
[2024-10-09 16:37] LABS: Glucose,Whole Blood 122 mg/dL (70-110)
--- NOTE | 2024-10-09 17:22 | CDI ---
Documentation Clarification Form Date: 10/09/2024 04:59:22 PM From: Diana Reed RN CCDS Phone: [phone] Admit Date: 09/30/2024 06:28:00 PM Patient Name: Geraldo Bales Visit Number: [id number] Discharge Date: ATTENTION: The Clinical Documentation Specialists (CDI) and [facility] Coding Staff appreciate your assistance in clarifying documentation. Please respond to the clarification below the line at the bottom and electronically sign. The CDI & [facility] Coding staff will review the response and follow-up if needed. Please note: Queries are made part of the Legal Health Record. If you have any questions, please contact the author of this message via ITS. Doctor Zia Farias MD Rhabdomyolysis secondary to extended immobility is documented 09/30 HP 10/07 Medicine notes, but is not noted in subsequent documentation. Clarification is requested. History/Risk Factors: 78 year old male presented to the ED after a mechanical fall and extended period of immobilization with no urine production for two days. . The patient complained of muscle pain. Medical History: DM, CAD and HTN. 09/30, HP. Clinical Indicators: Creatine Kinase 09/30 2288; 10/01: 736 Treatment: 09/30 0.9NS 1L IVFL, 09/30 10/01 0.9NS IV 150cc/hr Please clarify if the Rhabdomyolysis is: [ x ] Rhabdomyolysis secondary to extended immobility confirmed, resolved [ ] Rhabdomyolysis secondary to extended immobility ruled out [ ] Other condition, please specify [ ] Unable to determine (Template Last Revised: May 2020) MTDD
== END 2024-10-09 17:10 | DRG 558 ==
LOC: EC 13:37 → 4SSUR 18:28 → 3SCARD 10-04 22:47
PROVIDERS: ADMIT Student in an Organized Health Care Education/Training Program; ATTEND Student in an Organized Health Care Education/Training Program
DX: M62.82 Rhabdomyolysis (principal); E87.20 Acidosis, unspecified; N17.9 Acute kidney failure, unspecified; I11.0 Hypertensive heart disease with heart failure; D72.829 Elevated white blood cell count, unspecified; E11.9 Type 2 diabetes mellitus without complications; E86.0 Dehydration; E78.5 Hyperlipidemia, unspecified; I48.91 Unspecified atrial fibrillation; J44.89 Other specified chronic obstructive pulmonary disease; I50.20 Unspecified systolic (congestive) heart failure; N13.30 Unspecified hydronephrosis; Z79.4 Long term (current) use of insulin; N28.1 Cyst of kidney, acquired; M54.50 Low back pain, unspecified; R74.01 Elevation of levels of liver transaminase levels; W11.XXXA Fall on and from ladder, initial encounter; M54.2 Cervicalgia; M25.511 Pain in right shoulder; E87.6 Hypokalemia; I25.119 Atherosclerotic heart disease of native coronary artery with unspecified angina pectoris; K80.20 Calculus of gallbladder without cholecystitis without obstruction; N32.89 Other specified disorders of bladder; N40.1 Benign prostatic hyperplasia with lower urinary tract symptoms; R33.8 Other retention of urine; Z79.01 Long term (current) use of anticoagulants; Z79.02 Long term (current) use of antithrombotics/antiplatelets; Z79.82 Long term (current) use of aspirin; Z79.84 Long term (current) use of oral hypoglycemic drugs; Z79.899 Other long term (current) drug therapy; Z95.1 Presence of aortocoronary bypass graft
CPT/HCPCS: 36415; 70450; 71260; 72125; 74177; 76770; 80048; 80053; 80061; 81001; 82550; 83036; 83735; 83880; 84443; 85025; 85610; 85730; 93005; 93225; 93306; 94640; 96361; 96374; 96376; 99285

== ENCOUNTER 2024-10-20 04:35 | Emergency (ER) | payer OTHER ==
[2024-10-20 05:07] VITALS: TEMP 98.5
[2024-10-20] MEDS: LIDOCAINE 2% URO-JET JELLY 5 ML KIT URETHRAL ONE (05:42)
[2024-10-20] MEDS: HYDROmorphone 0.5 MG/0.5 ML SYRINGE IM STA (06:03)
--- NOTE | 2024-10-20 06:35 | ED ---
Male Urogenital HPI - General Chief complaint: Urogenital Stated complaint: Urinary retention Time Seen by Provider: 10/20/24 04:46 Source: patient Mode of arrival: EMS Limitations: no limitations - History of Present Illness Initial comments: This patient is a 78-year-old man who is sent here from rehab facility to have evaluation for urinary retention. The patient states that he has suprapubic pressure, urge to urinate, and has not been able to pass any urine since approximately noon. The patient had been admitted in the hospital after a fall on September 30, being discharged in October 09. While he was in he had Romero catheter placed for urinary retention. The patient had the catheter taken out days ago but then developed retention symptoms at noon. Attempts was made to replace the catheter at the rehab facility but patient states that he was blood return and he was having pain. Patient states that he had been seen in the hospital by Dr. Ramirez. He did have prior history of urinary retention in July 2021 and recurring in August 2022, and had brief periods of Romero catheter followed by tamsulosin use. Patient has not noted fever or chills. No back pain. MD Complaint: other Onset/Timin -: hour(s) Location: abdomen Radiation: none Severity: moderate Quality: other (Pressure) Consistency: constant Improves with: none Worsens with: none Reports: urinary retention - Related Data Home Medications Medication Instructions Recorded Confirmed Albuterol Inhaler [Ventolin Hfa 2 puff INHALATION RT-Q4H PRN 12/12/17 09/30/24 Inhaler] Atorvastatin [Lipitor] 80 mg PO HS 12/12/17 09/30/24 Clopidogrel Bisulfate [Plavix] 75 mg PO DAILY 12/12/17 09/30/24 Fluticasone Nasal [place] [Flonase 1 spray EA NOSTRIL Q12H 12/12/17 09/30/24 Nasal [place]] Loratadine [Claritin] 10 mg PO DAILY PRN 12/12/17 09/30/24 Metoprolol Tartrate [Lopressor] 100 mg PO BID 12/12/17 09/30/24 Montelukast [Singulair] 10 mg PO DAILY 12/12/17 09/30/24 lisinopriL [Zestril] 5 mg PO BID 12/12/17 09/30/24 metFORMIN HCL [Glucophage] 1,000 mg PO BID 12/12/17 09/30/24 Fluticasone Propion/Salmeterol 1 puff INHALATION RT-BID 09/30/24 09/30/24 [Fluticasone-Salmeterol 250-50] Nitroglycerin Sl Tabs [Nitrostat] 0.4 mg SUBLINGUAL Q5M PRN 09/30/24 09/30/24 Tamsulosin [Flomax] 0.4 mg PO BID 09/30/24 09/30/24 glipiZIDE [Glucotrol] 10 mg PO DAILY 09/30/24 09/30/24 Previous Rx's Medication Instructions Recorded ALPRAZolam [Xanax] 0.5 mg PO TID PRN #9 tab 10/09/24 Apixaban [Eliquis] 5 mg PO BID #0 tab 10/09/24 Lidocaine 4% Patch 1 patch TOPICAL DAILY patch 10/09/24 oxyCODONE-APAP 7.5-325MG [Percocet 1 each PO Q4HR PRN #12 tab 10/09/24 7.5-325 mg] Allergies Allergy/AdvReac Type Severity Reaction Status Date / Time empagliflozin AdvReac Rash/Hives Verified 10/20/24 05:08 [From Jardiance] Review of Systems ROS Statement: Those systems with pertinent positive or pertinent negative responses have been documented in the HPI. ROS Other: All systems not noted in ROS Statement are negative. Constitutional: Denies: fever, chills, weakness Respiratory: Denies: cough, dyspnea Cardiovascular: Denies: chest pain, edema Gastrointestinal: Reports: abdominal pain. Denies: nausea, vomiting, diarrhea, constipation Genitourinary: Reports: as per HPI, other (Retention symptoms). Denies: dysuria, hematuria, testicular pain, testicular mass Musculoskeletal: Denies: back pain Skin: Denies: rash Neurological: Denies: headache, weakness Past Medical History Past Medical History: Coronary Artery Disease (CAD), Chest Pain / Angina, Diabetes Mellitus, Hyperlipidemia, Hypertension Additional Past Medical History / Comment(s): agent orange History of Any Multi-Drug Resistant Organisms: None Reported Past Surgical History: Coronary Bypass/CABG Past Anesthesia/Blood Transfusion Reactions: No Reported Reaction Past Psychological History: No Psychological Hx Reported Smoking Status: Never smoker Past Alcohol Use History: None Reported Past Drug Use History: None Reported General Exam Limitations: no limitations General appearance: alert, in no apparent distress Head exam: Present: atraumatic, normocephalic Eye exam: Present: normal appearance. Absent: scleral icterus, conjunctival injection Neck exam: Present: normal inspection Respiratory exam: Present: normal lung sounds bilaterally. Absent: respiratory distress, wheezes, rales, rhonchi, stridor, accessory muscle use Cardiovascular Exam: Present: regular rate, normal rhythm, normal heart sounds. Absent: systolic murmur, diastolic murmur, rubs, gallop GI/Abdominal exam: Present: soft. Absent: distended, tenderness, guarding, rebound, rigid, mass, pulsatile mass, hernia exam: Present: normal inspection, circumcision. Absent: scrotal swelling Extremities exam: Present: normal inspection, normal capillary refill. Absent: pedal edema, calf tenderness Back exam: Present: normal inspection. Absent: CVA tenderness (R), CVA tenderness (L) Neurological exam: Present: alert Skin exam: Present: warm, dry, intact, normal color. Absent: rash Course Vital Signs 10/20/24 10/20/24 04:58 07:30 Temperature 98.5 F Pulse Rate 76 85 Respiratory 17 22 Rate Blood Pressure 111/67 115/81 O2 Sat by Pulse 95 95 Oximetry Medical Decision Making - Medical Decision Making Was pt. sent in by a medical professional or institution ([facility], [facility], urgent care, hospital, or residential...) When possible be specific @ -[No] Did you speak to anyone other than the patient for history (EMS, parent, family, police, friend...)? What history was obtained from this source @ -[No] Did you review nursing and triage notes (agree or disagree)? Why? @ -[I reviewed and agree with nursing and triage notes] Were old charts reviewed (outside hosp., previous admission, EMS record, old EKG, old radiological studies, urgent care reports/EKG's, residential records)? Report findings @ -[No old charts were reviewed] Differential Diagnosis (chest pain, altered mental status, abdominal pain women, abdominal pain men, vaginal bleeding, weakness, fever, dyspnea, syncope, headache, dizziness, GI bleed, back pain, seizure, CVA, palpatations, mental health, musculoskeletal)? @ -[Differential Abdominal Pain Men: Appendicitis, cholecystitis, diverticulosis, ischemic bowel, pancreatitis, hepatitis, UTI, gastroenteritis, AAA, incarcerated hernia, bowel obstruction, constipation, inflammatory bowel, hepatitis, peptic ulcer disease, splenic infarction, perforated viscus, testicular torsion, this is not meant to be an all-inclusive list EKG interpreted by me (3pts min.). @ -[As above] X-rays interpreted by me (1pt min.). @ -[None done] CT interpreted by me (1pt min.). @ -[None done] U/S interpreted by me (1pt. min.). @ -[None done] What testing was considered but not performed or refused? (CT, X-rays, U/S, labs)? Why? @ -[None] What meds were considered but not given or refused? Why? @ -[None] Did you discuss the management of the patient with other professionals (professionals i.e. , PA, [facility], lab, RT, psych nurse, case management social worker, insurance case manager, teacher, information assurance officer, pillowcase cutter)? Give summary @ -[No] Was smoking cessation discussed for >3mins.? @ -[No] Was critical care preformed (if so, how long)? @ -[No] Were there social determinants of health that impacted care today? How? (Homelessness, low income, unemployed, alcoholism, drug addiction, transportation, low edu. Level, literacy, decrease access to med. care, nursing home, rehab)? @ -[No] Was there de-escalation of care discussed even if they declined (Discuss DNR or withdrawal of care, Hospice)? DNR status @ -[No] What co-morbidities impacted this encounter? (DM, HTN, Smoking, COPD, CAD, Cancer, CVA, ARF, Chemo, Hep., AIDS, mental health diagnosis, sleep apnea, morbid obesity)? @ -[None] Was patient admitted / discharged? Hospital course, mention meds given and route , prescriptions, significant lab abnormalities, going to OR and other pertinent info. @ -[Patient is 78-year-old man here to have evaluation of acute urinary retention. Nursing staff was not able to place Romero catheter. I subsequently attempted and was not able to pass catheter and case discussed with urology. Dr. Eddy was able to place catheter which relieved patient's symptoms he will go home with catheter in place and follow-up with the clinic. Undiagnosed new problem with uncertain prognosis? @ -[No] Drug Therapy requiring intensive monitoring for toxicity (Heparin, Nitro, Insulin, Cardizem)? @ -[No] Were any procedures done? @ -[No] Diagnosis/symptom? @ -[Acute urinary retention. Acute, or Chronic, or Acute on Chronic? @ -[Acute Uncomplicated (without systemic symptoms) or Complicated (systemic symptoms)? @ -[Complicated Side effects of treatment? @ -[No] Exacerbation, Progression, or Severe Exacerbation? @ -[No] Poses a threat to life or bodily function? How? (Chest pain, [place], [place], pneumonia, PE, COPD, DKA, ARF, appy, cholecystitis, CVA, Diverticulitis, Homicidal, Suicidal, threat to staff... and all critical care pts) @ -[No] All treatments are based on ideal body weight as in ED triage Disposition Clinical Impression: Acute retention of urine Disposition: HOME SELF-CARE Condition: Good Instructions (If sedation given, give patient instructions): Urinary Retention in Men (ED) Is patient prescribed a controlled substance at d/c from ED?: No Referrals: Harinder Myers DO [Primary Care Provider] - 1-2 days Adithya Ramirez MD [STAFF PHYSICIAN] - 1-2 days
--- NOTE | 2024-10-20 07:37 | P.GSCN ---
History of Present Illness Consult date: 10/20/24 History of present illness: 78-year-old gentleman brought to the emergency room from the [facility] facility because of inability to void. Patient has a known history of an enlarged prostate and sees . The nursing staff has attempted to pass the catheter and have failed. His postvoid residual when I was called was about 500 mL. We have been asked to see the patient. The patient states that he voids relatively well prior to coming to the hospital. He has had previous urine retention. He has not needed any surgery to date. The patient is post to be on on tamsulosin 0.4 twice daily at home. Unclear whether he is. He denies infection. He has not had previous urologic procedures. Review of Systems All systems: negative - Constitutional Denies fever, Denies weight loss - EENT Eyes: denies blurred vision Ears, nose, mouth and throat: Denies dysphagia - Cardiovascular Denies chest pain, Denies shortness of breath - Respiratory Denies cough, Denies 7 - Gastrointestinal Reports as per HPI - Genitourinary Denies dysuria, Denies hematuria - Integumentary Denies rash, Denies unusual bruising - Neurological Denies headaches, Denies syncope - Hematologic/Lymphatic Denies easy bleeding, Denies easy bruising Past Medical History Past Medical History: Coronary Artery Disease (CAD), Chest Pain / Angina, Diabetes Mellitus, Hyperlipidemia, Hypertension Additional Past Medical History / Comment(s): agent orange History of Any Multi-Drug Resistant Organisms: None Reported Past Surgical History: Coronary Bypass/CABG Past Anesthesia/Blood Transfusion Reactions: No Reported Reaction Past Psychological History: No Psychological Hx Reported Smoking Status: Never smoker Past Alcohol Use History: None Reported Past Drug Use History: None Reported Medications and Allergies Home Medications Medication Instructions Recorded Confirmed Type Albuterol Inhaler [Ventolin Hfa 2 puff INHALATION RT-Q4H PRN 12/12/17 09/30/24 History Inhaler] Atorvastatin [Lipitor] 80 mg PO HS 12/12/17 09/30/24 History Clopidogrel Bisulfate [Plavix] 75 mg PO DAILY 12/12/17 09/30/24 History Fluticasone Nasal [place] [Flonase 1 spray EA NOSTRIL Q12H 12/12/17 09/30/24 History Nasal [place]] Loratadine [Claritin] 10 mg PO DAILY PRN 12/12/17 09/30/24 History Metoprolol Tartrate [Lopressor] 100 mg PO BID 12/12/17 09/30/24 History Montelukast [Singulair] 10 mg PO DAILY 12/12/17 09/30/24 History lisinopriL [Zestril] 5 mg PO BID 12/12/17 09/30/24 History metFORMIN HCL [Glucophage] 1,000 mg PO BID 12/12/17 09/30/24 History Fluticasone Propion/Salmeterol 1 puff INHALATION RT-BID 09/30/24 09/30/24 History [Fluticasone-Salmeterol 250-50] Nitroglycerin Sl Tabs [Nitrostat] 0.4 mg SUBLINGUAL Q5M PRN 09/30/24 09/30/24 History Tamsulosin [Flomax] 0.4 mg PO BID 09/30/24 09/30/24 History glipiZIDE [Glucotrol] 10 mg PO DAILY 09/30/24 09/30/24 History ALPRAZolam [Xanax] 0.5 mg PO TID PRN #9 tab 10/09/24 Rx Apixaban [Eliquis] 5 mg PO BID #0 tab 10/09/24 Rx Lidocaine 4% Patch 1 patch TOPICAL DAILY patch 10/09/24 Rx oxyCODONE-APAP 7.5-325MG [Percocet 1 each PO Q4HR PRN #12 tab 10/09/24 Rx 7.5-325 mg] Allergies Allergy/AdvReac Type Severity Reaction Status Date / Time empagliflozin AdvReac Rash/Hives Verified 10/20/24 05:08 [From Jardiance] Surgical - Exam Vital Signs Temp Pulse Resp BP Pulse Ox 98.5 F 76 17 111/67 95 10/20/24 04:58 10/20/24 04:58 10/20/24 04:58 10/20/24 04:58 10/20/24 04:58 - General well developed, well nourished, moderate distress - Eyes normal ocular movement, no icteric - ENT no hearing loss, no congestion - Neck no masses, trachea midline - Respiratory normal respiratory effort, clear to auscultation - Abdomen Abdomen: soft, non tender, no guarding, no rigid, no rebound - Genitourinary The bladder is distended on physical examination normal penis with no external lesions, testicles present - Integumentary no rash, no abnormal pigmentation - Neurologic no disoriented, no combative - Psychiatric oriented to time, oriented to person, oriented to place, speech is normal, memory intact Assessment and Plan Assessment: Impression: BPH with obstruction. Urinary retention. Recommendations: Catheter placement
--- NOTE | 2024-10-20 07:40 | P.PCN ---
Date of Procedure: 10/20/24 Preoperative Diagnosis: Urine retention, inability nursing staff to place catheter Postoperative Diagnosis: Same Procedure(s) Performed: Difficult catheter placement Anesthesia: none Surgeon: Arya Leblanc Estimated Blood Loss (ml): 0 Pathology: none sent Condition: stable Indications for Procedure: The patient is 78. He has a history of enlarged prostate. He is in rehab at [facility]. He has been unable to urinate since yesterday. The nursing staff have been unable to pass the catheter after several attempts we were asked to see the patient. Description of Procedure: The patient was prepped and draped sterilely. The abdomen is obviously full of urine. The penis is circumcised. A 14 [place] coud tip catheter slowly passed into the urethra. He is quite uncomfortable and spasms. After I get him to relax I am able to manipulate the 14 [place] coud tip catheter into the bladder with clear urine return. Impression urinary retention secondary to enlarged prostate. Recommendations: The patient should keep his appoint with later this week in follow-up. He should go home with a catheter.
[2024-10-20 07:43] VITALS: BP 115/81; PULSE 85; RESP 22
== END 2024-10-20 08:30 | disposition home or self-care (01) ==
LOC: EC 04:35
DX: R33.8 Other retention of urine (principal); Z88.8 Allergy status to other drugs, medicaments and biological substances
CPT/HCPCS: 51798; 99283; 96372; 51702; J1171